=== PATIENT | female | born 1965 | race Caucasian/White ===

== ENCOUNTER → 2016-12-23 | Outpatient (CLI) | payer OTHER ==
--- NOTE | 2016-12-23 13:05 | MR ---
MR brain without contrast HISTORY: Memory loss Multiplanar multisequence imaging obtained through the brain and compared to CT brain dated 2013 FINDINGS: There is no restricted diffusion. The corpus callosum, pituitary, cervical medullary junction, cerebe llopontine angles are normal. There is a small pineal gland cyst present. There is no hydrocephalus o r hemorrhage. Inflammatory change again noted within the left maxillary sinus, ethmoid air cells. The orbits show a symmetric appearance. There are normal vascular flow voids. Periventricular white mat ter shows some minimal increased signal on inversion recovery and T2-weighted images IMPRESSION: Sinus disease. No acute abnormality. Some nonspecific white matter demyelination change a djacent to the posterior horns of the lateral ventricles is nonspecific.
== END | disposition home or self-care (01) ==
LOC: RADMRIMAIN 10:59
PROVIDERS: ATTEND Psychiatry & Neurology Neurology
DX: R41.3 Other amnesia (principal)
CPT/HCPCS: 70551

== ENCOUNTER 2016-12-30 08:18 | Day surgery (SDC) | payer OTHER ==
[2016-12-25 13:21] VITALS: BMI 19.5
[~2016-12-30 08:18] MED LIST: LIDOCAINE 1% 20 ML VIAL (10MG/ML) FOR IV START INTRADERMA PRN
[2016-12-30 08:47] VITALS: TEMP 99.2
[2016-12-30 08:58] LABS: Glucose,Whole Blood 99 mg/dL (75-99)
[2016-12-30] MEDS: LACTATED RINGERS 1,000 ML IV SCH ×2 (08:58→09:00)
[2016-12-30] MEDS ORDERED: LIDOCAINE 1% INJ 10MG/ML (20 ML MDV) ONE (09:04)
[2016-12-30] MEDS ORDERED: PROPOFOL 10 MG/ML 20 ML VIAL IV ONE (09:04)
[2016-12-30 09:57] VITALS: BP 120/64; PULSE 59; RESP 18
--- NOTE | 2017-02-17 17:49 | P.OP ---
Date of Procedure: 12/30/16 Preoperative Diagnosis: Weight loss Loss of appetite Change in bowel habits Depression Fibromyalgia Postoperative Diagnosis: Same Procedure(s) Performed: Colonoscopy with bx Anesthesia: MAC Surgeon: Tere Page Pathology: other Condition: stable Disposition: PACU Indications for Procedure: 51 years old female presents with weight loss, loss of appetite and alternating diarrhea and constipation. No history of colon cancer. informed consent obtained patient elected to undergo colonoscopy with possible biopsy Description of Procedure: The patient was brought to the endoscopy suite and placed in lateral decubitus position. IV sedation was given as per anesthesia team. Patient was on continuous vitals and pulse oximetry monitoring throughout the procedure. A timeout was performed to verify correct patient and correct procedure. Perianal examination did not show any external hemorrhoids. Digital rectal examination was performed. No masses or gross blood. A well-lubricated Olympus colonoscope was passed per rectally and was gradually advanced beyond the sigmoid colon, splenic flexure, transverse colon, hepatic flexure and cecum. The ileocecal valve was visualized as well as the appendiceal orifice . The colonoscope was gradually withdrawn inspecting all the mucosal surfaces. Bowel prep was good. No polyps, masses, AV malformations noted. No diverticulosis. Small rectal polyp identified which was biopsied using cold bx forceps. The scope was gradually withdrawn and retroflexed in the rectum . Grade 1 internal hemorrhoids seen. Total withdrawal time was greater than 6 minutes . Patient tolerated the procedure well and was taken to post anesthesia care unit in stable condition. Recommend repeat colonoscopy in 10 years . Final Pathologic Diagnosis RECTUM, BIOPSY: MUCOSAL HYPERPLASIA
== END 2016-12-30 10:41 | disposition home or self-care (01) ==
LOC: ORWHC2ENDO 08:18
PROVIDERS: ATTEND Surgery
DX: K62.1 Rectal polyp (principal); K64.0 First degree hemorrhoids; R19.4 Change in bowel habit; F17.200 Nicotine dependence, unspecified, uncomplicated; R63.0 Anorexia; M79.7 Fibromyalgia; R63.4 Abnormal weight loss; Z88.0 Allergy status to penicillin
CPT/HCPCS: 81025; 88305; 45380; J2001; J2704

== ENCOUNTER → 2017-01-01 | Outpatient (CLI) | payer OTHER ==
--- NOTE | 2017-01-01 13:32 | CT ---
EXAMINATION TYPE: CT abdomen pelvis w con DATE OF EXAM: 01/01/2017 1:00 PM HISTORY: abdominal pain, weight loss CT DLP: 329.5mGycm Automated Exposure Control for Dose Reduction was Utilized. CONTRAST: CT scan of the abdomen and pelvis is performed with IV Contrast, patient injected with 100 mL of Omni paque 300. COMPARISON: Complete abdominal ultrasound September 11, 2016 FINDINGS: Patient has very little intra-abdominal fat making evaluation suboptimal of the internal st ructures. LUNG BASES: No significant abnormality is appreciated. LIVER/GB: No significant abnormality is appreciated. PANCREAS: No significant abnormality is seen. SPLEEN: No significant abnormality is seen. ADRENALS: No significant abnormality is seen. KIDNEYS: No significant abnormality is seen. BOWEL: The oral contrast reaches level of the sigmoid colon. There is no suspicious small or large luis armando wel dilatation UTERUS/ADNEXA: Uterus has vertical orientation is not suspiciously enlarged. No free fluid is seen in pelvis. LYMPH NODES: No greater than 1cm abdominal or pelvic lymph nodes are appreciated. OSSEOUS STRUCTURES: No significant abnormality is seen. OTHER: There is mild to moderate mixed plaque in the distal abdominal aorta extending into iliac bran ch vessels. IMPRESSION: Suboptimal study due to lack of internal fat, no obvious mass or adenopathy identified. N o Significant acute finding is seen to account for patient's symptoms of pain.
== END | disposition home or self-care (01) ==
LOC: RADCTMAIN 12:31
PROVIDERS: ATTEND Surgery
DX: R10.9 Unspecified abdominal pain (principal); R63.4 Abnormal weight loss
CPT/HCPCS: 74177; Q9967

== ENCOUNTER → 2017-01-03 | Outpatient (CLI) | payer OTHER ==
[2017-01-03 12:22] VITALS: BMI 19.5
== END ==
LOC: MNTWWP 09:21
PROVIDERS: ATTEND Surgery
DX: R63.4 Abnormal weight loss (principal)
CPT/HCPCS: 97802

== ENCOUNTER 2017-07-02 00:09 | Emergency (ER) | payer OTHER ==
[2017-07-02] MEDS ORDERED: KETOROLAC 30 MG/ML 1 ML VIAL IVP STA (00:38)
[2017-07-02] MEDS ORDERED: ORPHENADRINE 30 MG/ML 2 ML VIAL IVP STA (00:38)
--- NOTE | 2017-07-02 00:59 | ED ---
General Adult HPI - General Chief complaint: Back Pain/Injury Stated complaint: Back Pain Time Seen by Provider: 07/02/17 00:31 Source: patient, RN notes reviewed Mode of arrival: ambulatory Limitations: no limitations - History of Present Illness Initial comments: This a 51-year-old female presents emergency Department chief complaint of left- sided mid back pain. Patient states his been bothersome last 4 days. Patient states it is worse movement and better at rest. Patient states she also has some pain when she takes a deep inspiration but she has no increased shortness breath. She states she has COPD and asthma and HAS some shortness of breath. Patient states that she's been working essentially every day and she lifts large amount of objects. Patient states that she has no headache no dizziness. Patient has no heart cardiac issues. Patient denies nausea vomiting diarrhea constipation. Patient denies any rashes noted to the region. - Related Data Previous Rx's Medication Instructions Recorded Cyclobenzaprine [Flexeril] 10 mg PO TID PRN #15 tab 07/02/17 Ibuprofen [Motrin] 600 mg PO Q8HR PRN #30 tab 07/02/17 Allergies Allergy/AdvReac Type Severity Reaction Status Date / Time Penicillins Allergy Severe Anaphylaxis Verified 07/02/17 00:13 Review of Systems ROS Statement: Those systems with pertinent positive or pertinent negative responses have been documented in the HPI. ROS Other: All systems not noted in ROS Statement are negative. Past Medical History Past Medical History: Asthma, COPD, Fibromyalgia, Osteoarthritis (OA) Additional Past Medical History / Comment(s): fibromyalgia,GLAUCOMA History of Any Multi-Drug Resistant Organisms: None Reported Past Surgical History: Appendectomy, Breast Surgery, Tonsillectomy, Tubal Ligation Additional Past Surgical History / Comment(s): CERVICAL SURGERY Past Anesthesia/Blood Transfusion Reactions: No Reported Reaction, Motion Sickness Past Psychological History: Anxiety, Depression, Panic Disorder, PTSD, Schizophrenia Smoking Status: Current every day smoker Past Alcohol Use History: Rare Past Drug Use History: Marijuana - Past Family History Brother(s) Family Medical History: Cancer Mother Family Medical History: Cancer Additional Family Medical History / Comment(s): MOTHER HAD BREAST CANCER Father History Unknown: Yes General Exam Limitations: no limitations General appearance: alert, in no apparent distress Neck exam: Present: normal inspection, full ROM. Absent: tenderness, meningismus, lymphadenopathy Respiratory exam: Present: normal lung sounds bilaterally, chest wall tenderness. Absent: respiratory distress, wheezes, rales, rhonchi, stridor Cardiovascular Exam: Present: regular rate, normal rhythm, normal heart sounds. Absent: systolic murmur, diastolic murmur, rubs, gallop, clicks GI/Abdominal exam: Present: soft, normal bowel sounds. Absent: distended, tenderness, guarding, rebound, rigid Back exam: Present: full ROM, tenderness (Tenderness along the left scapular region), paraspinal tenderness. Absent: vertebral tenderness Neurological exam: Present: alert, oriented X3, CN II-XII intact, reflexes normal. Absent: motor sensory deficit Skin exam: Present: warm, dry, intact, normal color. Absent: rash Course Vital Signs 07/02/17 00:13 Temperature 97.8 F Pulse Rate 70 Respiratory 18 Rate Blood Pressure 132/81 O2 Sat by Pulse 99 Oximetry EKG Findings - EKG Comments: EKG Findings:: EKG performed at 1:32 normal sinus rhythm with a rate of 69 [place] interval 158 QRS duration 88 QT/QTC 410/439 Medical Decision Making - Medical Decision Making 51-year-old female presented emergency department for thoracic back pain reproducible. Patient's pain is muscle skeletal in nature. Patient's EKG, chest x-ray and labwork within normal limits. Patient be discharged with anti- inflammatories and muscle relaxers. Return parameters were discussed. - Lab Data Result diagrams: 07/02/17 01:00 07/02/17 01:00 Lab Results 07/02/17 07/02/17 07/02/17 Range/Units 01:00 01:00 01:00 WBC 8.4 (3.8-10.6) k/uL RBC 4.43 (3.80-5.40) m/uL Hgb 14.0 (11.4-16.0) gm/dL Hct 41.8 (34.0-46.0) % MCV 94.4 (80.0-100.0) fL MCH 31.5 (25.0-35.0) pg MCHC 33.4 (31.0-37.0) g/dL RDW 14.0 (11.5-15.5) % Plt Count 216 (150-450) k/uL Neutrophils % 40 % Lymphocytes % 46 % Monocytes % 5 % Eosinophils % 7 % Basophils % 1 % Neutrophils # 3.3 (1.3-7.7) k/uL Lymphocytes # 3.8 (1.0-4.8) k/uL Monocytes # 0.5 (0-1.0) k/uL Eosinophils # 0.6 (0-0.7) k/uL Basophils # 0.1 (0-0.2) k/uL Sodium 141 (137-145) mmol/L Potassium 4.0 (3.5-5.1) mmol/L Chloride 105 (98-107) mmol/L Carbon Dioxide 27 (22-30) mmol/L Anion Gap 9 mmol/L BUN 13 (7-17) mg/dL Creatinine 0.70 (0.52-1.04) mg/dL Est GFR (MDRD) Af Amer >60 (>60 ml/min/1.73 sqM) Est GFR (MDRD) Non-Af >60 (>60 ml/min/1.73 sqM) Glucose 69 L (74-99) mg/dL Calcium 9.6 (8.4-10.2) mg/dL Magnesium 1.9 (1.6-2.3) mg/dL Total Bilirubin 0.2 (0.2-1.3) mg/dL AST 17 (14-36) U/L ALT 31 (9-52) U/L Alkaline Phosphatase 68 (38-126) U/L Troponin I <0.012 (0.000-0.034) ng/mL Total Protein 7.3 (6.3-8.2) g/dL Albumin 4.0 (3.5-5.0) g/dL Disposition Clinical Impression: Thoracic back pain, Muscle spasm Disposition: HOME SELF-CARE Condition: Stable Instructions: Back Pain (ED) Additional Instructions: Please return to the Emergency Department if symptoms worsen or any other concerns. Prescriptions: Cyclobenzaprine [Flexeril] 10 mg PO TID PRN #15 tab PRN Reason: Muscle Spasm Ibuprofen [Motrin] 600 mg PO Q8HR PRN #30 tab PRN Reason: Pain Referrals: Stepan Domingo DO [Primary Care Provider] - 1-2 days Time of Disposition: 02:06
[2017-07-02 01:10] LABS: Basophils # (A) 0.1 k/uL (0-0.2); Basophils % (A) 1 %; CHCM 35.1; Eosinophils # (A) 0.6 k/uL (0-0.7); Eosinophils % (A) 7 %; HCT 41.8 % (34.0-46.0); HDW 2.51; Luc # (Auto) 0.18; Luc % (Auto) 2; Lymphocytes # (A) 3.8 k/uL (1.0-4.8); Lymphocytes % (A) 46 %; MCH 31.5 pg (25.0-35.0); MCHC 33.4 g/dL (31.0-37.0); MCV 94.4 fL (80.0-100.0); Mean Platelet Volume 7.2; Monocytes # (A) 0.5 k/uL (0-1.0); Monocytes % (A) 5 %; Neutrophils # (A) 3.3 k/uL (1.3-7.7); Neutrophils % (A) 40 %; RBC 4.43 m/uL (3.80-5.40); WBC 8.4 k/uL (3.8-10.6); WBC (Perox) 8.09
[2017-07-02 01:20] LABS: ALT 31 U/L (9-52); AST 17 U/L (14-36); Alkaline Phosphatase 68 U/L (38-126); Anion Gap 9 mmol/L; Blood Urea Nitrogen 13 mg/dL (7-17); Calcium 9.6 mg/dL (8.4-10.2); Carbon Dioxide 27 mmol/L (22-30); Chloride 105 mmol/L (98-107); Glucose 69 mg/dL (74-99); Magnesium 1.9 mg/dL (1.6-2.3); Non-African American GFR(MDRD) >60 (>60 ml/min/1.73 sqM); Sodium 141 mmol/L (137-145); Total Bilirubin 0.2 mg/dL (0.2-1.3); Total Protein 7.3 g/dL (6.3-8.2)
--- NOTE | 2017-07-02 01:44 | XR ---
EXAM: XR Chest, 2 Views CLINICAL HISTORY: Reason: Cough/pain TECHNIQUE: Frontal and lateral views of the chest. COMPARISON: 07/23/2014 FINDINGS: Lungs: Evidence of COPD. Pleural space: Unremarkable. No pneumothorax. Heart: Unremarkable. No cardiomegaly. Mediastinum: Unremarkable. Bones/joints: Unremarkable. IMPRESSION: Evidence of COPD. No acute cardiopulmonary process suggested.
[2017-07-02 02:33] VITALS: BP 125/80; PULSE 65; RESP 15; TEMP 97.3
== END 2017-07-02 02:33 | disposition home or self-care (01) ==
LOC: EC 00:09
DX: M54.6 Pain in thoracic spine (principal); M62.830 Muscle spasm of back; R06.02 Shortness of breath; J44.9 Chronic obstructive pulmonary disease, unspecified; J45.909 Unspecified asthma, uncomplicated; F17.200 Nicotine dependence, unspecified, uncomplicated; Z88.0 Allergy status to penicillin
CPT/HCPCS: 36415; 85379; 80053; 83735; 84484; 85025; 71020; 99284; 96374; 96375; J2360; J1885

== ENCOUNTER 2018-07-14 07:13 | Emergency (ER) | payer OTHER ==
[2018-07-14] MEDS ORDERED: IPRATROPIUM-ALBUTEROL 3 ML NEB INHALATION STA (07:36)
[2018-07-14] MEDS ORDERED: methylPREDNISolone SOD SUCCI 125 MG/2 ML VIAL IM ONE (07:36)
[2018-07-14] MEDS ORDERED: cefTRIAXone 1,000 MG VIAL (IM USE) IM STA (07:37)
--- NOTE | 2018-07-14 07:41 | ED ---
General Adult HPI - General Chief complaint: Shortness of Breath Stated complaint: SOB Time Seen by Provider: 07/14/18 07:15 Source: patient, RN notes reviewed Mode of arrival: ambulatory Limitations: no limitations - History of Present Illness Initial comments: This is a 52-year-old female who presents emergency department stating that she has been coughing a lot over the last 4 so days. Patient states she started with a sore throat and then some facial congestion now quite a bit of drainage and cough. Patient states she's also smoker so she's been short of breath and particularly when coughing. Patient states she feels as though she is wheezing a lot more than normal. Patient states about 3 days ago she had a fever but she hasn't had one since. Patient states the sore throat is gone today. But the coughing and coughing up sputum is worse. Patient denies any chest pain or palpitations. Patient denies any back pain. Patient denies any abdominal pain patient denies nausea vomiting diarrhea. Patient denies any diaphoresis. Patient denies any calf tenderness or leg swelling - Related Data Home Medications Medication Instructions Recorded Confirmed Albuterol Inhaler [Ventolin Hfa 1 - 2 puff INHALATION RT-Q6H PRN 07/14/18 Inhaler] Phenylephrine/Dm/Acetaminop/GG 10 ml PO Q4H PRN 07/14/18 07/14/18 [Vicks Dayquil Severe Cold-Flu] guaiFENesin [Mucinex] 600 mg PO Q12H 07/14/18 07/14/18 Previous Rx's Medication Instructions Recorded Albuterol Inhaler [Ventolin Hfa 1 - 2 puff INHALATION Q6HR PRN #2 07/14/18 Inhaler] puff Azithromycin [Zithromax Tri-Duane] 500 mg PO DAILY #3 tab 07/14/18 predniSONE 40 mg PO DAILY #8 tab 07/14/18 Allergies Allergy/AdvReac Type Severity Reaction Status Date / Time Penicillins Allergy Severe Anaphylaxis Verified 07/14/18 07:39 Review of Systems ROS Statement: Those systems with pertinent positive or pertinent negative responses have been documented in the HPI. ROS Other: All systems not noted in ROS Statement are negative. Past Medical History Past Medical History: Asthma, COPD, Fibromyalgia, Osteoarthritis (OA) Additional Past Medical History / Comment(s): fibromyalgia,GLAUCOMA History of Any Multi-Drug Resistant Organisms: None Reported Past Surgical History: Appendectomy, Breast Surgery, Tonsillectomy, Tubal Ligation Additional Past Surgical History / Comment(s): CERVICAL SURGERY Past Anesthesia/Blood Transfusion Reactions: No Reported Reaction, Motion Sickness Past Psychological History: Anxiety, Depression, Panic Disorder, PTSD, Schizophrenia Smoking Status: Current every day smoker Past Alcohol Use History: Rare Past Drug Use History: Marijuana - Past Family History Brother(s) Family Medical History: Cancer Mother Family Medical History: Cancer Additional Family Medical History / Comment(s): MOTHER HAD BREAST CANCER Father History Unknown: Yes General Exam - General Exam Comments Initial Comments: GENERAL: Patient is well-developed and well-nourished. Patient is nontoxic and well- hydrated and is in mild distress. ENT: Neck is soft and supple. No significant lymphadenopathy is noted. Oropharynx is clear. Moist mucous membranes. Neck has full range of motion without eliciting any pain. EYES: The sclera were anicteric and conjunctiva were pink and moist. Extraocular movements were intact and pupils were equal round and reactive to light. Eyelids were unremarkable. PULMONARY: Patient has expiratory wheezing diffusely CARDIOVASCULAR: There is a regular rate and rhythm without any murmurs gallops or rubs. ABDOMEN: Soft and nontender with normal bowel sounds. No palpable organomegaly was noted. There is no palpable pulsatile mass. SKIN: Skin is clear with no lesions or rashes and otherwise unremarkable. NEUROLOGIC: Patient is alert and oriented x3. Cranial nerves II through XII are grossly intact. Motor and sensory are also intact. Normal speech, volume and content. Symmetrical smile. MUSCULOSKELETAL: Normal extremities with adequate strength and full range of motion. No lower extremity swelling or edema. No calf tenderness. LYMPHATICS: No significant lymphadenopathy is noted PSYCHIATRIC: Normal psychiatric evaluation. Limitations: no limitations Course Vital Signs 07/14/18 07/14/18 07/14/18 07:16 07:59 08:06 Temperature 98.4 F Pulse Rate 94 75 78 Respiratory 22 Rate Blood Pressure 165/102 O2 Sat by Pulse 98 Oximetry 07/14/18 09:07 Temperature 98.1 F Pulse Rate 78 Respiratory 18 Rate Blood Pressure 145/80 O2 Sat by Pulse 97 Oximetry Medical Decision Making - Medical Decision Making Chest x-ray shows no acute abnormality. Patient received a breathing treatment in emergency department steroids and a shot of Rocephin. I went back into the room to reevaluate the patient her lung sounds were much improved and she felt considerably better. Patient we discharged home with an albuterol inhaler steroids and antibiotics. Disposition Clinical Impression: Acute bronchitis Disposition: HOME SELF-CARE Instructions: Acute Bronchitis (ED) Prescriptions: Albuterol Inhaler [Ventolin Hfa Inhaler] 1 - 2 puff INHALATION Q6HR PRN #2 puff PRN Reason: Difficulty breathing Azithromycin [Zithromax Tri-Duane] 500 mg PO DAILY #3 tab predniSONE 40 mg PO DAILY #8 tab Is patient prescribed a controlled substance at d/c from ED?: No Referrals: Stepan Domingo DO [Primary Care Provider] - 1-2 days Time of Disposition: 09:21
[2018-07-14 08:11] VITALS: PULSE 78
--- NOTE | 2018-07-14 08:57 | XR ---
EXAMINATION TYPE: XR chest 2V DATE OF EXAM: 07/14/2018 COMPARISON: Prior chest x-ray 07/02/2017 HISTORY: Difficulty breathing, cough TECHNIQUE: Frontal and lateral views of the chest are obtained. FINDINGS: There is no focal air space opacity, pleural effusion, or pneumothorax seen. The cardiac silhouette size is within normal limits. Prominent lung volumes are compatible with underlying COPD. There is bronchial wall thickening. The osseous structures are intact. IMPRESSION: Correlate for bronchitis, reactive airways disease, follow-up as indicated.
[2018-07-14 09:08] VITALS: BP 145/80; RESP 18; TEMP 98.1
== END 2018-07-14 09:29 | disposition home or self-care (01) ==
LOC: EC 07:13
DX: J20.9 Acute bronchitis, unspecified (principal); J44.0 Chronic obstructive pulmonary disease with (acute) lower respiratory infection; M79.7 Fibromyalgia; M19.90 Unspecified osteoarthritis, unspecified site; F41.9 Anxiety disorder, unspecified; F32.9 Major depressive disorder, single episode, unspecified; F43.10 Post-traumatic stress disorder, unspecified; F20.9 Schizophrenia, unspecified; F17.200 Nicotine dependence, unspecified, uncomplicated; Z79.899 Other long term (current) drug therapy; Z88.0 Allergy status to penicillin
CPT/HCPCS: 94640; 71046; 99285; 96372 ×2; J2930; J0696

== ENCOUNTER 2019-02-20 00:21 | Emergency (ER) | payer OTHER ==
[2019-02-20 00:40] VITALS: TEMP 98.1
[2019-02-20] MEDS ORDERED: DIPH,PERTUS(ACELL)TETVAC-LF 0.5 ML VIAL IM ONE (00:47)
[2019-02-20] MEDS ORDERED: LIDOCAINE 1% INJ 10MG/ML (20 ML MDV) SQ ONE (00:47)
--- NOTE | 2019-02-20 00:52 | ED ---
Wound/Laceration HPI <Yosvany Love - Last Filed: 02/20/19 03:18> - General Source: patient Mode of arrival: ambulatory Limitations: no limitations <Angie Yi - Last Filed: 02/20/19 05:37> - General Chief Complaint: Wound/Laceration Stated Complaint: [facility] L Thumb Laceration Time Seen by Provider: 02/20/19 00:50 - History of Present Illness Initial Comments: Chelsea is a 53-year-old female presents to the emergency department today for evaluation of laceration to the left thumb. Patient states that she was slicing meat on a slicer at work when she inadvertently sliced her thumb. Patient states she had just sanitize the slicer earlier in the shift. Patient does not believe she's had a tetanus vaccine since she was a teenager. (Angie Yi) - Related Data Home Medications Medication Instructions Recorded Confirmed Albuterol Inhaler [Ventolin Hfa 1 - 2 puff INHALATION RT-Q6H PRN 07/14/18 07/14/18 Inhaler] Phenylephrine/Dm/Acetaminop/GG 10 ml PO Q4H PRN 07/14/18 07/14/18 [Vicks Dayquil Severe Cold-Flu] guaiFENesin [Mucinex] 600 mg PO Q12H 07/14/18 07/14/18 Previous Rx's Medication Instructions Recorded Albuterol Inhaler [Ventolin Hfa 1 - 2 puff INHALATION Q6HR PRN #2 07/14/18 Inhaler] puff Azithromycin [Zithromax Tri-Duane] 500 mg PO DAILY #3 tab 07/14/18 predniSONE 40 mg PO DAILY #8 tab 07/14/18 Allergies Allergy/AdvReac Type Severity Reaction Status Date / Time Penicillins Allergy Severe Anaphylaxis Verified 02/20/19 00:34 Review of Systems ROS Other: All systems not noted in ROS Statement are negative. <Yosvany Love - Last Filed: 02/20/19 03:18> ROS Other: All systems not noted in ROS Statement are negative. <Angie Yi - Last Filed: 02/20/19 05:37> ROS Statement: Those systems with pertinent positive or pertinent negative responses have been documented in the HPI. Past Medical History Past Medical History: Asthma, COPD, Fibromyalgia, Hypertension, Osteoarthritis (OA) Additional Past Medical History / Comment(s): fibromyalgia,GLAUCOMA History of Any Multi-Drug Resistant Organisms: None Reported Past Surgical History: Appendectomy, Breast Surgery, Tonsillectomy, Tubal Ligation Additional Past Surgical History / Comment(s): CERVICAL SURGERY Past Anesthesia/Blood Transfusion Reactions: No Reported Reaction, Motion Sickness Past Psychological History: Anxiety, Depression, Panic Disorder, PTSD, Schizophrenia Smoking Status: Current every day smoker Past Alcohol Use History: Rare Past Drug Use History: Marijuana - Past Family History Brother(s) Family Medical History: Cancer Mother Family Medical History: Cancer Additional Family Medical History / Comment(s): MOTHER HAD BREAST CANCER Father History Unknown: Yes <Angie Yi - Last Filed: 02/20/19 05:37> General Exam Limitations: no limitations <Angie Yi - Last Filed: 02/20/19 05:37> - General Exam Comments Initial Comments: Physical Exam GENERAL: Patient is well-developed and well-nourished. Patient is nontoxic and well-hydrated and is in moderate distress due to pain HENT: Normocephalic, Atraumatic. EYES: PERRL, EOMI PULMONARY: Unlabored respirations. No audible rales rhonchi or wheezing was noted. CARDIOVASCULAR: There is a regular rate and rhythm without any murmurs gallops or rubs. ABDOMEN: Soft and nontender with normal bowel sounds. SKIN: Very clean laceration to the left thumb, near amputation of the tip of the finger including finger nail, not including the nail bed : Deferred NEUROLOGIC: Patient is alert and oriented x3. Moving all extremities spontaneously MUSCULOSKELETAL: Normal extremities with adequate strength and full range of motion. No lower extremity swelling or edema. No calf tenderness. PSYCHIATRIC: Normal psychiatric evaluation. (Angie Yi) Course Vital Signs 02/20/19 02/20/19 02/20/19 00:29 03:12 04:33 Temperature 98.1 F Pulse Rate 86 70 68 Respiratory 20 16 16 Rate Blood Pressure 210/112 200/107 170/98 O2 Sat by Pulse 100 97 100 Oximetry Procedures - Incision & Drainage Site: other Size (cm): 2 Amount (mLs): 2 - Laceration Laceration #1 Consent Obtained: verbal consent Indication: laceration Site: upper extremity, other (R thumb) Size (cm): 2 Description: linear, stellate Anesthetic Used: lidocaine 1% Anesthesia Technique: local infiltration Amount (mls): 2 Pre-repair: wound explored, irrigated extensively (500mL NS ) Type of Sutures: nylon Size of Sutures: 5-0 Number of Sutures: 1 Technique: simple, interrupted Patient Tolerated Procedure: well, no complications <Yosvany Love - Last Filed: 02/20/19 03:18> Medical Decision Making <Angie Yi - Last Filed: 02/20/19 05:37> - Medical Decision Making Patient was seen and evaluated history is obtained from patient X-rays ordered to rule out any bony involvement Medications were ordered for nerve block and tetanus was ordered X-ray with no foreign bodies, no bony involvement laceration was repaired by mid-level provider Patient was noted to be hypertensive, I discussed this with patient states that her blood pressures usually 170/100. Single oral dose of Catapres was ordered. Patient's blood pressure decreased to her normal. I advised her that this is still very highly elevated and she needs follow-up with her primary care physician for better control of her hypertension. All questions pertaining care were answered return parameters were discussed patient was discharged home in stable condition and advised to return in one week for suture removal or return sooner if she has any concerns for infection. (Angie Yi) Disposition <Yosvany Love - Last Filed: 02/20/19 03:18> Is patient prescribed a controlled substance at d/c from ED?: No <Angie Yi - Last Filed: 02/20/19 05:37> Clinical Impression: Laceration Disposition: HOME SELF-CARE Condition: Stable Instructions (If sedation given, give patient instructions): Care For Your Stitches (ED), Laceration (ED) Referrals: Stepan Domingo DO [Primary Care Provider] - 1-2 days
[2019-02-20] MEDS: BUPIVACAINE (PF) 0.5% 30 ML VIAL SQ STA ×2 (01:15→03:11)
--- NOTE | 2019-02-20 01:20 | XR ---
EXAM: XR Left Finger(s), 2 or More Views CLINICAL HISTORY: Thumb laceration TECHNIQUE: Frontal, lateral and oblique views of finger(s) of the left hand. COMPARISON: No relevant prior studies available. FINDINGS: Bones/joints: Unremarkable. No acute fracture. No dislocation. Soft tissues: Unremarkable. No radiopaque foreign body. IMPRESSION: Normal x-rays of the visualized left fingers.
[2019-02-20] MEDS ORDERED: TOPICAL SKIN ADHESIVE 1 EACH AMP TOPICAL ONE (02:41)
[2019-02-20 03:13] VITALS: RESP 16
[2019-02-20] MEDS ORDERED: cloNIDine HCL 0.1 MG TAB PO STA (03:15)
[2019-02-20 04:34] VITALS: BP 170/98; PULSE 68
== END 2019-02-20 04:40 | disposition home or self-care (01) ==
LOC: EC 00:21
DX: S61.012A Laceration without foreign body of left thumb without damage to nail, initial encounter (principal); I10 Essential (primary) hypertension; J44.9 Chronic obstructive pulmonary disease, unspecified; F17.200 Nicotine dependence, unspecified, uncomplicated; Z88.0 Allergy status to penicillin; Z79.899 Other long term (current) drug therapy; Z23 Encounter for immunization; Z53.8 Procedure and treatment not carried out for other reasons; W26.8XXA Contact with other sharp object(s), not elsewhere classified, initial encounter; Y93.G1 Activity, food preparation and clean up; Y92.69 Other specified industrial and construction area as the place of occurrence of the external cause; Y99.0 Civilian activity done for income or pay
CPT/HCPCS: 73140; 90715; 99283; 90471; 12001; J2001

== ENCOUNTER 2019-09-24 08:15 | Emergency (ER) | payer OTHER ==
[2019-09-24 08:24] VITALS: RESP 18
[2019-09-24] MEDS ORDERED: HYDROcodone/APAP 5-325MG 1 EACH TAB PO STA (08:31)
--- NOTE | 2019-09-24 08:34 | ED ---
Fall HPI - General Chief Complaint: Fall Stated Complaint: Fall Time Seen by Provider: 09/24/19 08:21 Source: patient, EMS, RN notes reviewed, old records reviewed Mode of arrival: EMS - History of Present Illness Initial Comments: 53-year-old female. She presents emergency department stay after tripping down her stairs. She reports that she tumbled down approximately 8-10 stairs. She states that she did do a head over heels flip at that time and then landed on her left shoulder. She reports that her main complaint is left shoulder pain. Patient states that she has had some minor neck pain. Patient also states that she's been having some minor left-sided rib pain with taking a deep breath. She denies any abdominal pain. Patient does not heal thinners. - Related Data Home Medications Medication Instructions Recorded Confirmed Albuterol Inhaler [Ventolin Hfa 1 - 2 puff INHALATION RT-Q6H PRN 07/14/18 07/14/18 Inhaler] Phenylephrine/Dm/Acetaminop/GG 10 ml PO Q4H PRN 07/14/18 07/14/18 [Vicks Dayquil Severe Cold-Flu] guaiFENesin [Mucinex] 600 mg PO Q12H 07/14/18 07/14/18 Previous Rx's Medication Instructions Recorded Albuterol Inhaler [Ventolin Hfa 1 - 2 puff INHALATION Q6HR PRN #2 07/14/18 Inhaler] puff Azithromycin [Zithromax Tri-Duane] 500 mg PO DAILY #3 tab 07/14/18 predniSONE 40 mg PO DAILY #8 tab 07/14/18 HYDROcodone/APAP 5-325MG [Coldiron 1 tab PO Q6HR PRN #10 tab 09/24/19 5-325] Ibuprofen [Motrin] 600 mg PO Q6HR PRN #20 tab 09/24/19 Allergies Allergy/AdvReac Type Severity Reaction Status Date / Time Penicillins Allergy Severe Anaphylaxis Verified 02/20/19 00:34 Review of Systems ROS Statement: Those systems with pertinent positive or pertinent negative responses have been documented in the HPI. ROS Other: All systems not noted in ROS Statement are negative. Past Medical History Past Medical History: Asthma, COPD, Fibromyalgia, Hypertension, Osteoarthritis (OA) Additional Past Medical History / Comment(s): fibromyalgia,GLAUCOMA History of Any Multi-Drug Resistant Organisms: None Reported Past Surgical History: Appendectomy, Breast Surgery, Tonsillectomy, Tubal Ligation Additional Past Surgical History / Comment(s): CERVICAL SURGERY Past Anesthesia/Blood Transfusion Reactions: No Reported Reaction, Motion Sickness Past Psychological History: Anxiety, Depression, Panic Disorder, PTSD, Schizophrenia Smoking Status: Current every day smoker Past Alcohol Use History: Rare Past Drug Use History: Marijuana - Past Family History Brother(s) Family Medical History: Cancer Mother Family Medical History: Cancer Additional Family Medical History / Comment(s): MOTHER HAD BREAST CANCER Father History Unknown: Yes General Exam - General Exam Comments Initial Comments: This is a 53-year-old female. Alert and oriented 3. Limitations: no limitations General appearance: alert, in no apparent distress Head exam: Present: atraumatic, normocephalic, normal inspection Eye exam: Present: normal appearance, PERRL, EOMI. Absent: scleral icterus, conjunctival injection, periorbital swelling ENT exam: Present: normal exam, mucous membranes moist Neck exam: Present: normal inspection. Absent: tenderness, meningismus, lymphadenopathy Respiratory exam: Present: normal lung sounds bilaterally Cardiovascular Exam: Present: regular rate, normal rhythm, normal heart sounds. Absent: systolic murmur, diastolic murmur, rubs, gallop, clicks GI/Abdominal exam: Present: soft, normal bowel sounds. Absent: distended, tenderness, guarding, rebound, rigid Extremities exam: Present: normal inspection, full ROM, normal capillary refill. Absent: tenderness, pedal edema, joint swelling, calf tenderness Left Shoulder Exam: Present: tenderness (Patient has tenderness, bruising and swelling over the deltoid.). Absent: normal inspection Upper Arm exam: Present: normal inspection, full ROM Elbow exam: Present: normal inspection, full ROM Forearm Wrist exam: Present: normal inspection, full ROM Back exam: Present: normal inspection Neurological exam: Present: alert, oriented X3, CN II-XII intact Psychiatric exam: Present: normal affect, normal mood Skin exam: Present: warm, dry, intact, normal color. Absent: rash Course Vital Signs 09/24/19 08:17 Temperature 98.5 F Pulse Rate 80 Respiratory 18 Rate Blood Pressure 168/128 O2 Sat by Pulse 98 Oximetry Procedures - Orthopedic Splinting/Casting Injury #1 Side: left Upper Extremity Injury Location: shoulder Upper Extremity Immobilizer: sling/shoulder immobilizer Medical Decision Making - Medical Decision Making 53-year-old female presents today after falling down her stairs after tripping over her dog. Patient complains of left shoulder pain and minor neck pain. CT brain and C-spine are negative for acute process. Left shoulder does have some tenderness, pain with range of motion. X-ray shows evidence of a distal comminuted clavicle fracture. No skin tenting is noted. Patient has a 2+ radial pulse and full range of motion and closing manager strength in her left hand.Patient is placed in a shoulder immobilizer. Discharged with a prescription for pain medication. I discussed the can follow-up with payroll tax specialist. Discussed return parameters. - Radiology Data Radiology results: report reviewed CT of the brain shows no acute intracranial process. Opacification of the left axillary mild mucosal thickening in the ethmoid air cells. CT of the cervical s pine is normal. No fractures or dislocations evident. Shoulder x-ray shows evidence of a mildly comminuted acute minimally displaced left distal clavicle fracture. No acute croup. Process. New left distal clavicle fracture within the distal fragment is superiorly displaced. Disposition Clinical Impression: Closed fracture of distal clavicle Disposition: HOME SELF-CARE Condition: Good Instructions (If sedation given, give patient instructions): Fall Prevention (ED), Clavicle Fracture (ED) Additional Instructions: Patient has follow-up with payroll tax specialist. Recommended applying ice over the shoulder. Wear the shoulder immobilizer. Recommended sleeping on couch or upright positions.Return to the emergency department if any alarming signs or symptoms occur. Prescriptions: Ibuprofen [Motrin] 600 mg PO Q6HR PRN #20 tab PRN Reason: Pain HYDROcodone/APAP 5-325MG [Coldiron 5-325] 1 tab PO Q6HR PRN #10 tab PRN Reason: Pain Is patient prescribed a controlled substance at d/c from ED?: Yes If prescribed controlled substance>3 days was MAPS reviewed?: Prescribed <3 Days If opioid is for acute pain is fill amount 7 days or less?: Yes If Rx opioid, was Start Talking consent form obtained?: Yes Referrals: Stepan Domingo DO [Primary Care Provider] - 1-2 days Yosvany Kate MD [STAFF PHYSICIAN] - 1-2 days Time of Disposition: 09:50
--- NOTE | 2019-09-24 09:01 | XR ---
EXAMINATION TYPE: XR chest 2V DATE OF EXAM: 09/24/2019 COMPARISON: HISTORY: Chest pain TECHNIQUE: Frontal and lateral views of the chest are obtained. FINDINGS: There is no focal air space opacity, pleural effusion, or pneumothorax seen. The cardiac silhouette size is within normal limits. The osseous structures are intact. IMPRESSION: No acute cardiopulmonary process. There is a new left distal clavicular fracture with th e distal fracture fragment is superiorly displaced.
--- NOTE | 2019-09-24 09:02 | XR ---
EXAMINATION TYPE: XR shoulder complete LT DATE OF EXAM: 09/24/2019 CLINICAL HISTORY: Left shoulder pain after fall TECHNIQUE: Three views of the left shoulder are obtained. COMPARISON: None. FINDINGS: There is an acute mildly displaced left distal clavicular fracture with the distal fracture fragment displaced 5 mm cranially. Acromio clavicular joint space is maintained. Fracture is mildly comminuted. No dislocation of the left shoulder. No humeral fracture seen. IMPRESSION: Mildly comminuted acute minimally displaced left distal clavicular fracture.
--- NOTE | 2019-09-24 09:14 | CT ---
EXAMINATION TYPE: CT brain jamaal wo con DATE OF EXAM: 09/24/2019 COMPARISON: 07/23/2014 HISTORY: Fall downstairs, head trauma, neck tenderness CT DLP: 1071 mGycm, Automated exposure control for dose reduction was used. CONTRAST: Patient injected with 0 mL of Isovue 300. CT of the brain is performed utilizing 3 mm thick sections through the posterior fossa and 3 mm thick sections through the remaining calvarium. Study is performed within 24 hours of arrival to the hospital. No abnormal hyperdensity is present to suggest an acute intracranial hemorrhage. No mass lesion is evident. No acute infarcts are evident. Ventricles and sulci are appropriate for the patient age. There is opacification of the left maxillary sinus. There is some minimal mucosal thickening within l eft ethmoid air cells. Remaining paranasal sinuses and mastoid air cells are clear. IMPRESSIONS: 1. No acute intracranial process. 2. Opacification of the left maxillary mild mucosal thickening within the left ethmoid air cells. CT cervical spine. COMPARISON: None CT of the cervical spine is performed in the axial plane at 2 mm thick sections. Reconstructed image s in the coronal, and sagittal plane are reviewed on the computer. No acute fractures are evident. Vertebral body alignment is normal. Disc heights are preserved. Vertebral body heights are preserved. No spinal canal stenosis is evident. No neural foraminal stenosis is evident. IMPRESSIONS: 1. Normal CT cervical spine.
[2019-09-24 10:12] VITALS: BP 168/78; PULSE 70; TEMP 98
== END 2019-09-24 10:00 | disposition home or self-care (01) ==
LOC: EC 08:15
DX: S42.032A Displaced fracture of lateral end of left clavicle, initial encounter for closed fracture (principal); J44.9 Chronic obstructive pulmonary disease, unspecified; I10 Essential (primary) hypertension; F17.200 Nicotine dependence, unspecified, uncomplicated; Z88.0 Allergy status to penicillin; W10.9XXA Fall (on) (from) unspecified stairs and steps, initial encounter
CPT/HCPCS: 70450; 71046; 72125; 99284

== ENCOUNTER → 2019-10-26 | Outpatient (CLI) | payer OTHER ==
--- NOTE | 2019-10-27 12:09 | MM ---
Reason for exam: screening (asymptomatic). Last mammogram was performed 4 years ago. History: Family history of breast cancer in mother at age 50. Benign left US cyst aspiration of the left breast, May 31, 2011. Benign excisional biopsy of both breasts, 1998. Physical Findings: A clinical breast exam by your physician is recommended on an annual basis and results should be correlated with mammographic findings. MG Screening Mammo w CAD Bilateral CC and MLO view(s) were taken. Prior study comparison: October 11, 2015, bilateral MG 3d diag mammo w/cad [facility]. May 09, 2011, CAD bilateral diagnostic mammogram. There are scattered fibroglandular densities. There is no discrete abnormality. ASSESSMENT: Negative, BI-RAD 1 RECOMMENDATION: Routine screening mammogram of both breasts in 1 year.
== END | disposition home or self-care (01) ==
LOC: RADMAMWWP 09:24
PROVIDERS: ATTEND Family Medicine
DX: Z12.31 Encounter for screening mammogram for malignant neoplasm of breast (principal)
CPT/HCPCS: 77067

== ENCOUNTER 2020-01-16 09:05 | Emergency (ER) | payer OTHER ==
[2020-01-16 09:10] VITALS: TEMP 98
--- NOTE | 2020-01-16 09:22 | ED ---
General Adult HPI - General Chief complaint: Extremity Injury, Upper Stated complaint: LEFT ARM PAIN Time Seen by Provider: 01/16/20 09:13 Source: patient, RN notes reviewed Mode of arrival: ambulatory Limitations: no limitations - History of Present Illness Initial comments: This is a 54-year-old female who presents with complaints of left shoulder pain. She states she had a fractured left clavicle on September 24 2 clinical back to work on a proximally December 23 she states she did have increased pain to the left shoulder especially with any type of movement or range of motion. She denies any new trauma fevers chills sweats cough or other symptoms no other injury reported. No numbness tingling or loss of function just the pain with movement - Related Data Home Medications Medication Instructions Recorded Confirmed Albuterol Inhaler (Bulk) [Ventolin 1 - 2 puff INHALATION RT-Q6H PRN 07/14/18 07/14/18 Hfa Inhaler] Phenylephrine/Dm/Acetaminop/GG 10 ml PO Q4H PRN 07/14/18 07/14/18 [Vicks Dayquil Severe Cold-Flu] guaiFENesin [Mucinex] 600 mg PO Q12H 07/14/18 07/14/18 Previous Rx's Medication Instructions Recorded Albuterol Inhaler (Bulk) [Ventolin 1 - 2 puff INHALATION Q6HR PRN #2 07/14/18 Hfa Inhaler (Bulk)] puff Azithromycin [Zithromax Tri-Duane] 500 mg PO DAILY #3 tab 07/14/18 predniSONE [Deltasone] 40 mg PO DAILY #8 tab 07/14/18 HYDROcodone/APAP 5-325MG [[place] 1 tab PO Q6HR PRN #10 tab 09/24/19 5-325] Ibuprofen [Motrin] 600 mg PO Q6HR PRN #20 tab 09/24/19 Cyclobenzaprine [Flexeril] 10 mg PO TID #14 tab 01/16/20 Ibuprofen 800 mg PO Q6HR PRN #20 tablet 01/16/20 Allergies Allergy/AdvReac Type Severity Reaction Status Date / Time Penicillins Allergy Severe Anaphylaxis Verified 01/16/20 09:10 Review of Systems ROS Statement: Those systems with pertinent positive or pertinent negative responses have been documented in the HPI. ROS Other: All systems not noted in ROS Statement are negative. Past Medical History Past Medical History: Asthma, COPD, Fibromyalgia, Hypertension, Osteoarthritis (OA) Additional Past Medical History / Comment(s): fibromyalgia,GLAUCOMA History of Any Multi-Drug Resistant Organisms: None Reported Past Surgical History: Appendectomy, Breast Surgery, Tonsillectomy, Tubal Ligation Additional Past Surgical History / Comment(s): CERVICAL SURGERY Past Anesthesia/Blood Transfusion Reactions: No Reported Reaction, Motion Sickness Past Psychological History: Anxiety, Depression, Panic Disorder, PTSD, Schizophrenia Smoking Status: Current every day smoker Past Alcohol Use History: Rare Past Drug Use History: Marijuana - Past Family History Brother(s) Family Medical History: Cancer Mother Family Medical History: Cancer Additional Family Medical History / Comment(s): MOTHER HAD BREAST CANCER Father History Unknown: Yes General Exam - General Exam Comments Initial Comments: This a well-developed well-nourished awake alert oriented 3 female Limitations: no limitations General appearance: alert, in no apparent distress Head exam: Present: atraumatic, normocephalic, normal inspection Eye exam: Present: normal appearance, PERRL, EOMI. Absent: scleral icterus, conjunctival injection, periorbital swelling ENT exam: Present: normal exam, mucous membranes moist Neck exam: Present: normal inspection. Absent: tenderness, meningismus, lymphadenopathy Respiratory exam: Present: normal lung sounds bilaterally. Absent: respiratory distress, wheezes, rales, rhonchi, stridor Cardiovascular Exam: Present: regular rate, normal rhythm, normal heart sounds. Absent: systolic murmur, diastolic murmur, rubs, gallop, clicks GI/Abdominal exam: Absent: distended, tenderness, guarding, rebound, rigid Extremities exam: Present: normal inspection, tenderness (Tennis palpation of the left shoulder over the rotator cuff region no overt step-off or crepitation limited range of motion secondary to pain no sensorimotor or vascular deficits), normal capillary refill. Absent: pedal edema, joint swelling, calf tenderness Back exam: Present: normal inspection Neurological exam: Present: alert, oriented X3, CN II-XII intact Psychiatric exam: Present: normal affect, normal mood Skin exam: Present: warm, dry, intact, normal color. Absent: rash Course Vital Signs 01/16/20 01/16/20 09:07 10:08 Temperature 98.0 F Pulse Rate 75 74 Respiratory 16 18 Rate Blood Pressure 198/105 192/106 O2 Sat by Pulse 99 99 Oximetry Medical Decision Making - Medical Decision Making I did discuss findings with the patient she has tenderness over the distal clavicle and over the musculature of the left shoulder. She does have signs SHE also has medication at home except for the Motrin 600 mg she will be placed on 800 mg as well as a muscle relaxant she did drive today she is aware that she could not receive anything that may affect driving she will get a prescription [facility] pharmacy she also will follow-up with Dr. Kate tomorrow - Radiology Data Radiology results: report reviewed (I did review the imaging and report evidence of a malunion of the distal), image reviewed Disposition Clinical Impression: Left shoulder pain, Fracture of left clavicle with malunion Disposition: HOME SELF-CARE Condition: Good Prescriptions: Cyclobenzaprine [Flexeril] 10 mg PO TID #14 tab Ibuprofen 800 mg PO Q6HR PRN #20 tablet PRN Reason: Pain Is patient prescribed a controlled substance at d/c from ED?: No Referrals: Stepan Domingo DO [Primary Care Provider] - 1-2 days Yosvany Kate MD [STAFF PHYSICIAN] - 1-2 days
--- NOTE | 2020-01-16 09:58 | XR ---
EXAMINATION TYPE: XR shoulder complete LT , 3 VIEWS DATE OF EXAM ORDERED: 01/16/2020 HISTORY: Pain history of recent left clavicle fracture. COMPARISON: Previous study dated 09/24/2019. FINDINGS: There is a fracture of the distal one third of the left clavicle which has gone on to nonu nion with some resolution of the proximal fracture fragment. This has progressed slightly from the pr evious study dated 09/24/2019. No new fracture or dislocation is seen. IMPRESSION: EVIDENCE OF MALUNION OF A FRACTURE THE DISTAL ONE THIRD OF THE CLAVICLE.
[2020-01-16 10:08] VITALS: BP 192/106; PULSE 74; RESP 18
== END 2020-01-16 10:27 | disposition home or self-care (01) ==
LOC: EC 09:05
DX: S42.032P Displaced fracture of lateral end of left clavicle, subsequent encounter for fracture with malunion (principal); J44.9 Chronic obstructive pulmonary disease, unspecified; I10 Essential (primary) hypertension; F17.200 Nicotine dependence, unspecified, uncomplicated; Z88.0 Allergy status to penicillin
CPT/HCPCS: 99283

== ENCOUNTER 2020-06-11 11:53 | Observation (INO) | payer OTHER ==
--- NOTE | 2020-06-11 12:16 | ED ---
General Adult HPI - General Chief complaint: Chest Pain Stated complaint: Chest Pain Time Seen by Provider: 06/11/20 12:03 Source: patient, RN notes reviewed, old records reviewed Mode of arrival: ambulatory Limitations: no limitations - History of Present Illness Initial comments: 54-year-old female history of hypertension, current smoker presenting for evaluation of left-sided chest pain. Pain is been intermittent, ongoing for several weeks, this morning she woke with the pain on the left side of her chest. This was nonradiating. Describes it as a ball, dials fullness in her chest. She reports mild dyspnea but states this is baseline secondary to her COPD. No new or worsening cough. No fever. No abdominal pain nausea or vomiting. She has no known history of coronary artery disease. - Related Data Home Medications Medication Instructions Recorded Confirmed Albuterol Inhaler (Mhu) [Ventolin 1 - 2 puff INHALATION RT-Q6H PRN 07/14/18 07/14/18 Hfa Inhaler] Phenylephrine/Dm/Acetaminop/GG 10 ml PO Q4H PRN 07/14/18 07/14/18 [Vicks Dayquil Severe Cold-Flu] guaiFENesin [Mucinex] 600 mg PO Q12H 07/14/18 07/14/18 Previous Rx's Medication Instructions Recorded Albuterol Inhaler (Mhu) [Ventolin 1 - 2 puff INHALATION Q6HR PRN #2 07/14/18 Hfa Inhaler (Mhu)] puff Azithromycin [Zithromax Tri-Duane] 500 mg PO DAILY #3 tab 07/14/18 predniSONE [Deltasone] 40 mg PO DAILY #8 tab 07/14/18 HYDROcodone/APAP 5-325MG [[place] 1 tab PO Q6HR PRN #10 tab 09/24/19 5-325] Ibuprofen [Motrin] 600 mg PO Q6HR PRN #20 tab 09/24/19 Cyclobenzaprine [Flexeril] 10 mg PO TID #14 tab 01/16/20 Ibuprofen 800 mg PO Q6HR PRN #20 tablet 01/16/20 Allergies Allergy/AdvReac Type Severity Reaction Status Date / Time Penicillins Allergy Severe Anaphylaxis Verified 06/11/20 12:00 Review of Systems ROS Statement: Those systems with pertinent positive or pertinent negative responses have been documented in the HPI. ROS Other: All systems not noted in ROS Statement are negative. Past Medical History Past Medical History: Asthma, COPD, Fibromyalgia, Hypertension, Osteoarthritis (OA) Additional Past Medical History / Comment(s): GLAUCOMA History of Any Multi-Drug Resistant Organisms: None Reported Past Surgical History: Appendectomy, Breast Surgery, Tonsillectomy, Tubal Ligation Additional Past Surgical History / Comment(s): CERVICAL SURGERY Past Anesthesia/Blood Transfusion Reactions: No Reported Reaction, Motion Sickness Past Psychological History: Anxiety, Depression, Panic Disorder, PTSD, Schizophrenia Smoking Status: Current every day smoker Past Alcohol Use History: Rare Past Drug Use History: Marijuana - Past Family History Brother(s) Family Medical History: Cancer Mother Family Medical History: Cancer Additional Family Medical History / Comment(s): MOTHER HAD BREAST CANCER Father History Unknown: Yes General Exam Limitations: no limitations General appearance: alert, in no apparent distress Head exam: Present: atraumatic, normocephalic Eye exam: Present: normal appearance, PERRL ENT exam: Present: normal exam Neck exam: Present: normal inspection. Absent: tenderness, meningismus Respiratory exam: Present: decreased breath sounds. Absent: respiratory distress, wheezes Cardiovascular Exam: Present: regular rate, normal rhythm GI/Abdominal exam: Present: soft. Absent: distended, tenderness, guarding Extremities exam: Present: normal inspection, normal capillary refill. Absent: pedal edema, calf tenderness Neurological exam: Present: alert, oriented X3, CN II-XII intact. Absent: motor sensory deficit Psychiatric exam: Present: normal affect, normal mood Skin exam: Present: warm, dry, intact, normal color. Absent: cyanosis, diaphoretic Course Vital Signs 06/11/20 06/11/20 11:56 12:06 Temperature 98.1 F Pulse Rate 77 Pulse Rate [ 78 [employer] ] Respiratory 18 Rate Blood Pressure 126/89 O2 Sat by Pulse 97 Oximetry EKG Findings - EKG Comments: EKG Findings:: EKG: Normal sinus rhythm, rate of 76, NE interval 158, QRS durati on 86, QTC 470, no ST segment elevation. Medical Decision Making - Medical Decision Making 54-year-old with intermittent chest pain, left-sided. Initial workup shows EKG which is sinus rhythm with no ST segment elevation, chest x-ray negative for acute cardiopulmonary disease. Patient has normal CBC, normal CMP, negative d- dimer, negative troponin. Given her risk factor she will be kept in observation for serial cardiac enzymes, telemetry, cardiology consultation. Case is discussed with Dr. Singh will admit. - Lab Data Result diagrams: 06/11/20 12:23 06/11/20 12:23 Lab Results 06/11/20 06/11/20 06/11/20 Range/Units 12:23 12:23 12:23 WBC 10.5 (3.8-10.6) k/uL RBC 5.10 (3.80-5.40) m/uL Hgb 15.5 (11.4-16.0) gm/dL Hct 47.2 H (34.0-46.0) % MCV 92.7 (80.0-100.0) fL MCH 30.4 (25.0-35.0) pg MCHC 32.8 (31.0-37.0) g/dL RDW 12.8 (11.5-15.5) % Plt Count 293 (150-450) k/uL Neutrophils % 51 % Lymphocytes % 35 % Monocytes % 5 % Eosinophils % 5 % Basophils % 1 % Neutrophils # 5.3 (1.3-7.7) k/uL Lymphocytes # 3.7 (1.0-4.8) k/uL Monocytes # 0.5 (0-1.0) k/uL Eosinophils # 0.6 (0-0.7) k/uL Basophils # 0.2 (0-0.2) k/uL PT 10.9 (9.0-12.0) sec INR 1.1 (<1.2) APTT 24.4 (22.0-30.0) sec D-Dimer 0.32 (<0.60) mg/L FEU Sodium 138 (137-145) mmol/L Potassium 4.2 (3.5-5.1) mmol/L Chloride 104 (98-107) mmol/L Carbon Dioxide 26 (22-30) mmol/L Anion Gap 8 mmol/L BUN 15 (7-17) mg/dL Creatinine 0.71 (0.52-1.04) mg/dL Est GFR (CKD-EPI)AfAm >90 (>60 ml/min/1.73 sqM) Est GFR (CKD-EPI)NonAf >90 (>60 ml/min/1.73 sqM) Glucose 94 (74-99) mg/dL Calcium 9.5 (8.4-10.2) mg/dL Magnesium 2.3 (1.6-2.3) mg/dL Total Bilirubin 0.6 (0.2-1.3) mg/dL AST 25 (14-36) U/L ALT 19 (4-34) U/L Alkaline Phosphatase 79 (38-126) U/L Troponin I (0.000-0.034) ng/mL Total Protein 7.2 (6.3-8.2) g/dL Albumin 4.3 (3.5-5.0) g/dL 06/11/20 Range/Units 12:23 WBC (3.8-10.6) k/uL RBC (3.80-5.40) m/uL Hgb (11.4-16.0) gm/dL Hct (34.0-46.0) % MCV (80.0-100.0) fL MCH (25.0-35.0) pg MCHC (31.0-37.0) g/dL RDW (11.5-15.5) % Plt Count (150-450) k/uL Neutrophils % % Lymphocytes % % Monocytes % % Eosinophils % % Basophils % % Neutrophils # (1.3-7.7) k/uL Lymphocytes # (1.0-4.8) k/uL Monocytes # (0-1.0) k/uL Eosinophils # (0-0.7) k/uL Basophils # (0-0.2) k/uL PT (9.0-12.0) sec INR (<1.2) APTT (22.0-30.0) sec D-Dimer (<0.60) mg/L FEU Sodium (137-145) mmol/L Potassium (3.5-5.1) mmol/L Chloride (98-107) mmol/L Carbon Dioxide (22-30) mmol/L Anion Gap mmol/L BUN (7-17) mg/dL Creatinine (0.52-1.04) mg/dL Est GFR (CKD-EPI)AfAm (>60 ml/min/1.73 sqM) Est GFR (CKD-EPI)NonAf (>60 ml/min/1.73 sqM) Glucose (74-99) mg/dL Calcium (8.4-10.2) mg/dL Magnesium (1.6-2.3) mg/dL Total Bilirubin (0.2-1.3) mg/dL AST (14-36) U/L ALT (4-34) U/L Alkaline Phosphatase (38-126) U/L Troponin I <0.012 (0.000-0.034) ng/mL Total Protein (6.3-8.2) g/dL Albumin (3.5-5.0) g/dL Disposition Clinical Impression: Chest pain Disposition: ADMITTED IP TO THIS [facility] Condition: Stable Is patient prescribed a controlled substance at d/c from ED?: No Referrals: Stepan Domingo DO [Primary Care Provider] - 1-2 days Time of Disposition: 13:17 Decision to Admit Reason: Admit from EC Decision Date: 06/11/20 Decision Time: 13:17
[2020-06-11 12:36] LABS: Basophils # (A) 0.2 k/uL (0-0.2); Basophils % (A) 1 %; Eosinophils # (A) 0.6 k/uL (0-0.7); Eosinophils % (A) 5 %; HCT 47.2 % (34.0-46.0); HGB 15.5 gm/dL (11.4-16.0); Lymphocytes # (A) 3.7 k/uL (1.0-4.8); Lymphocytes % (A) 35 %; MCH 30.4 pg (25.0-35.0); MCHC 32.8 g/dL (31.0-37.0); MCV 92.7 fL (80.0-100.0); Mean Platelet Volume 7.5; Monocytes # (A) 0.5 k/uL (0-1.0); Monocytes % (A) 5 %; Neutrophils # (A) 5.3 k/uL (1.3-7.7); Neutrophils % (A) 51 %; Platelet Count 293 k/uL (150-450); RDW 12.8 % (11.5-15.5); WBC 10.5 k/uL (3.8-10.6)
[2020-06-11 12:44] LABS: ALT 19 U/L (4-34); AST 25 U/L (14-36); African American GFR (CKD) >90 (>60 ml/min/1.73 sqM); Albumin 4.3 g/dL (3.5-5.0); Alkaline Phosphatase 79 U/L (38-126); Anion Gap 8 mmol/L; Blood Urea Nitrogen 15 mg/dL (7-17); Calcium 9.5 mg/dL (8.4-10.2); Carbon Dioxide 26 mmol/L (22-30); Chloride 104 mmol/L (98-107); Glucose 94 mg/dL (74-99); Magnesium 2.3 mg/dL (1.6-2.3); Non-African American GFR(CKD) >90 (>60 ml/min/1.73 sqM); Potassium 4.2 mmol/L (3.5-5.1); Sodium 138 mmol/L (137-145); Total Bilirubin 0.6 mg/dL (0.2-1.3); Total Protein 7.2 g/dL (6.3-8.2)
[2020-06-11 12:48] LABS: D-Dimer 0.32 mg/L FEU (<0.60); INR 1.1 (<1.2); Partial Thromboplastin Time 24.4 sec (22.0-30.0); Prothrombin Time 10.9 sec (9.0-12.0)
[2020-06-11] MEDS ORDERED: ASPIRIN 325 MG TAB PO STA (13:03)
--- NOTE | 2020-06-11 13:03 | XR ---
EXAMINATION TYPE: XR chest 2V DATE OF EXAM: 06/11/2020 COMPARISON: 09/24/2019 INDICATION: Chest pain TECHNIQUE: Frontal and lateral views of the chest are obtained. FINDINGS: The heart size is normal. The pulmonary vasculature is normal. The lungs are clear. IMPRESSION: 1. No acute pulmonary process.
[2020-06-11] MEDS ORDERED: NALOXONE 0.4 MG/ML 1 ML VIAL IV PRN (13:15)
[2020-06-11] MEDS ORDERED: ACETAMINOPHEN TAB 325 MG TAB PO PRN (13:15)
[2020-06-11] MEDS ORDERED: MORPHINE SULFATE 4 MG/ML SYRINGE IV PRN (13:15)
[2020-06-11] MEDS ORDERED: ARTIFICIAL TEARS-HYPROMELLOSE DROPS 15 ML BTL BOTH EYES PRN (17:47)
[2020-06-11] MEDS ORDERED: ALBUTEROL NEBULIZED 2.5 MG/3 ML INHALATION PRN (17:47)
[2020-06-11] MEDS: lisinopriL 10 MG TAB PO SCH (18:06)
[2020-06-11] MEDS ORDERED: NITROGLYCERIN SL TABS 0.4 MG TAB SUBLINGUAL PRN (18:21)
[2020-06-11] MEDS: FORMOTEROL FUMARATE 20 MCG/2 ML NEBU INHALATION SCH (20:46)
--- NOTE | 2020-06-11 20:48 | P.HPIM ---
History of Present Illness H&P Date: 06/11/20 Chief Complaint: chest pain History of presenting complaint: This is a pleasant 54-year-old patient of Dr. Abby Domingo. Chronic stable medical conditions include COPD, hypertension, fibromyalgia, depression, schizophrenia. Patient long-standing smoker. Patient been having chest pain on and off for 2 weeks. More so this morning. She woke up around 11 AM. [place] a h eavy pressure in the upper chest. For like a hockey puck stuck in there. When it lasted for at least 40 minutes and decided to come in. Has had some more episodes off and on since then. The pain did not radiate. No dizziness or lightheadedness no perspiration. Patient is because of the COPD is always short of breath and wheezing. No fever no chills. Admitted with unstable angina. Had a stress is about 4 years ago. Reportedly negative. Review of systems: GEN.: Tired EYES: None HEENT: None NECK: None RESPIRATORY: Baseline short of breath wheezing CARDIOVASCULAR: As above GASTROINTESTINAL: None GENITOURINARY: None MUSCULOSKELETAL: None LYMPHATICS: None HEMATOLOGICAL: None PSYCHIATRY: None NEUROLOGICAL: None Past medical history to include: COPD, fibromyalgia, dementia, hypertension, osteoarthritis, schizophrenia, depression Social history: Lives with her daughter. Does marijuana occasionally. Smoking for about 35 years. After about a pack a day. In the past has done-oh p.m. No alcohol use. Physical examination: VITAL SIGNS: [98.1, 77, 18, 11/07/1988, 97% on room air GENERAL: BMI 30.5, laying in bed, anxious. EYES: Pupils equal. Conjunctiva normal. HEENT: External appearance of nose and ears normal, oral cavity grossly normal. NECK: JVD not raised; masses not palpable. HEART: First and second heart sounds are normal; no edema. LUNGS: Respiratory rate increased; decreased breath sounds prolonged expiration and wheezing. ABDOMEN: Soft, nontender, liver spleen not palpable, no masses palpable. PSYCH: Alert and oriented x3; mood and affect slightly anxiousl. NEUROLOGICAL: Cranial nerves grossly intact; no facial asymmetry, power and sensation grossly intact. LYMPHATICS: No lymph nodes palpable in the axilla and neck INVESTIGATIONS, reviewed in the clinical context: White count 10.5 hemoglobin 15.5 platelets 23 potassium 4.2 creatinine 0.71 Troponin I 3 negative EKG tracing personally reviewed by me-normal sinus rhythm Chest x-ray film personally reviewed by me-hyperinflation Assessment: -Patient presented with 2 week of chest pain on and off. More so severe today. Cardiac risk factors include smoking, hypertension,. EKG is unremarkable troponins are negative. Patient need a stress test. -Acute COPD exacerbation in a current smoker -Chronic nicotine dependence cigarette smoker -Chronic fibromyalgia -Essential hypertension -Anxiety depression otherwise specified - Plan: Patient replaced and aspirin. Nitropaste. Serial cardiac enzymes in place. Resume home medications. DuoNeb. Inhaled steroids. Care was discussed with the patient. Questions answered. She'll be made nothing by mouth after midnight for possible stress test. Also order 2-D echocardiogram. Smoke cessation counseling: This was done with the patient. Nicotine patch is being given. More than 3 minutes was spent for this Past Medical History Past Medical History: Asthma, COPD, Fibromyalgia, Hypertension, Osteoarthritis (OA) Additional Past Medical History / Comment(s): GLAUCOMA History of Any Multi-Drug Resistant Organisms: None Reported Past Surgical History: Appendectomy, Breast Surgery, Tonsillectomy, Tubal Ligation Additional Past Surgical History / Comment(s): CERVICAL SURGERY Past Anesthesia/Blood Transfusion Reactions: No Reported Reaction, Motion Sickness Smoking Status: Current every day smoker - Past Family History Brother(s) Family Medical History: Cancer Mother Family Medical History: Cancer Additional Family Medical History / Comment(s): MOTHER HAD BREAST CANCER Father History Unknown: Yes Medications and Allergies Home Medications Medication Instructions Recorded Confirmed Type Albuterol Inhaler [Ventolin Hfa 1 puff INHALATION RT-Q6H PRN 06/11/20 06/11/20 History Inhaler] Azelastine HCl [Optivar 0.05% 1 drop BOTH EYES BID 06/11/20 06/11/20 History Ophth Soln] Carboxymethylcellulose Sodium 1 drop BOTH EYES Q2H PRN 06/11/20 06/11/20 History [Refresh Tears] DULoxetine HCL [Cymbalta] 30 mg PO DAILY 06/11/20 06/11/20 History Lisinopril [Prinivil] 10 mg PO DAILY 06/11/20 06/11/20 History Salmeterol 50 mcg [Serevent Diskus] 1 puff INHALATION RT-Q12H 06/11/20 06/11/20 History Umeclidinium [place] [Incruse 1 puff INHALATION RT-DAILY 06/11/20 06/11/20 History Ellipta] Allergies Allergy/AdvReac Type Severity Reaction Status Date / Time Penicillins Allergy Severe Anaphylaxis Verified 06/11/20 14:54 Physical Exam Vitals: Vital Signs Temp Pulse Pulse Resp BP BP Pulse Ox 06/11/20 18:39 76 153/70 06/11/20 18:25 72 20 147/89 95 06/11/20 15:00 98 F 69 20 154/81 98 06/11/20 14:19 97.7 F 62 16 169/93 99 06/11/20 13:17 64 18 164/91 98 06/11/20 12:06 78 06/11/20 11:56 98.1 F 77 18 126/89 97 Intake and Output 06/11/20 06/11/20 06/11/20 06:59 14:59 22:59 Intake Total 240 Balance 240 Intake: Oral 240 Other: Voiding Method Toilet Weight 70.76 kg Results CBC & Chem 7: 06/11/20 12:23 06/11/20 12:23 Labs: Abnormal Lab Results - Last 24 Hours (Table) 06/11/20 Range/Units 12:23 Hct 47.2 H (34.0-46.0) % Thrombosis Risk Factor Assmnt - Choose All That Apply Each Factor Represents 1 point: Age 41-60 years Other Risk Factors: No Thrombosis Risk Factor Assessment Total Risk Factor Score: 1 Thrombosis Risk Factor Assessment Level: Low Risk
[2020-06-11] MEDS: BUDESONIDE 1 MG/2 ML NEBU INHALATION SCH (21:14)
[2020-06-11] MEDS: ENOXAPARIN 40 MG/0.4 ML SYRINGE SQ SCH (21:55)
[2020-06-11] MEDS: NITROGLYCERIN OINT 1 INCH/GM PACKET TOPICAL SCH (21:55)
[2020-06-11] MEDS: NICOTINE 21MG/24HR PATCH TRANSDERM SCH (22:00)
[2020-06-11] MEDS: KETOTIFEN 0.025% OPHTH DROPS 5 ML BTL BOTH EYES SCH (22:00)
[2020-06-11 22:11] VITALS: RESP 16
[2020-06-12] MEDS: NITROGLYCERIN OINT 1 INCH/GM PACKET TOPICAL SCH ×2 (00:25→12:56)
[2020-06-12] MEDS: BUDESONIDE 1 MG/2 ML NEBU INHALATION SCH (07:54)
[2020-06-12] MEDS: FORMOTEROL FUMARATE 20 MCG/2 ML NEBU INHALATION SCH (07:54)
[2020-06-12] MEDS: IPRATROPIUM-ALBUTEROL 3 ML NEB INHALATION SCH ×3 (07:55→15:42)
[2020-06-12] MEDS ORDERED: IPRATROPIUM 0.5 MG/2.5 ML NEBU INHALATION SCH (08:00)
[2020-06-12] MEDS ORDERED: REGADENOSON 0.4 MG/5 ML SYRINGE IV ONE (08:03)
[2020-06-12] MEDS ORDERED: AMINOPHYLLINE 500 MG/20 ML VIAL IV PRN (08:03)
[2020-06-12] MEDS ORDERED: CAFFEINE CITRATE 60 MG/3 ML VIAL IV PRN (08:03)
[2020-06-12 08:13] VITALS: TEMP 98.1
[2020-06-12] MEDS: KETOTIFEN 0.025% OPHTH DROPS 5 ML BTL BOTH EYES SCH (08:46)
[2020-06-12] MEDS: ENOXAPARIN 40 MG/0.4 ML SYRINGE SQ SCH (08:46)
[2020-06-12] MEDS: lisinopriL 10 MG TAB PO SCH (08:46)
[2020-06-12] MEDS: NICOTINE 21MG/24HR PATCH TRANSDERM SCH (08:47)
[2020-06-12] MEDS ORDERED: DULoxetine HCL 30 MG CAPSULE.DR PO SCH (09:00)
[2020-06-12] MEDS ORDERED: ASPIRIN 81 MG PO SCH (09:00)
--- NOTE | 2020-06-12 09:53 | P.CRDCN ---
History of Present Illness Consult date: 06/12/20 Reason for Consult (text): Chest pain History of present illness: HISTORY OF PRESENTING ILLNESS This is a pleasant 54-year-old female with history of COPD, hypertension, fibromyalgia, depression and tobacco abuse who presents for chest pain over the last 2 weeks. She states it feels like a hockey puck size which is on her chest. It feels like a pressure and was over 10 out of 10 pain when it started. It has been off and on for last 2 weeks. Not associated with any exertion. She was given nitroglycerin in the emergency department and believes this improved it. She does see a revenue analyst from [place] however believes it has been a few years since she had a stress test. She denies any history of CAD, stents or heart catheterization. She denies any associated shortness breath, nausea, diaphoresis or lightheadedness. She does admit to chronically being short of breath from her COPD. This has been unchanged. DIAGNOSTICS EKG reveals sinus rhythm, no ST-T wave abnormalities.. Chest xray no acute process. Laboratory reviewed, white blood cell 10.5, hemoglobin 15.5, platelets 293, creatinine 0.71. Troponin negative 3. Current cardiac medications include aspirin 81 mg daily, lisinopril 10 mg daily, nitroglycerin patch. REVIEW OF SYSTEMS At the time of my exam: CONSTITUTIONAL: Denies fever or chills. CARDIOVASCULAR: +chest pain, + chronic shortness of breath, denies orthopnea, PND or palpitations. RESPIRATORY: Denies cough. GASTROINTESTINAL: Denies abdominal pain, diarrhea, constipation, nausea or vomiting. MUSCULOSKELETAL: Denies myalgias. NEUROLOGIC: Denies numbness, tingling or weakness. ENDOCRINE: Denies fatigue, weight change, polydipsia or polyurina. GENITOURINARY: Denies burning, hematuria or urgency with micturation. HEMATOLOGIC: Denies history of anemia or bleeding. PHYSICAL EXAMINATION Blood pressure 160/90 heart rate 66 afebrile and maintaining oxygen saturation on 96% on room air. CONSTITUTIONAL: No apparent distress. HEENT: Head is normocephalic. Pupils are equal, round. Sclerae anicteric. Mucous membranes of the mouth are moist. No JVD. No carotid bruit. CHEST EXAMINATION: Lungs are clear to auscultation. No chest wall tenderness is noted on palpation or with deep breathing. HEART EXAMINATION: Regular rate and rhythm. S1, S2 heard. No murmurs, gallops or rub. ABDOMEN: Soft, nontender. Positive bowel sounds. EXTREMITIES: 2+ peripheral pulses, no lower extremity edema and no calf tenderness. NEUROLOGIC EXAMINATION: Patient is awake, alert and oriented x3. ASSESSMENT 1. Atypical chest pain, troponin negative 3 however chest pain was improved with nitroglycerin. We will check a nuclear stress test and echo to rule out underlying coronary artery disease and to evaluate for any structural heart disease. 2. Tobacco abuse 3. Essential hypertension on home lisinopril 10 mg daily 4. Dyspnea on exertion, chronic which appears related to her COPD PLAN We will check a 2-D echo to rule out underlying structural heart disease as well as a nuclear stress test to rule out significant coronary artery disease. Pain overall appears atypical however some improvement with nitroglycerin. Advised tobacco cessation. Continue lisinopril 10 mg daily at this time and further titration may be managed outpatient. If stress test and echo are normal, patient may be discharged with outpatient follow-up. Past Medical History Past Medical History: Asthma, COPD, Fibromyalgia, Hypertension, Osteoarthritis (OA) Additional Past Medical History / Comment(s): GLAUCOMA History of Any Multi-Drug Resistant Organisms: None Reported Past Surgical History: Appendectomy, Breast Surgery, Tonsillectomy, Tubal Ligation Additional Past Surgical History / Comment(s): CERVICAL SURGERY Past Anesthesia/Blood Transfusion Reactions: No Reported Reaction, Motion Sickness Smoking Status: Current every day smoker - Past Family History Brother(s) Family Medical History: Cancer Mother Family Medical History: Cancer Additional Family Medical History / Comment(s): MOTHER HAD BREAST CANCER Father History Unknown: Yes Medications and Allergies Home Medications Medication Instructions Recorded Confirmed Type Albuterol Inhaler [Ventolin Hfa 1 puff INHALATION RT-Q6H PRN 06/11/20 06/11/20 History Inhaler] Azelastine HCl [Optivar 0.05% 1 drop BOTH EYES BID 06/11/20 06/11/20 History Ophth Soln] Carboxymethylcellulose Sodium 1 drop BOTH EYES Q2H PRN 06/11/20 06/11/20 History [Refresh Tears] DULoxetine HCL [Cymbalta] 30 mg PO DAILY 06/11/20 06/11/20 History Lisinopril [Prinivil] 10 mg PO DAILY 06/11/20 06/11/20 History Salmeterol 50 mcg [Serevent Diskus] 1 puff INHALATION RT-Q12H 06/11/20 06/11/20 History Umeclidinium [place] [Incruse 1 puff INHALATION RT-DAILY 06/11/20 06/11/20 History Ellipta] Allergies Allergy/AdvReac Type Severity Reaction Status Date / Time Penicillins Allergy Severe Anaphylaxis Verified 06/11/20 14:54 Physical Exam Vitals: Vital Signs Temp Pulse Pulse Resp BP BP Pulse Ox 06/12/20 08:13 98.1 F 66 16 160/90 96 06/12/20 04:05 98.0 F 74 16 103/67 98 06/11/20 22:08 98.1 F 82 16 132/76 95 06/11/20 18:39 76 153/70 06/11/20 18:25 72 20 147/89 95 06/11/20 15:00 98 F 69 20 154/81 98 06/11/20 14:19 97.7 F 62 16 169/93 99 06/11/20 13:17 64 18 164/91 98 06/11/20 12:06 78 06/11/20 11:56 98.1 F 77 18 126/89 97 Intake and Output 06/11/20 06/12/20 06/12/20 22:59 06:59 14:59 Output Total 300 Balance -300 Output: Urine 300 Other: Voiding Method Toilet Toilet Toilet # Voids 2 Results 06/11/20 12:23 06/11/20 12:23 Cardiac Enzymes 06/11/20 06/11/20 06/11/20 Range/Units 12:23 12:23 14:19 AST 25 (14-36) U/L Troponin I <0.012 <0.012 (0.000-0.034) ng/mL 06/11/20 Range/Units 18:11 AST (14-36) U/L Troponin I <0.012 (0.000-0.034) ng/mL Coagulation 06/11/20 Range/Units 12:23 PT 10.9 (9.0-12.0) sec APTT 24.4 (22.0-30.0) sec CBC 06/11/20 Range/Units 12:23 WBC 10.5 (3.8-10.6) k/uL RBC 5.10 (3.80-5.40) m/uL Hgb 15.5 (11.4-16.0) gm/dL Hct 47.2 H (34.0-46.0) % Plt Count 293 (150-450) k/uL Comprehensive Metabolic Panel 06/11/20 Range/Units 12:23 Sodium 138 (137-145) mmol/L Potassium 4.2 (3.5-5.1) mmol/L Chloride 104 (98-107) mmol/L Carbon Dioxide 26 (22-30) mmol/L BUN 15 (7-17) mg/dL Creatinine 0.71 (0.52-1.04) mg/dL Glucose 94 (74-99) mg/dL Calcium 9.5 (8.4-10.2) mg/dL AST 25 (14-36) U/L ALT 19 (4-34) U/L Alkaline Phosphatase 79 (38-126) U/L Total Protein 7.2 (6.3-8.2) g/dL Albumin 4.3 (3.5-5.0) g/dL Current Medications Generic Name Dose Route Start Last Admin Trade Name Freq PRN Reason Stop Dose Admin Acetaminophen 650 mg 06/11/20 13:15 Tylenol Tab PO Q6HR PRN Mild Pain or Fever > 100.5 Albuterol Sulfate 2.5 mg 06/11/20 17:47 Ventolin Nebulized INHALATION RT-Q6H PRN Shortness Of Breath Albuterol/Ipratropium 3 ml 06/12/20 08:00 06/12/20 07:55 Duoneb 0.5 Mg-3 Mg/3 Ml Soln INHALATION Not Given RT-QID ON LICENSE OF [facility] Aminophylline 100 mg 06/12/20 08:03 Aminophylline IV ONCE PRN Patient Response Artificial Tears 1 drops 06/11/20 17:47 Artificial Tear Drops BOTH EYES Q2H PRN DRY EYES Aspirin 81 mg 06/12/20 09:00 06/12/20 08:46 Aspirin PO 81 mg DAILY JUAN Administration Budesonide 1 mg 06/11/20 20:48 06/12/20 07:54 Pulmicort INHALATION Not Given RT-BID ON LICENSE OF [facility] Caffeine Citrate 60 mg 06/12/20 08:03 Cafcit Inj IV 06/12/20 23:00 ONCE PRN Patient Response Duloxetine HCl 30 mg 06/12/20 09:00 Cymbalta PO DAILY ON LICENSE OF [facility] Enoxaparin Sodium 40 mg 06/11/20 20:45 06/12/20 08:46 Lovenox SQ Not Given DAILY ON LICENSE OF [facility] Formoterol Fumarate 20 mcg 06/11/20 20:00 06/12/20 07:54 Perforomist INHALATION Not Given RT-BID ON LICENSE OF [facility] Ketotifen Fumarate 1 drops 06/11/20 21:00 06/12/20 08:46 Zaditor BOTH EYES 1 drops BID ON LICENSE OF [facility] Administration Lisinopril 10 mg 06/11/20 18:00 06/12/20 08:46 Zestril PO 10 mg DAILY ON LICENSE OF [facility] Administration Morphine Sulfate 4 mg 06/11/20 13:15 Morphine Sulfate (Inj) IV Q4HR PRN Severe Pain Naloxone HCl 0.2 mg 06/11/20 13:15 Narcan IV Q2M PRN Opioid Reversal Nicotine 1 patch 06/11/20 20:45 06/12/20 08:47 Habitrol 21mg/24hr Patch TRANSDERM 1 patch DAILY ON LICENSE OF [facility] Administration Nitroglycerin 0.4 mg 06/11/20 18:21 06/11/20 18:32 Nitrostat SUBLINGUAL 0.4 mg Q5M PRN Administration Chest Pain Nitroglycerin 0.5 inch 06/11/20 20:49 06/12/20 00:25 Nitro-Bid Oint TOPICAL Not Given Q8HR ON LICENSE OF [facility] Intake and Output 06/11/20 06/12/20 06/12/20 22:59 06:59 14:59 Output Total 300 Balance -300 Output: Urine 300 Other: Voiding Method Toilet Toilet Toilet # Voids 2 06/11/20 12:23 06/11/20 12:23
--- NOTE | 2020-06-12 12:37 | P.STRESS ---
- Stress Test Note Stress Test Results/Findings: Exam Performed: NM stress lexiscan cardiolite Exam Date: 06/12/20 Reason for Exam: CP Height: 5 ft Weight: 70.76 kg Protocol: LEXISCAN CARDIOLITE Stage: NA Duration of Exercise: NA Resting Heart Rate: 70 Resting Blood Pressure: 180/88 Maximum Achieved Heart Rate: 84 Maximum Achieved Blood Pressure: 180/88 85% PMHR: 143 100% PMHR: 168 METS: NA Technologist Comment: Stress Test Results/Findings: At baseline, EKG normal sinus rhythm with a rate of 70 bpm, normal axis, T-wave inversions in V1 and V2. There was an occasional PVC. At peak infusion there is a nondiagnostic EKG response to Lexiscan infusion with no significant change from baseline EKG. Conclusions: 1. Nondiagnostic EKG response to Lexiscan infusion. 2. Nuclear imaging to be reported separately.
--- NOTE | 2020-06-12 13:00 | ECHOF ---
Referral Reason:smoker, chest pain MEASUREMENTS -------- HEIGHT: 152.4 cm WEIGHT: 70.8 kg BP: 103/67 RVIDd: 2.4 cm (< 3.3) IVSd: 0.9 cm (0.6 - 1.1) LVIDd: 4.6 cm (3.9 - 5.3) LVPWd: 1.0 cm (0.6 - 1.1) IVSs: 1.5 cm LVIDs: 3.2 cm LVPWs: 1.3 cm LA Diam: 2.9 cm (2.7 - 3.8) Ao Diam: 2.5 cm (2.0 - 3.7) AV Cusp: 1.5 cm (1.5 - 2.6) MV EXCURSION: 16.095 mm (> 18.000) MV EF SLOPE: 96 mm/s (70 - 150) EPSS: 0.2 cm MV E Luis: 0.51 m/s MV DecT: 257 ms MV A Luis: 0.51 m/s MV E/A Ratio: 1.00 RAP: 5.00 mmHg RVSP: 28.15 mmHg FINDINGS -------- Sinus rhythm. This was a technically good study. LV size, wall thickness and systolic function are normal, with an EF greater than 55%. The left angel luis tricular size is normal. The right ventricle is normal in size. The left atrial size is normal. The right atrial size is normal. The aortic valve is trileaflet, and appears structurally normal. No aortic stenosis or regurgitation. Mild mitral regurgitation is present. Mild tricuspid regurgitation present. Right ventricular systolic pressure is normal at < 35 mmHg. There is no pulmonic regurgitation present. The aortic root size is normal. There is no pericardial effusion. CONCLUSIONS -------- 1. LV size, wall thickness and systolic function are normal, with an EF greater than 55%. 2. The left ventricular size is normal. 3. The right ventricle is normal in size. 4. The left atrial size is normal. 5. The right atrial size is normal. 6. Mild mitral regurgitation is present. 7. Mild tricuspid regurgitation present. RELIGIOUS EDUCATION TEACHER: Winifred Leslie RDCS
--- NOTE | 2020-06-12 15:35 | NM ---
EXAMINATION TYPE: NM stress lexiscan cardiolite DATE OF EXAM: 06/12/2020 COMPARISON: Prior exam 03/23/2015 HISTORY: Chest pain TECHNIQUE: After the intravenous administration of 9.7 mCi Tc 99m Sestamibi - Cardiolite resting SPE CT images acquired 60 minutes post injection. The patient received 0.4mg Lexiscan, 25.5 mCi Tc 99m Sestamibi - Stress images obtained [address] injection FINDINGS: Review of stress and rest SPECT images demonstrates decreased uptake along the cardiac apex on stress and rest images. Cardiac ejection fraction is angulated at 57%. IMPRESSION: No scintigraphic evidence for reversible ischemia. 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
[2020-06-12 15:43] VITALS: BP 115/65; PULSE 68
--- NOTE | 2020-06-12 21:34 | P.DS ---
Providers Date of admission: 06/11/20 13:15 Expected date of discharge: 06/12/20 Attending physician: Eriberto Singh Consults: 06/11/20 13:15 Consult Physician Routine Consulting Provider: Brian Lombardo Consult Reason/Comments: CP Do you want consulting provider notified?: Yes Primary care physician: Stepan Jose L [place] Hospital Course: Chief Complaint: chest pain History of presenting complaint: This is a pleasant 54-year-old patient of Dr. Abby Domingo. Chronic stable medical conditions include COPD, hypertension, fibromyalgia, depression, alejandro izophrenia. Patient long-standing smoker. Patient been having chest pain on and off for 2 weeks. More so this morning. She woke up around 11 AM. [place] a heavy pressure in the upper chest. For like a hockey puck stuck in there. When it lasted for at least 40 minutes and decided to come in. Has had some more episodes off and on since then. The pain did not radiate. No dizziness or lightheadedness no perspiration. Patient is because of the COPD is always short of breath and wheezing. No fever no chills. Admitted with unstable angina. Had a stress is about 4 years ago. Reportedly negative. Today-troponins were negative. 2-D echo showed EF of 55%. Nuclear stress test was negative. Cleared by cardiology. Also had COPD exacerbation. Treated with bronchodilators. Inhaled steroids. Counseled about smoking. Consultation: Dr. Hull from cardiology Physical examination: VITAL SIGNS: 98.1, 68, 16, 115/65, 96% room air GENERAL: Sitting up, comfortable. EYES: Pupils equal. Conjunctiva normal. HEENT: External appearance of nose and ears normal, oral cavity grossly normal. NECK: JVD not raised; masses not palpable. HEART: First and second heart sounds are normal; no edema. LUNGS: Respiratory rate increased; decreased breath sounds prolonged expiration and wheezing. ABDOMEN: Soft, nontender, liver spleen not palpable, no masses palpable. PSYCH: Alert and oriented x3; mood and affect slightly anxiousl. INVESTIGATIONS, reviewed in the clinical context: White count 10.5 hemoglobin 15.5 platelets 23 potassium 4.2 creatinine 0.71 Troponin I 3 negative EKG tracing personally reviewed by me-normal sinus rhythm Chest x-ray film personally reviewed by me-hyperinflation 2-D echocardiogram-EF 55% Lexiscan nuclear stress test-negative ischemia Assessment: -Anterior chest wall pain. Possibly muscular schedule. -Acute COPD exacerbation in a current smoker -Chronic nicotine dependence cigarette smoker -Chronic fibromyalgia -Essential hypertension -Anxiety depression otherwise specified - Disposition: Home Patient Condition at Discharge: Stable Plan - Discharge Summary Discharge Rx Participant: No New Discharge Prescriptions: New Aspirin 81 mg PO DAILY chew Nicotine 21Mg/24Hr Patch [Habitrol] 1 patch TRANSDERM DAILY #14 patch Budesonide [Pulmicort] 1 mg INHALATION RT-BID ml Continue Albuterol Inhaler [Ventolin Hfa Inhaler] 1 puff INHALATION RT-Q6H PRN PRN Reason: Shortness Of Breath Umeclidinium [place] [Incruse Ellipta] 1 puff INHALATION RT-DAILY Salmeterol 50 mcg [Serevent Diskus] 1 puff INHALATION RT-Q12H Lisinopril [Prinivil] 10 mg PO DAILY DULoxetine HCL [Cymbalta] 30 mg PO DAILY Azelastine HCl [Optivar 0.05% Ophth Soln] 1 drop BOTH EYES BID Carboxymethylcellulose Sodium [Refresh Tears] 1 drop BOTH EYES Q2H PRN PRN Reason: DRY EYES Discharge Medication List Albuterol Inhaler [Ventolin Hfa Inhaler] 1 puff INHALATION RT-Q6H PRN 06/11/20 [History] Azelastine HCl [Optivar 0.05% Ophth Soln] 1 drop BOTH EYES BID 06/11/20 [History] Carboxymethylcellulose Sodium [Refresh Tears] 1 drop BOTH EYES Q2H PRN 06/11/20 [History] DULoxetine HCL [Cymbalta] 30 mg PO DAILY 06/11/20 [History] Lisinopril [Prinivil] 10 mg PO DAILY 06/11/20 [History] Salmeterol 50 mcg [Serevent Diskus] 1 puff INHALATION RT-Q12H 06/11/20 [History] Umeclidinium [place] [Incruse Ellipta] 1 puff INHALATION RT-DAILY 06/11/20 [History] Aspirin 81 mg PO DAILY chew 06/12/20 [Rx] Budesonide [Pulmicort] 1 mg INHALATION RT-BID ml 06/12/20 [Rx] Nicotine 21Mg/24Hr Patch [Habitrol] 1 patch TRANSDERM DAILY #14 patch 06/12/20 [Rx] Follow up Appointment(s)/Referral(s): Alfredo Hull DO [STAFF PHYSICIAN] - 2 Weeks ([facility] will call you to schedule appointments.) Stepan Domingo DO [Primary Care Provider] - 06/16/20 11:30 am Patient Instructions/Handouts: Chest Pain (GEN), How to Stop Smoking (DC)
== END 2020-06-12 18:13 | disposition home or self-care (01) ==
LOC: EC 11:53 → 3NCARDOBS 13:15
PROVIDERS: ADMIT Hospitalist; ATTEND Hospitalist
DX: R07.89 Other chest pain (principal); J44.1 Chronic obstructive pulmonary disease with (acute) exacerbation; F17.210 Nicotine dependence, cigarettes, uncomplicated; M79.7 Fibromyalgia; F20.9 Schizophrenia, unspecified; F41.0 Panic disorder [episodic paroxysmal anxiety]; F41.8 Other specified anxiety disorders; F43.10 Post-traumatic stress disorder, unspecified; I10 Essential (primary) hypertension; Z79.82 Long term (current) use of aspirin; Z79.899 Other long term (current) drug therapy; Z80.3 Family history of malignant neoplasm of breast
CPT/HCPCS: 93005 ×2; 99285; 36415; 93017; 93306; 85379; 80053; 83735; 84484; 85025; 85610; 85730; 71046; 78452; G0378 ×2; A9500; S4990 ×2; J2785

== ENCOUNTER 2020-10-31 17:23 | Inpatient (IN) | payer OTHER ==
[2020-10-31] MEDS ORDERED: NITROGLYCERIN OINT 1 INCH/GM PACKET TOPICAL STA (17:29)
[2020-10-31] MEDS ORDERED: ASPIRIN 81 MG PO STA (17:29)
--- NOTE | 2020-10-31 17:35 | ED ---
General Adult HPI - General Chief complaint: Chest Pain Stated complaint: Chest pain Time Seen by Provider: 10/31/20 17:23 Source: patient, EMS, RN notes reviewed Mode of arrival: EMS Limitations: no limitations - History of Present Illness Initial comments: Patient is a pleasant 54-year-old female presenting to the emergency Department with complaints of chest discomfort. Onset of symptoms was yesterday, waxing and waning. Discomfort was severe prior to arrival however now is near resolved rated 1/10. Discomfort was tight however now feels more like like pressure. No radiation. Patient did have diaphoresis and nausea earlier. Minimal dyspnea. Patient states she did have similar symptoms a few months ago however did not follow-up for stress test. No leg pain or leg swelling. No history of previous known cardiac disease. - Related Data Home Medications Medication Instructions Recorded Confirmed Albuterol Inhaler [Ventolin Hfa 1 puff INHALATION RT-Q4H PRN 06/11/20 10/31/20 Inhaler] Carboxymethylcellulose Sodium 1 drop BOTH EYES Q2H PRN 06/11/20 10/31/20 [Refresh Tears] Lisinopril [Prinivil] 10 mg PO DAILY 06/11/20 10/31/20 Salmeterol 50 mcg [Serevent Diskus] 1 puff INHALATION RT-Q12H PRN 06/11/20 10/31/20 Umeclidinium [place] [Incruse 1 puff INHALATION RT-DAILY PRN 06/11/20 10/31/20 Ellipta] Allergy Sinus Tabs 1 tab PO Q6H PRN 10/31/20 10/31/20 Ibuprofen [Motrin] 800 mg PO Q8H PRN 10/31/20 10/31/20 Allergies Allergy/AdvReac Type Severity Reaction Status Date / Time Penicillins Allergy Severe Anaphylaxis Verified 10/31/20 17:33 Review of Systems ROS Statement: Those systems with pertinent positive or pertinent negative responses have been documented in the HPI. ROS Other: All systems not noted in ROS Statement are negative. Constitutional: Denies: fever Eyes: Denies: eye pain ENT: Denies: ear pain Respiratory: Reports: as per HPI. Denies: cough Cardiovascular: Reports: as per HPI, chest pain Endocrine: Denies: fatigue Gastrointestinal: Denies: abdominal pain Genitourinary: Denies: dysuria Musculoskeletal: Denies: back pain Skin: Denies: rash Neurological: Denies: weakness Past Medical History Past Medical History: Asthma, COPD, Fibromyalgia, Hypertension, Osteoarthritis (OA) Additional Past Medical History / Comment(s): GLAUCOMA History of Any Multi-Drug Resistant Organisms: None Reported Past Surgical History: Appendectomy, Breast Surgery, Tonsillectomy, Tubal Ligation Additional Past Surgical History / Comment(s): CERVICAL SURGERY Past Anesthesia/Blood Transfusion Reactions: No Reported Reaction, Motion Sickness Past Psychological History: Anxiety, Depression, Panic Disorder, PTSD, Schizophrenia Smoking Status: Current every day smoker Past Alcohol Use History: Occasional Past Drug Use History: Marijuana - Past Family History Brother(s) Family Medical History: Cancer Mother Family Medical History: Cancer Additional Family Medical History / Comment(s): MOTHER HAD BREAST CANCER Father History Unknown: Yes General Exam Limitations: no limitations General appearance: alert, in no apparent distress Head exam: Present: normocephalic Eye exam: Present: normal appearance, PERRL Neck exam: Present: normal inspection Respiratory exam: Present: normal lung sounds bilaterally. Absent: chest wall tenderness Cardiovascular Exam: Present: regular rate, normal rhythm Expanded Peripheral pulses: 2+: Radial (R), Radial (L), Dorsalis Pedis (R), Dorsalis Pedis (L) GI/Abdominal exam: Present: soft. Absent: tenderness Extremities exam: Present: normal inspection. Absent: pedal edema, calf tenderness Neurological exam: Present: alert Psychiatric exam: Present: normal affect, normal mood Skin exam: Present: normal color Course Vital Signs 10/31/20 17:24 Temperature 98.8 F Pulse Rate 80 Respiratory 16 Rate Blood Pressure 199/121 O2 Sat by Pulse 100 Oximetry - Reevaluation(s) Reevaluation #1: 10/31/20 17:35 Case was discussed with Dr. Hull as soon as EKG was reviewed. STEMI alert was called. 10/31/20 17:43 Patient was reevaluated and updated. Dr. Arias has been paged for admission, covering for Dr. Singh, who admits for Dr. Domingo. 10/31/20 17:51 Right-sided EKG shows normal sinus rhythm with a rate of 70. MT 168. QRS 100. QT 380. QTC 410. Normal axis. Inferior ST elevation. No ST elevation in V4. 10/31/20 18:14 Patient has gone to [facility]. Case was discussed with Dr. Owens, who will admit. EKG Findings - EKG Comments: EKG Findings:: Normal sinus rhythm with rate of 72. MT 152. QRS 92. QT 396. QTc 433. Normal axis. Normal QRS. Inferior ST elevation. Medical Decision Making - Lab Data Result diagrams: 10/31/20 17:35 10/31/20 17:35 Lab Results 10/31/20 10/31/20 10/31/20 Range/Units 17:35 17:35 17:35 WBC 12.2 H (3.8-10.6) k/uL RBC 5.08 (3.80-5.40) m/uL Hgb 16.3 H (11.4-16.0) gm/dL Hct 47.1 H (34.0-46.0) % MCV 92.6 (80.0-100.0) fL MCH 32.1 (25.0-35.0) pg MCHC 34.6 (31.0-37.0) g/dL RDW 12.6 (11.5-15.5) % Plt Count 237 (150-450) k/uL MPV 7.3 Neutrophils % 50 % Lymphocytes % 38 % Monocytes % 5 % Eosinophils % 4 % Basophils % 1 % Neutrophils # 6.2 (1.3-7.7) k/uL Lymphocytes # 4.6 (1.0-4.8) k/uL Monocytes # 0.6 (0-1.0) k/uL Eosinophils # 0.5 (0-0.7) k/uL Basophils # 0.1 (0-0.2) k/uL PT 10.8 (9.0-12.0) sec INR 1.0 (<1.2) APTT 21.1 L (22.0-30.0) sec Sodium 139 (137-145) mmol/L Potassium 4.0 (3.5-5.1) mmol/L Chloride 104 (98-107) mmol/L Carbon Dioxide 29 (22-30) mmol/L Anion Gap 6 mmol/L BUN 18 H (7-17) mg/dL Creatinine 0.80 (0.52-1.04) mg/dL Est GFR (CKD-EPI)AfAm >90 (>60 ml/min/1.73 sqM) Est GFR (CKD-EPI)NonAf 85 (>60 ml/min/1.73 sqM) Glucose 115 H (74-99) mg/dL Calcium 10.0 (8.4-10.2) mg/dL Magnesium 2.1 (1.6-2.3) mg/dL Total Bilirubin 0.4 (0.2-1.3) mg/dL AST 28 (14-36) U/L ALT 21 (4-34) U/L Alkaline Phosphatase 71 (38-126) U/L Total Protein 7.7 (6.3-8.2) g/dL Albumin 4.5 (3.5-5.0) g/dL - Radiology Data Radiology results: image reviewed (Chest x-ray shows no acute process) Critical Care Time Critical Care Time: Yes Total Critical Care Time: 31 Disposition Clinical Impression: ST elevation myocardial infarction (STEMI) Disposition: ADMITTED IP TO THIS HOSP Is patient prescribed a controlled substance at d/c from ED?: No Decision Time: 18:15
[2020-10-31] MEDS ORDERED: HEPARIN SODIUM,PORCINE 5,000 UNIT/ML 1 ML VIAL IV ONE (17:39)
[2020-10-31] MEDS ORDERED: HEPARIN SODIUM,PORCINE 5,000 UNIT/ML 1 ML VIAL IV PRN (17:39)
[2020-10-31] MEDS ORDERED: ATORVASTATIN 40 MG TAB PO STA (17:39)
[2020-10-31] MEDS ORDERED: VERAPAMIL 2.5 MG/ML 2 ML AMP ONE (17:43)
[2020-10-31] MEDS ORDERED: HEPARIN SODIUM 1,000 UN/ML (10ML VL) ONE (17:43)
[2020-10-31] MEDS ORDERED: LIDOCAINE 1% INJ 10MG/ML (20 ML MDV) ONE (17:43)
--- NOTE | 2020-10-31 17:47 | XR ---
EXAMINATION TYPE: XR chest 1V portable DATE OF EXAM: 10/31/2020 COMPARISON: 06/11/2020 HISTORY: Left side chest pain TECHNIQUE: FINDINGS: Heart and mediastinum are normal. Lungs are clear. Diaphragm is normal. Bony thorax is inta ct. There are chest leads. There is some linear density over the right lung that apparently is chest leads. IMPRESSION: No active cardiopulmonary disease. Normal heart. No change.
[2020-10-31 17:48] LABS: Basophils # (A) 0.1 k/uL (0-0.2); Basophils % (A) 1 %; Eosinophils # (A) 0.5 k/uL (0-0.7); Eosinophils % (A) 4 %; HCT 47.1 % (34.0-46.0); HGB 16.3 gm/dL (11.4-16.0); Lymphocytes # (A) 4.6 k/uL (1.0-4.8); Lymphocytes % (A) 38 %; MCH 32.1 pg (25.0-35.0); MCHC 34.6 g/dL (31.0-37.0); MCV 92.6 fL (80.0-100.0); Mean Platelet Volume 7.3; Monocytes # (A) 0.6 k/uL (0-1.0); Monocytes % (A) 5 %; Neutrophils # (A) 6.2 k/uL (1.3-7.7); Neutrophils % (A) 50 %; Platelet Count 237 k/uL (150-450); RBC 5.08 m/uL (3.80-5.40); RDW 12.6 % (11.5-15.5); WBC 12.2 k/uL (3.8-10.6)
[2020-10-31] MEDS: HEPARIN SOD,PORK IN 0.45% NACL 25,000 UNIT in 0.45% NACL 1 250ML.BAG IV SCH ×2 (17:49→21:18)
[2020-10-31] MEDS ORDERED: NITROGLYCERIN SL TABS 0.4 MG TAB SUBLINGUAL STA (17:52)
--- NOTE | 2020-10-31 18:00 | P.CRDCN ---
History of Present Illness History of present illness: HISTORY OF PRESENTING ILLNESS This is a pleasant 54-year-old female past medical history significant for COPD, hypertension, fibromyalgia, depression and tobacco abuse. Patient had a recent admission in May where she had chest pain and had normal troponins at the time with stress test showing a questionable fixed apical defect and therefore was discharged home. Patient has been having chest discomfort off and on since yesterday and feels like a tightness and pressure. She admits to associated diaphoresis and nausea and some shortness breath. DIAGNOSTICS EKG reveals normal sinus rhythm, approximately [address] elevation in the inferior leads with some mild ST depression in aVL and V4 through V6. Chest xray no acute process Home medications include: Lisinopril 10 mg daily REVIEW OF SYSTEMS At the time of my exam: CONSTITUTIONAL: Denies fever or chills. CARDIOVASCULAR: +chest pain, +shortness of breath, orthopnea, PND or palpitations. RESPIRATORY: Denies cough. GASTROINTESTINAL: Denies abdominal pain, diarrhea, constipation, +nausea, +vomiting. MUSCULOSKELETAL: Denies myalgias. NEUROLOGIC: Denies numbness, tingling or weakness. ENDOCRINE: Denies fatigue, weight change, polydipsia or polyurina. GENITOURINARY: Denies burning, hematuria or urgency with micturation. HEMATOLOGIC: Denies history of anemia or bleeding. PHYSICAL EXAMINATION Blood pressure blood pressure 199/121 heart rate 80 afebrile and maintaining oxygen saturation on 2 L nasal cannula. CONSTITUTIONAL: Mildly uncomfortable HEENT: Head is normocephalic. Pupils are equal, round. Sclerae anicteric. Mucous membranes of the mouth are moist. No JVD. No carotid bruit. CHEST EXAMINATION: Lungs are clear to auscultation. No chest wall tenderness is noted on palpation or with deep breathing. HEART EXAMINATION: Regular rate and rhythm. S1, S2 heard. No murmurs, gallops or rub. ABDOMEN: Soft, nontender. Positive bowel sounds. EXTREMITIES: 2+ peripheral pulses, no lower extremity edema and no calf t enderness. NEUROLOGIC EXAMINATION: Patient is awake, alert and oriented x3. ASSESSMENT 1. Inferior STEMI 2. Essential hypertension, uncontrolled 3. Tobacco abuse 4. COPD 5. Fibromyalgia PLAN Catheterization lab activated. We will take patient emergently to medical lab technologist for coronary angiography. Check 2-D echo. Better blood pressure control with beta erasmo. Further recommendations follow. Past Medical History Past Medical History: Asthma, COPD, Fibromyalgia, Hypertension, Osteoarthritis (OA) Additional Past Medical History / Comment(s): GLAUCOMA History of Any Multi-Drug Resistant Organisms: None Reported Past Surgical History: Appendectomy, Breast Surgery, Tonsillectomy, Tubal Ligation Additional Past Surgical History / Comment(s): CERVICAL SURGERY Past Anesthesia/Blood Transfusion Reactions: No Reported Reaction, Motion Sickness Past Psychological History: Anxiety, Depression, Panic Disorder, PTSD, Schizophrenia Smoking Status: Current every day smoker Past Alcohol Use History: Occasional Past Drug Use History: Marijuana - Past Family History Brother(s) Family Medical History: Cancer Mother Family Medical History: Cancer Additional Family Medical History / Comment(s): MOTHER HAD BREAST CANCER Father History Unknown: Yes Medications and Allergies Home Medications Medication Instructions Recorded Confirmed Type Albuterol Inhaler [Ventolin Hfa 1 puff INHALATION RT-Q4H PRN 06/11/20 10/31/20 History Inhaler] Carboxymethylcellulose Sodium 1 drop BOTH EYES Q2H PRN 06/11/20 10/31/20 History [Refresh Tears] Lisinopril [Prinivil] 10 mg PO DAILY 06/11/20 10/31/20 History Salmeterol 50 mcg [Serevent Diskus] 1 puff INHALATION RT-Q12H PRN 06/11/20 10/31/20 History Umeclidinium [place] [Incruse 1 puff INHALATION RT-DAILY PRN 06/11/20 10/31/20 History Ellipta] Allergy Sinus Tabs 1 tab PO Q6H PRN 10/31/20 10/31/20 History Ibuprofen [Motrin] 800 mg PO Q8H PRN 10/31/20 10/31/20 History Allergies Allergy/AdvReac Type Severity Reaction Status Date / Time Penicillins Allergy Severe Anaphylaxis Verified 10/31/20 17:33 Physical Exam Vitals: Vital Signs Temp Pulse Resp BP Pulse Ox 10/31/20 17:24 98.8 F 80 16 199/121 100 Intake and Output 10/31/20 10/31/20 10/31/20 06:59 14:59 22:59 Other: Weight 72.575 kg Results 10/31/20 17:35 CBC 10/31/20 Range/Units 17:35 WBC 12.2 H (3.8-10.6) k/uL RBC 5.08 (3.80-5.40) m/uL Hgb 16.3 H (11.4-16.0) gm/dL Hct 47.1 H (34.0-46.0) % Plt Count 237 (150-450) k/uL Current Medications Generic Name Dose Route Start Last Admin Trade Name Freq PRN Reason Stop Dose Admin Aspirin 325 mg 11/01/20 09:00 Aspirin 325 Mg Tab PO DAILY [facility] Heparin Sodium (Porcine) 0 unit 10/31/20 17:39 Heparin Sodium,Porcine 5,000 Unit/Ml 1 Ml Vial IV PER PROTOCOL PRN Low PTT Protocol Heparin Sodium/Sodium Chloride 250 mls @ 8.709 mls/hr 10/31/20 17:45 10/31/20 17:49 25,000 unit/ Sodium Chloride IV 12 units/kg/hr .Q24H JUAN 8.709 mls/hr Administration Protocol 12 UNITS/KG/HR Intake and Output 10/31/20 10/31/20 10/31/20 06:59 14:59 22:59 Other: Weight 72.575 kg Patient Weight 11/01/20 06:59 Weight 72.575 kg 10/31/20 17:35
[2020-10-31 18:04] LABS: Prothrombin Time 10.8 sec (9.0-12.0)
[2020-10-31 18:08] LABS: Partial Thromboplastin Time 21.1 sec (22.0-30.0)
[2020-10-31] MEDS ORDERED: LIDOCAINE 1% INJ 10MG/ML (20 ML MDV) SQ ONE (18:08)
[2020-10-31 18:09] LABS: ALT 21 U/L (4-34); AST 28 U/L (14-36); African American GFR (CKD) >90 (>60 ml/min/1.73 sqM); Albumin 4.5 g/dL (3.5-5.0); Alkaline Phosphatase 71 U/L (38-126); Anion Gap 6 mmol/L; Blood Urea Nitrogen 18 mg/dL (7-17); Carbon Dioxide 29 mmol/L (22-30); Chloride 104 mmol/L (98-107); Glucose 115 mg/dL (74-99); Magnesium 2.1 mg/dL (1.6-2.3); Non-African American GFR(CKD) 85 (>60 ml/min/1.73 sqM); Sodium 139 mmol/L (137-145); Total Bilirubin 0.4 mg/dL (0.2-1.3); Total Protein 7.7 g/dL (6.3-8.2)
[2020-10-31] MEDS ORDERED: IV FLUID CONTINUATION 1,000 ML IV ONE (18:09)
[2020-10-31] MEDS: VERAPAMIL SYRINGE (5 MG/10 ML) INTRAARTER ONE ×2 (18:10→18:43)
[2020-10-31] MEDS ORDERED: MIDAZOLAM 2 MG/2 ML VIAL IV ONE (18:11)
[2020-10-31] MEDS ORDERED: fentaNYL (PF) 50 MCG/ML 2 ML AMP IV ONE (18:11)
[2020-10-31] MEDS ORDERED: PRASUGREL 10 MG TAB ONE (18:15)
[2020-10-31] MEDS ORDERED: HEPARIN SODIUM 1,000 UN/ML (10ML VL) IV ONE (18:17)
[2020-10-31] MEDS ORDERED: PRASUGREL 10 MG TAB PO ONE (18:20)
[2020-10-31] MEDS ORDERED: ATROPINE SULFATE 0.1 MG/ML 10ML SYRINGE IV ONE (18:24)
[2020-10-31] MEDS: NITROGLYCERIN 1000MCG/10ML SYRINGE INTRACORON ONE ×3 (18:27→18:39)
[2020-10-31] MEDS ORDERED: IOPAMIDOL-370 125ML BTL INJ ONE (18:46)
[2020-10-31] MEDS ORDERED: NITROGLYCERIN 1000MCG/10ML SYRINGE INTRACORON ONE (18:47)
[2020-10-31] MEDS ORDERED: IOPAMIDOL-370 100ML BTL INJ ONE (18:57)
[2020-10-31] MEDS ORDERED: fentaNYL (PF) 50 MCG/ML 2 ML AMP ONE (19:00)
[2020-10-31] MEDS ORDERED: ZOLPIDEM 5 MG TAB PO PRN (19:19)
[2020-10-31] MEDS ORDERED: NITROGLYCERIN SL TABS 0.4 MG TAB SUBLINGUAL PRN (19:19)
[2020-10-31] MEDS ORDERED: ATROPINE SULFATE 0.1 MG/ML 10ML SYRINGE IV PRN (19:19)
[2020-10-31] MEDS ORDERED: RX INFO: IV CONTRAST WAS GIVEN 1 EACH MISC MISCELLANE PRN (19:19)
[2020-10-31] MEDS ORDERED: MAG HYDROX/AL HYDROX/SIMETH 30 ML CUP PO PRN (19:19)
--- NOTE | 2020-10-31 19:19 | P.PRCINT ---
Percutaneous Coronary Int. - Percutaneous Coronary Intervention Percutaneous Coronary Intervention: PROCEDURES PERFORMED: Left heart catheterization, bilateral coronary angiography, penumbra aspiration thrombectomy of RCA, PCI of mid RCA with a 3.0 x 18 mm Xience BLACK, postdilated with a 3.25 noncompliant balloon INDICATION: STEMI HISTORY: Patient is a pleasant 54-year-old female with history of hypertension, hyperlipidemia, COPD, tobacco abuse who has been having off-and-on chest pain over the last day and presented with inferior ST elevations. Therefore catheterization lab was activated. CONSENT:I have discussed the risks, benefits and alternative therapies for the above-mentioned procedure and for both sedation/analgesia as well as necessary blood product administration, if indicated, as they pertain to this patient. The patient has indicated understanding and acceptance of the risks and procedures discussed. PROCEDURE: After the risks, benefits and alternatives of the above mentioned procedure explained in detail with the patient, informed consent was obtained. Patient was taken to the catheterization lab and prepped and draped in usual fashion. 1% lidocaine was used to anesthetize the right radial artery. A 6- Georgian sheath was placed in the right radial artery using modified Seldinger t echnique. Left coronary angiography was performed with a 5-Georgian JL 3.5 catheter and right coronary angiography was performed with a 5-Georgian JR5 catheter in various views. The 5-Georgian FR5 catheter was inserted into the left ventricle and pressure measurements were obtained. The decision was made to intervene on the RCA. Heparin was given for ACT over 250. The RCA was engaged with a 6-Georgian AL 0.75 guide. A 0.014 BMW wire was advanced into the distal RCA. Due to high thrombus burden, a penumbra catheter was advanced with aspiration thrombectomy performed. Next, a 2.25 x 12 mm ball oon was advanced and inflated. Next a 3.0 x 18 mm Xience BLACK was deployed. This was postdilated with a 3.25 x 12 mm noncompliant balloon. The wire was pulled and final angiograms were performed. Preintervention there was 99% stenosis with DORA 2 flow. Postintervention there was 0% stenosis with DORA 3 flow. There was a more proximal 20% stenosis and a more distal 40% stenosis however felt best treated medically. The right radial sheath was removed and a TR band was placed with hemostasis achieved. The patient tolerated the procedure well. Patient was transported back to the post catheterization holding area in stable condition. Conscious Sedation: Patient was monitored under the direct supervision of vision of myself for conscious sedation using Versed and fentanyl for a total duration of 49 minutes HEMODYNAMICS: Aorta: 136/84 LV: 131/ 4, LVEDP 13mmHg SELECTIVE CORONARY ARTERIOGRAPHY: LEFT MAIN: The left main is a large caliber vessel which bifurcates into the LAD and circumflex. There is no significant stenosis. LEFT ANTERIOR DESCENDING CORONARY ARTERY: LAD is a large caliber vessel which wraps around to the apex. There is mild 20% stenosis of the proximal LAD. There is a more focal 30-40% mid LAD stenosis followed by a mid to distal 50% LAD stenosis. The LAD gives off 3 small caliber diagonal branches. significant stenosis. LEFT CIRCUMFLEX CORONARY ARTERY: Left circumflex is a moderate to large caliber vessel. The circumflex gives off a small caliber OM1 and then has a long 60-70% stenosis before giving off a moderate to large caliber OM 2 and a small caliber OM 3. RIGHT CORONARY ARTERY: The right coronary artery is a moderate to large caliber vessel which gives off a PDA and PLV branch and is the dominant vessel. There is a focal 99% mid RCA stenosis with DORA 2 flow. FINAL IMPRESSION: 1. Coronary artery disease as described above including 50% mid to distal LAD, 60-70% mid circumflex and 99% RCA stenosis 2. Status post successful PCI of mid RCA with a 3.0 x 18 mm Xience BLACK, postdilated with a 3.25 mm NC baloon 3. Normal left-sided filling pressures PLAN: 1. Aggressive risk factor modification per most recent ACC/AHA guidelines. 2. Continue dual antiplatelets for 12 months. 3. Tobacco cessation encouraged.
[2020-10-31] MEDS: SODIUM CHLORIDE 0.9% 1,000 ML IV SCH (20:00)
[2020-10-31] MEDS: METOPROLOL TARTRATE 12.5 MG TAB PO SCH (21:17)
[2020-11-01 04:19] LABS: Basophils # (A) 0.1 k/uL (0-0.2); Basophils % (A) 1 %; Eosinophils # (A) 0.3 k/uL (0-0.7); Eosinophils % (A) 3 %; HCT 39.6 % (34.0-46.0); HGB 13.4 gm/dL (11.4-16.0); Lymphocytes # (A) 3.7 k/uL (1.0-4.8); Lymphocytes % (A) 32 %; MCH 31.7 pg (25.0-35.0); MCV 93.2 fL (80.0-100.0); Mean Platelet Volume 7.3; Monocytes # (A) 0.7 k/uL (0-1.0); Monocytes % (A) 6 %; Neutrophils # (A) 6.6 k/uL (1.3-7.7); Neutrophils % (A) 57 %; Platelet Count 198 k/uL (150-450); RBC 4.24 m/uL (3.80-5.40); RDW 12.6 % (11.5-15.5); WBC 11.6 k/uL (3.8-10.6)
[2020-11-01 04:30] LABS: African American GFR (CKD) >90 (>60 ml/min/1.73 sqM); Cholesterol 137 mg/dL (<200); HDL Cholesterol 47 mg/dL (40-60); LDL Cholesterol,Calculated 67 mg/dL (0-99); Non-African American GFR(CKD) >90 (>60 ml/min/1.73 sqM); Triglycerides 114 mg/dL (<150)
[2020-11-01] MEDS: SODIUM CHLORIDE 0.9% 1,000 ML IV SCH (06:32)
[2020-11-01] MEDS: ASPIRIN 81 MG PO SCH (08:40)
[2020-11-01] MEDS: METOPROLOL TARTRATE 12.5 MG TAB PO SCH ×2 (08:40→21:28)
[2020-11-01] MEDS ORDERED: ASPIRIN 325 MG TAB PO SCH (09:00)
[2020-11-01] MEDS ORDERED: ALBUTEROL HFA INHALER INHALATION PRN (10:05)
[2020-11-01] MEDS ORDERED: ARTIFICIAL TEARS-HYPROMELLOSE DROPS 15 ML BTL BOTH EYES PRN (10:05)
[2020-11-01 11:26] VITALS: BMI 28.6
[2020-11-01] MEDS: PRASUGREL 10 MG TAB PO SCH (11:32)
[2020-11-01] MEDS: NICOTINE 21MG/24HR PATCH TRANSDERM SCH ×2 (11:32→11:34)
--- NOTE | 2020-11-01 12:01 | P.PN ---
Subjective Progress Note Date: 11/01/20 This is a 54-year-old female was admitted with acute inferior wall GA and had stent placement of the RCA. It. Patient is feeling much better. Denies any chest pain or shortness of breath. No arrhythmias noted. Patient is currently on beta erasmo along with dual antiplatelet agents and Lipitor. Her blood pressure is on the low side. Clinically patient is stable. Lungs are clear. Heart is regular. We'll continue get an echocardiogram to assess LV function. Patient could be transferred to telemetry unit later today. The puncture site is soft without any hematoma Objective - Vital Signs Vital signs: Vital Signs Temp 97.8 F 11/01/20 08:00 Pulse 61 11/01/20 10:00 Resp 20 11/01/20 10:00 BP 121/67 11/01/20 09:00 Pulse Ox 96 11/01/20 10:00 Intake & Output 10/31/20 11/01/20 11/01/20 18:59 06:59 18:59 Intake Total 100 1399.718 450 Output Total 600 500 Balance 100 799.718 -50 Weight 72.575 kg 78.1 kg 78.1 kg Intake: IV 100 1000 0 Sodium Chloride 0.9% 1, 1000 0 000 ml @ 100 mls/hr IV . Q10H JUAN Rx#:[id number] Intake, IV Titration 99.718 Amount Heparin Sod,Pork in 0.45% 99.718 NaCl 25,000 unit In 0.45 % NaCl 1 250ml.bag @ 12 UNITS/KG/HR 8.709 mls/hr IV .Q24H JUAN Rx#: [id number] Oral 300 450 Output: Urine 600 500 Other: Voiding Method Bedside Commode - Exam GENERAL EXAM: Patient is alert and oriented and doesn't appear to be in any acute distress HEENT: Normocephalic. Normal reaction of pupils, equal size, normal range of extraocular motion. No erythema or exudates in the throat. NECK: No masses, no nuchal rigidity. CHEST: No chest wall deformity. LUNGS: Equal air entry with no crackles or wheeze. HEART: S1 and S2 normal with no audible mumurs or gallops. Regular rhythm, femorals equal on both sides.. ABDOMEN: No hepatosplenomegaly, normal bowel sounds, no guarding or rigidity. SKIN: No rashes CENTRAL NERVOUS SYSTEM: No focal deficits. EXTREMITIES: No cyanosis, clubbing or edema. Puncture site is soft without any hematoma - Labs CBC & Chem 7: 11/01/20 03:42 11/01/20 03:42 Labs: Abnormal Lab Results - Last 24 Hours (Table) 10/31/20 10/31/20 10/31/20 Range/Units 17:35 17:35 17:35 WBC 12.2 H (3.8-10.6) k/uL Hgb 16.3 H (11.4-16.0) gm/dL Hct 47.1 H (34.0-46.0) % APTT 21.1 L (22.0-30.0) sec BUN 18 H (7-17) mg/dL Glucose 115 H (74-99) mg/dL Troponin I (0.000-0.034) ng/mL 10/31/20 10/31/20 10/31/20 Range/Units 17:35 22:49 22:49 WBC (3.8-10.6) k/uL Hgb (11.4-16.0) gm/dL Hct (34.0-46.0) % APTT 33.8 H (22.0-30.0) sec BUN (7-17) mg/dL Glucose (74-99) mg/dL Troponin I 0.287 H* 3.700 H* (0.000-0.034) ng/mL 11/01/20 11/01/20 11/01/20 Range/Units 03:42 03:42 03:42 WBC 11.6 H (3.8-10.6) k/uL Hgb (11.4-16.0) gm/dL Hct (34.0-46.0) % APTT 37.2 H (22.0-30.0) sec BUN (7-17) mg/dL Glucose (74-99) mg/dL Troponin I 7.080 H* (0.000-0.034) ng/mL Assessment and Plan (1) ST elevation myocardial infarction (STEMI) Current Visit: Yes Status: Acute Code(s): I21.3 - ST ELEVATION (STEMI) MYOCARDIAL INFARCTION OF [facility] SITE SNOMED Code(s): 16419566 Plan: Continue current medical therapy. Increase activity. May be transferred to telemetry unit
--- NOTE | 2020-11-01 20:00 | P.HPIM ---
History of Present Illness H&P Date: 11/01/20 Chief Complaint: Chest pain History of presenting complaint: This is a pleasant 54-year-old patient of Dr. Abby Domingo. Chronic stable medical conditions include COPD, hypertension, fibromyalgia, depression, schizophrenia. Patient long-standing smoker. Patient been having chest pain on and off for some time. Patient was here in the hospital in May 2020. Did un dergo a nuclear stress test. Did show fixed effects. Patient now presents with again intermittent chest pains. Sometimes exertion. On this occasion yesterday she had a real significant squeezing sensation in the middle of the chest. Been into hot flash started perspiring. Decided to come in. ST elevation OR was ruled in. Taken to the Sign Writer Hand. Successful stenting to the RCA was carried ou t. This morning patient. Laying in bed. No chest pain. Review of systems: GEN.: Tired EYES: None HEENT: None NECK: None RESPIRATORY: Baseline short of breath wheezing CARDIOVASCULAR: As above GASTROINTESTINAL: None GENITOURINARY: None MUSCULOSKELETAL: None LYMPHATICS: None HEMATOLOGICAL: None PSYCHIATRY: None NEUROLOGICAL: None Past medical history to include: COPD, fibromyalgia, dementia, hypertension, osteoarthritis, schizophrenia, depression Social history: Lives with her daughter. Does marijuana occasionally. Smoking for about 35 years. After about a pack a day. . No alcohol use. Opium, hash in the past Physical examination: VITAL SIGNS: 7.8, 61, 18, 115/71, 99% room air GENERAL: BMI 28.7, laying in bed, comfortable EYES: Pupils equal. Conjunctiva normal. HEENT: External appearance of nose and ears normal, oral cavity grossly normal. NECK: JVD not raised; masses not palpable. HEART: First and second heart sounds are normal; no edema. LUNGS: Respiratory rate increased; decreased breath sounds prolonged expiration ABDOMEN: Soft, nontender, liver spleen not palpable, no masses palpable. PSYCH: Alert and oriented x3; mood and affect slightly anxiousl. NEUROLOGICAL: Cranial nerves grossly intact; no facial asymmetry, power and sensation grossly intact. LYMPHATICS: No lymph nodes palpable in the axilla and neck INVESTIGATIONS, reviewed in the clinical context: White count 9.6 hemoglobin 13.4 creatinine 0.5 Troponin I 0.287, 3.7, 7.0 LDL 67 EKG tracing personally reviewed by me-ST elevation in inferior leads Chest x-ray film personally reviewed by me-portable poor penetration Assessment: -Acute ST elevation myocardial infarction of inferior wall -Angioplasty stenting to RCA -Coronary artery disease with cardiac catheterization showing-50% mid to distal LAD, 60-70% mid circumflex, 99% RCA stenosis. -Acute COPD exacerbation in a current smoker -Chronic nicotine dependence cigarette smoker -Chronic fibromyalgia -Essential hypertension -Anxiety depression otherwise specified - Plan: Patient's currently on aspirin, Lopressor, Effient. Add TONEY inhibitor and Lipitor. Care was discussed with the patient. Follow with cardiology. Smoke cessation counseling: This was done with the patient. Nicotine patch is being given. More than 3 m inutes was spent for this Past Medical History Past Medical History: Asthma, Coronary Artery Disease (CAD), COPD, Fibromyalgia, Hypertension, Osteoarthritis (OA) Additional Past Medical History / Comment(s): GLAUCOMA History of Any Multi-Drug Resistant Organisms: None Reported Past Surgical History: Appendectomy, Breast Surgery, Tonsillectomy, Tubal Ligation Additional Past Surgical History / Comment(s): Cervix removal Past Anesthesia/Blood Transfusion Reactions: No Reported Reaction Past Psychological History: Anxiety, Depression, Panic Disorder, PTSD, Schizophrenia Additional Psychological History / Comment(s): PATIENT'S DTR STATES PT TOLD HER 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 Pt. claims Schizophrenia was ruled out. Smoking Status: Current every day smoker Past Alcohol Use History: Occasional Additional Past Alcohol Use History / Comment(s): STARTED SMOKING AT AGE 19 SMOKES 10-15 CIG A DAY Past Drug Use History: Marijuana Additional Drug Use History / Comment(s): hash, opium in past.// now smokes just marijuana - Past Family History Brother(s) Family Medical History: Cancer Mother Family Medical History: Cancer Additional Family Medical History / Comment(s): MOTHER HAD BREAST CANCER Father History Unknown: Yes Medications and Allergies Home Medications Medication Instructions Recorded Confirmed Type Albuterol Inhaler [Ventolin Hfa 1 puff INHALATION RT-Q4H PRN 06/11/20 10/31/20 History Inhaler] Carboxymethylcellulose Sodium 1 drop BOTH EYES Q2H PRN 06/11/20 10/31/20 History [Refresh Tears] Lisinopril [Prinivil] 10 mg PO DAILY 06/11/20 10/31/20 History Salmeterol 50 mcg [Serevent Diskus] 1 puff INHALATION RT-Q12H PRN 06/11/20 10/31/20 History Umeclidinium [place] [Incruse 1 puff INHALATION RT-DAILY PRN 06/11/20 10/31/20 History Ellipta] Allergy Sinus Tabs 1 tab PO Q6H PRN 10/31/20 10/31/20 History Ibuprofen [Motrin] 800 mg PO Q8H PRN 10/31/20 10/31/20 History Allergies Allergy/AdvReac Type Severity Reaction Status Date / Time Penicillins Allergy Severe Anaphylaxis Verified 10/31/20 17:33 Physical Exam Vitals: Vital Signs Temp Pulse Resp BP Pulse Ox 11/01/20 09:00 72 11 L 121/67 96 11/01/20 08:00 97.8 F 61 18 99 11/01/20 07:00 67 23 115/71 11/01/20 06:00 62 17 108/58 94 L 11/01/20 05:00 65 21 95/53 93 L 11/01/20 04:00 97.9 F 61 18 102/55 94 L 11/01/20 03:00 66 21 109/71 94 L 11/01/20 02:00 57 L 19 124/69 95 11/01/20 01:00 58 L 18 124/78 94 L 11/01/20 00:00 98 F 60 17 125/65 95 10/31/20 23:00 66 19 127/83 94 L 10/31/20 22:00 70 21 131/69 96 10/31/20 21:00 74 12 128/80 98 10/31/20 20:00 97.8 F 94 12 128/80 96 10/31/20 17:24 98.8 F 80 16 199/121 100 Intake and Output 10/31/20 11/01/20 11/01/20 22:59 06:59 14:59 Intake Total 630.336 869.382 200 Output Total 400 200 500 Balance 230.336 669.382 -300 Intake: IV 300 800 0 Sodium Chloride 0.9% 1, 200 800 0 000 ml @ 100 mls/hr IV . Q10H [facility] Rx#:[id number] Intake, IV Titration 30.336 69.382 Amount Heparin Sod,Pork in 0.45% 30.336 69.382 NaCl 25,000 unit In 0.45 % NaCl 1 250ml.bag @ 12 UNITS/KG/HR 8.709 mls/hr IV .Q24H [facility] Rx#: [id number] Oral 300 200 Output: Urine 400 200 500 Other: Voiding Method Bedside Commode Weight 72.575 kg 78.1 kg Results CBC & Chem 7: 11/01/20 03:42 11/01/20 03:42 Labs: Abnormal Lab Results - Last 24 Hours (Table) 10/31/20 10/31/20 10/31/20 Range/Units 17:35 17:35 17:35 WBC 12.2 H (3.8-10.6) k/uL Hgb 16.3 H (11.4-16.0) gm/dL Hct 47.1 H (34.0-46.0) % APTT 21.1 L (22.0-30.0) sec BUN 18 H (7-17) mg/dL Glucose 115 H (74-99) mg/dL Troponin I (0.000-0.034) ng/mL 10/31/20 10/31/20 10/31/20 Range/Units 17:35 22:49 22:49 WBC (3.8-10.6) k/uL Hgb (11.4-16.0) gm/dL Hct (34.0-46.0) % APTT 33.8 H (22.0-30.0) sec BUN (7-17) mg/dL Glucose (74-99) mg/dL Troponin I 0.287 H* 3.700 H* (0.000-0.034) ng/mL 11/01/20 11/01/20 11/01/20 Range/Units 03:42 03:42 03:42 WBC 11.6 H (3.8-10.6) k/uL Hgb (11.4-16.0) gm/dL Hct (34.0-46.0) % APTT 37.2 H (22.0-30.0) sec BUN (7-17) mg/dL Glucose (74-99) mg/dL Troponin I 7.080 H* (0.000-0.034) ng/mL Thrombosis Risk Factor Assmnt - Choose All That Apply Each Factor Represents 1 point: Abnormal pulmonary function (COPD), Age 41-60 years, Obesity (BMI >25) Thrombosis Risk Factor Assessment Total Risk Factor Score: 3 Thrombosis Risk Factor Assessment Level: Moderate Risk
[2020-11-01] MEDS: lisinopriL 10 MG TAB PO SCH (21:28)
[2020-11-01] MEDS: ATORVASTATIN 80 MG TAB PO SCH (21:30)
[2020-11-02 04:45] LABS: Basophils # (A) 0.1 k/uL (0-0.2); Basophils % (A) 1 %; Eosinophils # (A) 0.4 k/uL (0-0.7); Eosinophils % (A) 4 %; HCT 41.2 % (34.0-46.0); HGB 13.7 gm/dL (11.4-16.0); Lymphocytes # (A) 2.7 k/uL (1.0-4.8); Lymphocytes % (A) 27 %; MCH 31.4 pg (25.0-35.0); MCHC 33.2 g/dL (31.0-37.0); MCV 94.6 fL (80.0-100.0); Mean Platelet Volume 7.2; Monocytes # (A) 0.6 k/uL (0-1.0); Monocytes % (A) 6 %; Neutrophils # (A) 6.2 k/uL (1.3-7.7); Neutrophils % (A) 61 %; Platelet Count 213 k/uL (150-450); RBC 4.36 m/uL (3.80-5.40); RDW 13.2 % (11.5-15.5); WBC 10.1 k/uL (3.8-10.6)
--- NOTE | 2020-11-02 07:31 | ECHOF ---
Referral Reason:cardiac function MEASUREMENTS -------- HEIGHT: 165.1 cm WEIGHT: 78.0 kg BP: 146/71 RVIDd: 3.0 cm (< 3.3) IVSd: 1.3 cm (0.6 - 1.1) LVIDd: 4.1 cm (3.9 - 5.3) LVPWd: 1.5 cm (0.6 - 1.1) IVSs: 1.9 cm LVIDs: 2.7 cm LVPWs: 1.8 cm LAESV Index (A-L): 27.24 ml/m Ao Diam: 3.0 cm (2.0 - 3.7) AV Cusp: 1.5 cm (1.5 - 2.6) MV EXCURSION: 13.514 mm (> 18.000) MV EF SLOPE: 67 mm/s (70 - 150) EPSS: 0.4 cm MV E Luis: 0.90 m/s MV DecT: 280 ms MV A Luis: 0.62 m/s MV E/A Ratio: 1.44 RAP: 5.00 mmHg RVSP: 30.14 mmHg FINDINGS -------- Sinus rhythm. This was a technically adequate study. Patient is post cardiac catheterization and cannot be in lef t lateral position. The left ventricular size is normal. There is mild concentric left ventricular hypertrophy. Overa ll left ventricular systolic function is low-normal with, an EF between 50 - 55 %. The diastolic fi lling pattern is normal for the age of the patient 9.95. Basal inferior LV wall motion is hypokinet ic. The right ventricle is normal in size. Normal LA size by volume 22+/-6 ml/m2. The right atrial size is normal. Interatrial and interventricular septum intact. The aortic valve is trileaflet, and appears structurally normal. No aortic stenosis or regurgitation. The mitral valve is normal. Gugj-or-[id number] mitral regurgitation is present. The tricuspid valve appears structurally normal. Mild tricuspid regurgitation present. There is n o evidence of pulmonary hypertension. The right ventricular systolic pressure, as measured by Doppl er, is 30.14mmHg. There is no pulmonic regurgitation present. The aortic root size is normal. Normal inferior vena cava with normal inspiratory collapse consistent with estimated right atrial pre ssure of 5 mmHg. There is no pericardial effusion. CONCLUSIONS -------- 1. There is mild concentric left ventricular hypertrophy. 2. Overall left ventricular systolic function is low-normal with, an EF between 50 - 55 %. 3. The diastolic filling pattern is normal for the age of the patient 9.95 4. Basal inferior LV wall motion is hypokinetic. 5. Normal LA size by volume 22+/-6 ml/m2. 6. The aortic valve is trileaflet, and appears structurally normal. No aortic stenosis or regurgitati on. 7. Hide-dz-ghaqoutu mitral regurgitation is present. 8. Mild tricuspid regurgitation present. 9. There is no pericardial effusion. MASTER AUTOMOTIVE TECHNICIAN: Susan Rey RDCS
--- NOTE | 2020-11-02 08:11 | P.PN ---
Subjective Progress Note Date: 11/02/20 This is a 54-year-old female was admitted with acute inferior wall AK and had stent placement of the RCA. It. Patient is feeling much better. Denies any chest pain or shortness of breath. No arrhythmias noted. Patient is currently on beta erasmo along with dual antiplatelet agents and Lipitor. Her blood pressure is on the low side. Clinically patient is stable. Lungs are clear. Heart is regular. We'll continue get an echocardiogram to assess LV function. Patient could be transferred to telemetry unit later today. The puncture site is soft without any hematoma. 11/02/2019: This patient is still in intensive care unit as a telemetry patient. Patient continues to do well. Denies any chest pain, shortness of breath or dizziness. No arrhythmias noted. Echocardiogram showed normal LV function without any segmental wall motion defects. No valvular abnormalities. Patient is being transferred to telemetry. Increase activity. Patient could be discharged home within next 24 hours. Follow-up with Dr. Hull Objective - Vital Signs Vital signs: Vital Signs Temp 98.2 F 11/02/20 00:00 Pulse 68 11/02/20 00:00 Resp 22 11/02/20 00:00 BP 116/69 11/02/20 00:00 Pulse Ox 94 L 11/02/20 00:00 Intake & Output 11/01/20 11/02/20 11/02/20 18:59 06:59 18:59 Intake Total 850 400 Output Total 500 Balance 350 400 Weight 78.1 kg Intake: IV 0 Sodium Chloride 0.9% 1, 0 000 ml @ 100 mls/hr IV . Q10H [facility] Rx#:[id number] Oral 850 400 Output: Urine 500 Other: Voiding Method Bedside Commode # Voids 2 3 # Bowel Movements 1 - Exam GENERAL EXAM: Patient is alert and oriented and doesn't appear to be in any acute distress HEENT: Normocephalic. Normal reaction of pupils, equal size, normal range of extraocular motion. No erythema or exudates in the throat. NECK: No masses, no nuchal rigidity. CHEST: No chest wall deformity. LUNGS: Equal air entry with no crackles or wheeze. HEART: S1 and S2 normal with no audible mumurs or gallops. Regular rhythm, femorals equal on both sides.. ABDOMEN: No hepatosplenomegaly, normal bowel sounds, no guarding or rigidity. SKIN: No rashes CENTRAL NERVOUS SYSTEM: No focal deficits. EXTREMITIES: No cyanosis, clubbing or edema. Puncture site is soft without any hematoma - Labs CBC & Chem 7: 11/02/20 04:19 11/01/20 03:42 Assessment and Plan (1) ST elevation myocardial infarction (STEMI) Current Visit: Yes Status: Acute Code(s): I21.3 - ST ELEVATION (STEMI) [facility] Code(s): 09705947 Plan: Patient's remains stable. No arrhythmias. No chest pain. Increase activity. Discharge home within next 24 hours
[2020-11-02] MEDS: NICOTINE 21MG/24HR PATCH TRANSDERM SCH (08:31)
[2020-11-02] MEDS: METOPROLOL TARTRATE 12.5 MG TAB PO SCH ×2 (08:31→20:14)
[2020-11-02] MEDS: ASPIRIN 81 MG PO SCH (08:31)
[2020-11-02] MEDS: PRASUGREL 10 MG TAB PO SCH (08:31)
--- NOTE | 2020-11-02 17:17 | P.PN ---
Progress Note - Text Progress Note Date: 11/02/20 Chief Complaint: Chest pain History of presenting complaint: This is a pleasant 54-year-old patient of Dr. Abby Domingo. Chronic stable medical conditions include COPD, hypertension, fibromyalgia, depression, schizophrenia. Patient long-standing smoker. Patient been having chest pain on and off for some time. Patient was here in the hospital in May 2020. Did undergo a nuclear stress test. Did show fixed effects. Patient now presents with again intermittent chest pains. Sometimes exertion. On this occasion yesterday she had a real significant squeezing sensation in the middle of the chest. Breast into hot flash started perspiring. Decided to come in. ST elevation [place] was ruled in. Taken to the Aircraft Engine Mechanic Overhaul. Successful stenting to the RCA was carried out. Today-ICU: Sitting up. No cardiac symptoms. Did walk a bit. Tolerated diet Review of systems: Was done for constitutional, cardiovascular, GI, pulmonary. relevant finding as above Active Medications Al Hydroxide/Mg Hydroxide (Mag Hydrox/Al Hydrox/Simeth 30 Ml Cup) 30 ml PO Q4HR PRN PRN Reason: Heartburn Albuterol Sulfate (Albuterol Hfa Inhaler) 1 puff INHALATION RT-Q4H PRN PRN Reason: Shortness Of Breath Artificial Tears (Artificial Tears-Hypromellose Drops 15 Ml Btl) 1 drops BOTH EYES Q2H PRN PRN Reason: DRY EYES Aspirin (Aspirin 81 Mg) 81 mg PO DAILY [facility] Last Admin: 11/02/20 08:31 Dose: 81 mg Documented by: Atorvastatin Calcium (Atorvastatin 80 Mg Tab) 80 mg PO HS [facility] Last Admin: 11/01/20 21:30 Dose: Not Given Documented by: Atropine Sulfate (Atropine Sulfate 0.1 Mg/Ml 10ml Syringe) 0.5 mg IV ONCE PRN PRN Reason: Symptomatic Bradycardia Lisinopril (Lisinopril 10 Mg Tab) 10 mg PO HS [facility] Last Admin: 11/01/20 21:28 Dose: 10 mg Documented by: Metoprolol Tartrate (Metoprolol Tartrate 12.5 Mg Tab) 12.5 mg PO BID [facility] Last Admin: 11/02/20 08:31 Dose: 12.5 mg Documented by: Miscellaneous Information (Rx Info: Iv Contrast Was Given 1 Each Misc) 1 each MISCELLANE DAILY PRN PRN Reason: Per Protocol Stop: 11/02/20 19:19 Nicotine (Nicotine 21mg/24hr Patch) 1 patch TRANSDERM DAILY [facility] Last Admin: 11/02/20 08:31 Dose: Not Given Documented by: Nitroglycerin (Nitroglycerin Sl Tabs 0.4 Mg Tab) 0.4 mg SUBLINGUAL Q5M PRN PRN Reason: Chest Pain Prasugrel (Prasugrel 10 Mg Tab) 10 mg PO DAILY [facility] Last Admin: 11/02/20 08:31 Dose: 10 mg Documented by: Zolpidem Tartrate (Zolpidem 5 Mg Tab) 5 mg PO HS PRN PRN Reason: Insomnia Past medical history to include: COPD, fibromyalgia, dementia, hypertension, osteoarthritis, schizophrenia, depression Social history: Lives with her daughter. Does marijuana occasionally. Smoking for about 35 years. After about a pack a day. . No alcohol use. Opium, hash in the past Physical examination: VITAL SIGNS: 98, 67, 11, 125/69, 95% room air GENERAL: BMI 28.7, sitting up in a chair, comfortable EYES: Pupils equal. Conjunctiva normal. HEENT: External appearance of nose and ears normal, oral cavity grossly normal. NECK: JVD not raised; masses not palpable. HEART: First and second heart sounds are normal; no edema. LUNGS: Respiratory rate increased; decreased breath sounds prolonged expiration ABDOMEN: Soft, nontender, liver spleen not palpable, no masses palpable. PSYCH: Alert and oriented x3; mood and affect slightly anxiousl. INVESTIGATIONS, reviewed in the clinical context: November 02: White count 10.1 hemoglobin 13.7 White count 9.6 hemoglobin 13.4 creatinine 0.5 Troponin I 0.287, 3.7, 7.0 LDL 67 EKG tracing personally reviewed by me-ST elevation in inferior leads Chest x-ray film personally reviewed by me-portable poor penetration Assessment: -Acute ST elevation myocardial infarction of inferior wall -Angioplasty stenting to RCA -Coronary artery disease with cardiac catheterization showing-50% mid to distal LAD, 60-70% mid circumflex, 99% RCA stenosis. -Acute COPD exacerbation in a current smoker -Chronic nicotine dependence cigarette smoker -Chronic fibromyalgia -Essential hypertension -Anxiety depression otherwise specified - Plan: Continue aspirin, Lopressor, Effient., TONEY inhibitor and Lipitor. Care was discussed with the patient. Hopefully home tomorrow
[2020-11-02] MEDS: lisinopriL 10 MG TAB PO SCH (20:14)
[2020-11-02] MEDS: ATORVASTATIN 80 MG TAB PO SCH (20:22)
[2020-11-02 20:44] VITALS: RESP 16
[2020-11-03 08:09] LABS: Basophils # (A) 0.1 k/uL (0-0.2); Basophils % (A) 1 %; Eosinophils # (A) 0.5 k/uL (0-0.7); Eosinophils % (A) 5 %; HCT 43.7 % (34.0-46.0); Lymphocytes # (A) 2.2 k/uL (1.0-4.8); Lymphocytes % (A) 24 %; MCH 31.9 pg (25.0-35.0); MCHC 34.3 g/dL (31.0-37.0); MCV 93.2 fL (80.0-100.0); Mean Platelet Volume 7.2; Monocytes # (A) 0.4 k/uL (0-1.0); Monocytes % (A) 4 %; Neutrophils % (A) 65 %; Platelet Count 214 k/uL (150-450); RDW 12.8 % (11.5-15.5); WBC 9.2 k/uL (3.8-10.6)
[2020-11-03] MEDS: PRASUGREL 10 MG TAB PO SCH (09:34)
[2020-11-03] MEDS: METOPROLOL TARTRATE 12.5 MG TAB PO SCH (09:34)
[2020-11-03] MEDS: ASPIRIN 81 MG PO SCH (09:34)
[2020-11-03] MEDS: NICOTINE 21MG/24HR PATCH TRANSDERM SCH (09:35)
[2020-11-03 10:53] VITALS: BP 112/67; PULSE 69; TEMP 98
--- NOTE | 2020-11-03 14:03 | P.PN ---
Subjective Progress Note Date: 11/03/20 HISTORY OF PRESENT ILLNESS: Patient is status post cardiac cath with PCI of the mid RCA. Patient denies chest pain or pressure. She denies shortness of breath. Patient's vital signs are stable. She is hoping to be discharged home today. PHYSICAL EXAM: VITAL SIGNS: Reviewed. GENERAL: Well-developed in no acute distress. NECK: Supple. No JVD or thyromegaly LUNGS: Respirations even and unlabored. Lungs essentially clear to auscultation bilaterally. HEART: Regular rate and rhythm. S1 and S2 heard. EXTREMITIES: Normal range of motion. No clubbing or cyanosis. Peripheral pulses intact. No lower extremity edema ASSESSMENT: Acute STEMI, status post PCI to RCA Hypertension COPD Fibromyalgia Nicotine dependence PLAN: Continue current cardiac medications Patient prescribed lipitor 80mg. Patient adamantly refusing to take Lipitor and states "my cholesterol is fine. I am not taking that medication". Dr. Favian stewart discussed importance of taking lipitor with patient. Patient agreed to take a lower dose of lipitor. Dr. Fish ordered Lipitor 10 mg daily and patient agreeable to taking medication. Patient may be discharged home today from a cardiac standpoint. She is to follow up outpatient with Dr. Hull Nurse practitioner note has been reviewed by physician. Signing provider agrees with the documented findings, assessment, and plan of care. Objective - Vital Signs Vital signs: Vital Signs Temp 98 F 11/03/20 08:00 Pulse 69 11/03/20 08:00 Resp 16 11/03/20 08:00 BP 112/67 11/03/20 08:00 Pulse Ox 97 11/03/20 08:00 Intake & Output 11/02/20 11/03/20 11/03/20 18:59 06:59 18:59 Intake Total 800 480 Balance 800 480 Weight 73.6 kg Intake: Oral 800 480 Other: Voiding Method Bedside Commode Bedside Commode # Voids 2 1 - Labs CBC & Chem 7: 11/03/20 07:58 11/01/20 03:42
[2020-11-03] MEDS ORDERED: ATORVASTATIN 10 MG TAB PO SCH (21:00)
--- NOTE | 2020-11-03 21:59 | P.DS ---
Providers Date of admission: 10/31/20 17:57 Expected date of discharge: 11/03/20 Attending physician: Eirberto Singh Consults: 10/31/20 17:43 Consult Physician Urgent Consulting Provider: Alfredo Hull Consult Reason/Comments: stemi Do you want consulting provider notified?: Already Contacted 10/31/20 19:19 Consult Physician Routine Consulting Provider: Hansel Collado Consult Reason/Comments: Post Interventional patient Do you want consulting provider notified?: Already Contacted [place] [facility] [place] Chief Complaint: Chest pain History of presenting complaint: This is a pleasant 54-year-old patient of Dr. Abby Domingo. Chronic stable medical conditions include COPD, hypertension, fibromyalgia, depression, schizophrenia. Patient long-standing smoker. Patient been having chest pain on and off for some time. Patient was here in the hospital in May 2020. Did undergo a nuclear stress test. Did show fixed effects. Patient now presents with again intermittent chest pains. Sometimes exertion. On this occasion yesterday she had a real significant squeezing sensation in the middle of the chest. Breast into hot flash started perspiring. Decided to come in. ST elevation UT was ruled in. Taken to the Nuclear Reactor Engineer. Successful stenting to the RCA was carried out. Today-ambulatory. Narcotic symptoms. Feeling well. ASCUS with the patient. Cleared by cardiology to go home. Consultation: Cardiology associates Past medical history to include: COPD, fibromyalgia, dementia, hypertension, osteoarthritis, schizophrenia, depression Social history: Lives with her daughter. Does marijuana occasionally. Smoking for about 35 years. After about a pack a day. . No alcohol use. Opium, hash in the past Physical examination: VITAL SIGNS: 88, 69, 16, 112/67, 97% room air GENERAL: BMI 28.7, sitting up in a chair, comfortable EYES: Pupils equal. Conjunctiva normal. HEENT: External appearance of nose and ears normal, oral cavity grossly normal. NECK: JVD not raised; masses not palpable. HEART: First and second heart sounds are normal; no edema. LUNGS: Respiratory rate increased; decreased breath sounds prolonged expiration ABDOMEN: Soft, nontender, liver spleen not palpable, no masses palpable. PSYCH: Alert and oriented x3; mood and affect slightly anxiousl. INVESTIGATIONS, reviewed in the clinical context: November 03: White count 9.2 hemoglobin 15 Nancie 21: White count 10.1 hemoglobin 13.7 White count 9.6 hemoglobin 13.4 creatinine 0.5 Troponin I 0.287, 3.7, 7.0 LDL 67 EKG tracing personally reviewed by me-ST elevation in inferior leads Chest x-ray film personally reviewed by me-portable poor penetration Assessment: -Acute ST elevation myocardial infarction of inferior wall -Angioplasty stenting to RCA -Coronary artery disease with cardiac catheterization showing-50% mid to distal LAD, 60-70% mid circumflex, 99% RCA stenosis. -Acute COPD exacerbation in a current smoker -Chronic nicotine dependence cigarette smoker -Chronic fibromyalgia -Essential hypertension -Anxiety depression otherwise specified - Disposition: Home Patient Condition at Discharge: Stable Plan - Discharge Summary Discharge Rx Participant: Yes New Discharge Prescriptions: New Aspirin 81 mg PO DAILY #30 chew Prasugrel [Effient] 10 mg PO DAILY #30 tab Nicotine 21Mg/24Hr Patch [Habitrol] 1 patch TRANSDERM DAILY #14 patch Atorvastatin [Lipitor] 10 mg PO HS #30 tab Metoprolol Tartrate [Lopressor] 12.5 mg PO BID #60 tab Nitroglycerin Sl Tabs [Nitrostat] 0.4 mg SUBLINGUAL Q5M PRN #25 tab PRN Reason: Chest Pain Continue Albuterol Inhaler [Ventolin Hfa Inhaler] 1 puff INHALATION RT-Q4H PRN PRN Reason: Shortness Of Breath Umeclidinium [place] [Incruse Ellipta] 1 puff INHALATION RT-DAILY PRN PRN Reason: Shortness Of Breath Salmeterol 50 mcg [Serevent Diskus] 1 puff INHALATION RT-Q12H PRN PRN Reason: Shortness Of Breath Carboxymethylcellulose Sodium [Refresh Tears] 1 drop BOTH EYES Q2H PRN PRN Reason: DRY EYES Changed Lisinopril [Prinivil] 10 mg PO HS #30 tab Discontinued Allergy Sinus Tabs 1 tab PO Q6H PRN PRN Reason: Allergy Symptoms Ibuprofen [Motrin] 800 mg PO Q8H PRN PRN Reason: Pain Discharge Medication List Albuterol Inhaler [Ventolin Hfa Inhaler] 1 puff INHALATION RT-Q4H PRN 06/11/20 [History] Carboxymethylcellulose Sodium [Refresh Tears] 1 drop BOTH EYES Q2H PRN 06/11/20 [History] Salmeterol 50 mcg [Serevent Diskus] 1 puff INHALATION RT-Q12H PRN 06/11/20 [History] Umeclidinium [place] [Incruse Ellipta] 1 puff INHALATION RT-DAILY PRN 06/11/20 [History] Aspirin 81 mg PO DAILY #30 chew 11/03/20 [Rx] Atorvastatin [Lipitor] 10 mg PO HS #30 tab 11/03/20 [Rx] Lisinopril [Prinivil] 10 mg PO HS #30 tab 11/03/20 [Rx] Metoprolol Tartrate [Lopressor] 12.5 mg PO BID #60 tab 11/03/20 [Rx] Nicotine 21Mg/24Hr Patch [Habitrol] 1 patch TRANSDERM DAILY #14 patch 11/03/20 [Rx] Nitroglycerin Sl Tabs [Nitrostat] 0.4 mg SUBLINGUAL Q5M PRN #25 tab 11/03/20 [Rx] Prasugrel [Effient] 10 mg PO DAILY #30 tab 11/03/20 [Rx] Follow up Appointment(s)/Referral(s): Alfredo Hull DO [STAFF PHYSICIAN] - 11/13/20 3:00 pm Stepan Domingo DO [STAFF PHYSICIAN] - 11/06/20 10:45 am Patient Instructions/Handouts: *Surgery [facility] - After Heart Catheterization - Chair Lift Operator Instructions, How to Stop Smoking (DC) Discharge Disposition: HOME SELF-CARE
== END 2020-11-03 12:48 | disposition home or self-care (01) | DRG 247 ==
LOC: EC 17:23 → 2SICU 17:57 → 3SCARD 11-02 17:35
PROVIDERS: ADMIT Hospitalist; ATTEND Hospitalist
PROC: B2111ZZ Fluoroscopy of Multiple Coronary Arteries using Low Osmolar Contrast (ICD-10-PCS; principal; 2020-10-31 17:47)
PROC: 4A023N7 Measurement of Cardiac Sampling and Pressure, Left Heart, Percutaneous Approach (ICD-10-PCS; principal; 2020-10-31 17:47)
PROC: 02C03ZZ Extirpation of Matter from Coronary Artery, One Artery, Percutaneous Approach (ICD-10-PCS; principal; 2020-10-31 17:47)
PROC: 027034Z Dilation of Coronary Artery, One Artery with Drug-eluting Intraluminal Device, Percutaneous Approach (ICD-10-PCS; principal; 2020-10-31 17:47)
DX: I21.19 ST elevation (STEMI) myocardial infarction involving other coronary artery of inferior wall (principal); J44.1 Chronic obstructive pulmonary disease with (acute) exacerbation; F43.10 Post-traumatic stress disorder, unspecified; I10 Essential (primary) hypertension; I25.10 Atherosclerotic heart disease of native coronary artery without angina pectoris; M79.7 Fibromyalgia; F17.210 Nicotine dependence, cigarettes, uncomplicated; F03.90 Unspecified dementia, unspecified severity, without behavioral disturbance, psychotic disturbance, mood disturbance, and anxiety; F41.8 Other specified anxiety disorders; M19.90 Unspecified osteoarthritis, unspecified site; F41.0 Panic disorder [episodic paroxysmal anxiety]; Z79.899 Other long term (current) drug therapy; Z79.82 Long term (current) use of aspirin; Z80.3 Family history of malignant neoplasm of breast; Z88.0 Allergy status to penicillin; Z90.49 Acquired absence of other specified parts of digestive tract; Z90.89 Acquired absence of other organs; Z98.890 Other specified postprocedural states
CPT/HCPCS: 36415; 71045; 80053; 80061; 82565; 83735; 84484; 85025; 85610; 85730; 92973; 93005; 93306; 93458; 96365; 96376; 99291

== ENCOUNTER 2021-10-26 11:26 | Observation (INO) | payer OTHER ==
[2021-10-26 12:23] LABS: Basophils % (A) 1 %; Eosinophils # (A) 0.1 k/uL (0-0.7); Eosinophils % (A) 2 %; HCT 43.7 % (34.0-46.0); HGB 14.1 gm/dL (11.4-16.0); Lymphocytes % (A) 43 %; MCH 30.8 pg (25.0-35.0); MCHC 32.3 g/dL (31.0-37.0); MCV 95.2 fL (80.0-100.0); Mean Platelet Volume 7.7; Monocytes # (A) 0.3 k/uL (0-1.0); Monocytes % (A) 6 %; Neutrophils # (A) 2.2 k/uL (1.3-7.7); Neutrophils % (A) 46 %; Platelet Count 172 k/uL (150-450); RBC 4.59 m/uL (3.80-5.40); RDW 13.5 % (11.5-15.5); WBC 4.7 k/uL (3.8-10.6)
[2021-10-26] MEDS ORDERED: SODIUM CHLORIDE 0.9% 1,000 ML IV STA (12:26)
[2021-10-26] MEDS ORDERED: diphenhydrAMINE 50 MG/ML 1 ML VIAL IVP STA (12:26)
[2021-10-26] MEDS ORDERED: ASPIRIN 81 MG PO STA (12:26)
[2021-10-26] MEDS ORDERED: KETOROLAC 15 MG/ML 1 ML VIAL IVP STA (12:26)
[2021-10-26] MEDS ORDERED: ONDANSETRON 4 MG/2 ML VIAL IVP STA (12:26)
--- NOTE | 2021-10-26 12:30 | ED ---
General Adult HPI - General Chief complaint: Chest Pain Stated complaint: Chest pain Time Seen by Provider: 10/26/21 11:45 Source: patient, EMS Mode of arrival: EMS Limitations: no limitations - History of Present Illness Initial comments: Dictation was produced using [employer] dictation software. please excuse any grammatical, word or spelling errors. Chief Complaint: 55-year-old female presents to the emergency department for chest pain and headache History of Present Illness: Is 55-year-old female she's been under a lot of personal stress for the last several days. 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 Patient reports that over the last 4 days she's developed headache and chest pain. Patient has history of chest pain and myocardial infarction. She states that her symptoms are similar to symptoms she is had when she was diagnosed with a heart attack. She states that the pain is substernal. Nonradiating associated with nausea but no vomiting. No diaphoresis. Patient took several doses of nitroglycerin today with improvement of her symptoms. She decided cardiac EMS brought to the emergency room. She also has a mild occipital headache. She has history of he adaches in the past. Patient states that her headache seems to be similar though not as severe as headache she has experienced in the past. Patient denies any neurologic deficits. No numbness tingling paresthesias to the legs. No fevers. She is not vaccinated for coronavirus. Patient denies any cough or shortness of breath. EMS was called and gave the patient some antiemetics. The ROS documented in this emergency department record has been reviewed and confirmed by me. Those systems with pertinent positive or negative responses have been documented in the HPI. All other systems are other negative and/or noncontributory. PHYSICAL EXAM: General Impression: Alert and oriented x3, not in acute distress, speaking on her cell phone in no acute distress HEENT: Normocephalic atraumatic, extra-ocular movements intact, pupils equal and reactive to light bilaterally, mucous membranes moist. Cardiovascular: Heart regular rate and rhythm Chest: Able to complete full sentences, no retractions, no tachypnea Abdomen: abdomen soft, non-tender, non-distended, no organomegaly Musculoskeletal: Pulses present and equal in all extremities, no peripheral edema Motor: no focal deficits noted Neurological: CN II-XII grossly intact, no focal motor or sensory deficits noted Skin: Intact with no visualized rashes Psych: Normal affect and mood ED course: 65-year-old female presents to the emergency department for multiple complaints. She presents to the emergency department for chest pain concerning for acute coronary syndrome given that she has history of myocardial infarction her symptoms over the last 4 days remind her of when she was diagnosed with GA 1 year ago. She also has headache. She has history of headaches and reports that her headache is similar to headaches she is expressing the past. Vital signs upon arrival are within acceptable limits. EKG interpretation: Ventricular rate 65, normal sinus rhythm,. 146, QRS 82, QTc 434. No [place] prolongation, no QTC prolongation, no ST or T-wave changes noted. Repeat EKG performed 45 minutes later shows no dynamic changes. Laboratory evaluation obtained. CBC unremarkable. Coag panel is negative. Metabolic panel is negative. Troponin is negative. Patient is positive for COVID-19. Chest x-ray is nonacute. Patient reevaluated bedside at 1:20 PM. Patient is stable. She is not hypoxic and is well-appearing. Patient is a candidate for monoclonal antibodies for treatment of COVID-19. She is agreeable. Given the patient is having chest pain concerning for acute coronary syndrome she'll be admitted observation for cardiac monitoring and serial troponins. - Related Data Home Medications Medication Instructions Recorded Confirmed No Known Home Medications 10/26/21 10/26/21 Allergies Allergy/AdvReac Type Severity Reaction Status Date / Time Penicillins Allergy Severe Anaphylaxis Verified 10/26/21 13:17 Review of Systems ROS Statement: Those systems with pertinent positive or pertinent negative responses have been documented in the HPI. ROS Other: All systems not noted in ROS Statement are negative. Past Medical History Past Medical History: Asthma, Coronary Artery Disease (CAD), COPD, Fibromyalgia, Hypertension, Osteoarthritis (OA) Additional Past Medical History / Comment(s): GLAUCOMA History of Any Multi-Drug Resistant Organisms: None Reported Past Surgical History: Appendectomy, Breast Surgery, Tonsillectomy, Tubal Liga tion Additional Past Surgical History / Comment(s): Cervix removal Past Anesthesia/Blood Transfusion Reactions: No Reported Reaction Past Psychological History: Anxiety, Depression, Panic Disorder, PTSD, Schizophrenia Smoking Status: Current every day smoker Past Alcohol Use History: Occasional Past Drug Use History: None Reported - Past Family History Brother(s) Family Medical History: Cancer Mother Family Medical History: Cancer Additional Family Medical History / Comment(s): MOTHER HAD BREAST CANCER Father History Unknown: Yes General Exam Limitations: no limitations Course Vital Signs 10/26/21 10/26/21 11:29 12:15 Temperature 98.2 F Pulse Rate 67 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] Respiratory 18 Rate Blood Pressure 169/89 O2 Sat by Pulse 98 Oximetry Medical Decision Making - Lab Data Result diagrams: 10/26/21 12:03 10/26/21 12:03 Lab Results 10/26/21 10/26/21 10/26/21 Range/Units 12:03 12:03 12:03 WBC 4.7 (3.8-10.6) k/uL RBC 4.59 (3.80-5.40) m/uL Hgb 14.1 (11.4-16.0) gm/dL Hct 43.7 (34.0-46.0) % MCV 95.2 (80.0-100.0) fL MCH 30.8 (25.0-35.0) pg MCHC 32.3 (31.0-37.0) g/dL RDW 13.5 (11.5-15.5) % Plt Count 172 (150-450) k/uL MPV 7.7 Neutrophils % 46 % Lymphocytes % 43 % Monocytes % 6 % Eosinophils % 2 % Basophils % 1 % Neutrophils # 2.2 (1.3-7.7) k/uL Lymphocytes # 2.0 (1.0-4.8) k/uL Monocytes # 0.3 (0-1.0) k/uL Eosinophils # 0.1 (0-0.7) k/uL Basophils # 0.0 (0-0.2) k/uL PT 10.9 (9.0-12.0) sec INR 1.0 (<1.2) APTT 24.2 (22.0-30.0) sec Sodium 140 (137-145) mmol/L Potassium 3.8 (3.5-5.1) mmol/L Chloride 107 (98-107) mmol/L Carbon Dioxide 31 H (22-30) mmol/L Anion Gap 2 mmol/L BUN 14 (7-17) mg/dL Creatinine 0.58 (0.52-1.04) mg/dL Est GFR (CKD-EPI)AfAm >90 (>60 ml/min/1.73 sqM) Est GFR (CKD-EPI)NonAf >90 (>60 ml/min/1.73 sqM) Glucose 78 (74-99) mg/dL Calcium 8.4 (8.4-10.2) mg/dL Magnesium 2.1 (1.6-2.3) mg/dL Total Bilirubin 0.4 (0.2-1.3) mg/dL AST 24 (14-36) U/L ALT 18 (4-34) U/L Alkaline Phosphatase 55 (38-126) U/L Troponin I (0.000-0.034) ng/mL Total Protein 6.6 (6.3-8.2) g/dL Albumin 3.6 (3.5-5.0) g/dL Coronavirus (PCR) (Not Detectd) 10/26/21 10/26/21 Range/Units 12:03 12:12 WBC (3.8-10.6) k/uL RBC (3.80-5.40) m/uL Hgb (11.4-16.0) gm/dL Hct (34.0-46.0) % MCV (80.0-100.0) fL MCH (25.0-35.0) pg MCHC (31.0-37.0) g/dL RDW (11.5-15.5) % Plt Count (150-450) k/uL MPV Neutrophils % % Lymphocytes % % Monocytes % % Eosinophils % % Basophils % % Neutrophils # (1.3-7.7) k/uL Lymphocytes # (1.0-4.8) k/uL Monocytes # (0-1.0) k/uL Eosinophils # (0-0.7) k/uL Basophils # (0-0.2) k/uL PT (9.0-12.0) sec INR (<1.2) APTT (22.0-30.0) sec Sodium (137-145) mmol/L Potassium (3.5-5.1) mmol/L Chloride (98-107) mmol/L Carbon Dioxide (22-30) mmol/L Anion Gap mmol/L BUN (7-17) mg/dL Creatinine (0.52-1.04) mg/dL Est GFR (CKD-EPI)AfAm (>60 ml/min/1.73 sqM) Est GFR (CKD-EPI)NonAf (>60 ml/min/1.73 sqM) Glucose (74-99) mg/dL Calcium (8.4-10.2) mg/dL Magnesium (1.6-2.3) mg/dL Total Bilirubin (0.2-1.3) mg/dL AST (14-36) U/L ALT (4-34) U/L Alkaline Phosphatase (38-126) U/L Troponin I <0.012 (0.000-0.034) ng/mL Total Protein (6.3-8.2) g/dL Albumin (3.5-5.0) g/dL Coronavirus (PCR) Detected A (Not Detectd) Disposition Clinical Impression: Chest pain, COVID-19 Disposition: ADMITTED IP TO THIS [facility] Condition: Fair Referrals: Stepan Domingo DO [Primary Care Provider] - 1-2 days
[2021-10-26 12:31] LABS: ALT 18 U/L (4-34); AST 24 U/L (14-36); African American GFR (CKD) >90 (>60 ml/min/1.73 sqM); Albumin 3.6 g/dL (3.5-5.0); Alkaline Phosphatase 55 U/L (38-126); Anion Gap 2 mmol/L; Blood Urea Nitrogen 14 mg/dL (7-17); Calcium 8.4 mg/dL (8.4-10.2); Carbon Dioxide 31 mmol/L (22-30); Chloride 107 mmol/L (98-107); Glucose 78 mg/dL (74-99); Magnesium 2.1 mg/dL (1.6-2.3); Non-African American GFR(CKD) >90 (>60 ml/min/1.73 sqM); Potassium 3.8 mmol/L (3.5-5.1); Sodium 140 mmol/L (137-145); Total Bilirubin 0.4 mg/dL (0.2-1.3); Total Protein 6.6 g/dL (6.3-8.2)
--- NOTE | 2021-10-26 12:35 | XR ---
EXAMINATION TYPE: XR chest 1V portable DATE OF EXAM: 10/26/2021 COMPARISON: 10/31/2020 HISTORY: Chest pain TECHNIQUE: Single frontal view of the chest is obtained. FINDINGS: There is no focal air space opacity, pleural effusion, or pneumothorax seen. The cardiac silhouette size is within normal limits. The osseous structures are intact. Chronic deformity of th e left clavicle. No overt failure. Heart size normal. IMPRESSION: No acute process.
[2021-10-26 12:43] LABS: Partial Thromboplastin Time 24.2 sec (22.0-30.0); Prothrombin Time 10.9 sec (9.0-12.0)
[2021-10-26] MEDS ORDERED: NITROGLYCERIN SL TABS 0.4 MG TAB SUBLINGUAL PRN (13:18)
[2021-10-26] MEDS ORDERED: BAMLANIVIMAB (EUA) 700 MG, ETESEVIMAB (EUA) 1,400 MG in SODIUM CHLORIDE 0.9% 100 ML IVPB ONE (13:30)
[2021-10-26] MEDS ORDERED: SODIUM CHLORIDE 0.9% 50 ML IVPB ONE (13:30)
[2021-10-26] MEDS ORDERED: ALPRAZolam 0.25 MG TAB PO PRN (17:11)
[2021-10-26] MEDS ORDERED: HYDROcodone/APAP 5-325MG 1 EACH TAB PO PRN (17:11)
[2021-10-26] MEDS ORDERED: TEMAZEPAM 15 MG CAP PO PRN (17:11)
[2021-10-26] MEDS ORDERED: HYDROmorphone 0.5 MG/0.5 ML SYRINGE IVP PRN (17:11)
[2021-10-26] MEDS: PANTOPRAZOLE 40 MG/10 ML VIAL IVP SCH (17:48)
[2021-10-26 18:31] LABS: C Reactive Protein 0.6 mg/dL (<1.0)
--- NOTE | 2021-10-26 19:35 | HP ---
HISTORY AND PHYSICAL DATE OF SERVICE: 10/26/2021 CHIEF COMPLAINT: Chest pain. HISTORY OF PRESENT ILLNESS: This 55-year-old woman with a past medical history of multiple medical problems, including asthma, CAD, history of COPD, fibromyalgia, hypertension, DJD, anxiety, depression and PTSD, being followed by Dr. Stepan Domingo in the outpatient setting, was also complaining of chest pain which was felt in the lower part of the chest without much radiation. Patient also was found to be COVID-19 positive. The patient had a history of abdominal discomfort, also. Patient was admitted for further evaluation and treatment. The labs show normal CBC, and other labs are within normal limits. The patient is not hypoxemic. The patient also had a chest x-ray which I reviewed personally. It showed some minimal increased bronchovascular markings. There is no history of any fever, rigor or chills at this time. PAST MEDICAL HISTORY: History of asthma, CAD, COPD, fibromyalgia, hypertension, DJD, history of appendectomy, anxiety, depression, panic disorder, PTSD. HOME MEDICATIONS: List is not available. ALLERGIES: ASPIRIN, NITRO FAMILY HISTORY: History of breast cancer in the family. SOCIAL HISTORY: History of smoking, continued ongoing. Occasional alcohol intake. REVIEW OF SYSTEMS: ENT: No diminished hearing. No diminished vision. CARDIOVASCULAR SYSTEM: As mentioned earlier. RESPIRATORY SYSTEM: As mentioned earlier. GI: As mentioned earlier. : No dysuria. NERVOUS SYSTEM: No numbness, weakness. ALLERGY/IMMUNOLOGY: No asthma or hay fever. MUSCULOSKELETAL: As mentioned earlier. HEMATOLOGY/ONCOLOGY: No history of anemia. ENDOCRINE: No history of diabetes or hypothyroidism. CONSTITUTIONAL: As mentioned earlier. DERMATOLOGY: Negative. RHEUMATOLOGY: Negative. PSYCHIATRY: As mentioned earlier. PHYSICAL EXAMINATION: Patient alert and oriented x3. Pulse 63, blood pressure 160/92, respiration 18, temperature 98.2, pulse ox 98% on room air. HEENT: Conjunctivae normal. NECK: No jugular venous distention. CARDIOVASCULAR: S1, S2 muffled. RESPIRATION: Breath sounds diminished at the bases. A few scattered rhonchi. ABDOMEN: Soft, nontender. No mass palpable. LEGS: No edema. No swelling. NERVOUS SYSTEM: Higher functions as mentioned earlier. Moves all 4 limbs. No focal motor or sensory deficit. LYMPHATICS: No lymph node palpable in neck, axillae or groin. SKIN: No ulcer, rash, bleeding. JOINTS: No active deforming arthropathy. Skin: No scars normal respiration the bases scattered rhonchi. ABDOMEN: Soft, nontender. No mass. LEGS are no system action mentioned. Moves all muffed lymphatics none for skin no rash joints no active deforming arthropathy. LABS: CBC within normal limits. 24.2. Sodium 142, potassium 3.8, CO2 is . Other labs are noted. ASSESSMENT: 1. Chest pain for evaluation, possibly secondary to COVID-19. Rule out acute myocardial infarction and unstable angina. 2. Abdominal discomfort, possibly secondary to COVID-19. 3. Acute COVID-19 infection without any pneumonia or hypoxia. 4. History of asthma, chronic obstructive pulmonary disease. 5. History of coronary artery disease. 6. Fibromyalgia. 7. Hypertension. 8. History of degenerative joint disease. 9. History of glaucoma. 10.History of appendectomy. 11.History of breast surgery. 12.History of anxiety, depression, panic disorder, posttraumatic stress disorder, schizophrenia. 13.History of continued ongoing nicotine dependence. 14.FULL CODE. RECOMMENDATIONS AND DISCUSSION: In this 55-year-old woman who presented with multiple complex medical issues, we will monitor the patient closely, resume the home medications. Symptomatic treatment for pain will be provided. Cardiology consultation. Also recommend inflammatory markers of COVID-19. Home medications will be ordered once they are reconciled. Prognosis is guarded because of multiple complex medical issues. Further recommendations to follow. A copy of this dictation is being forwarded to Dr. Stepan Domingo, who is the primary physician. [id number] / TORRIEN: [id number] /
[2021-10-26] MEDS: HEPARIN SODIUM,PORCINE/PF 5,000 UNIT/0.5 ML SYRINGE SQ SCH (21:22)
[2021-10-27] MEDS ORDERED: guaiFENesin SYRUP 100MG/5ML 200 MG/10 ML CUP PO PRN (01:45)
[2021-10-27] MEDS ORDERED: ALBUTEROL HFA INHALER INHALATION PRN (01:45)
[2021-10-27 08:57] VITALS: RESP 18
[2021-10-27] MEDS ORDERED: ASPIRIN 325 MG TAB PO SCH (09:00)
[2021-10-27] MEDS: ALBUTEROL HFA INHALER INHALATION SCH ×3 (09:01→16:50)
[2021-10-27] MEDS: HEPARIN SODIUM,PORCINE/PF 5,000 UNIT/0.5 ML SYRINGE SQ SCH (10:37)
[2021-10-27] MEDS: PANTOPRAZOLE 40 MG/10 ML VIAL IVP SCH (10:37)
[2021-10-27] MEDS ORDERED: BENZONATATE 100 MG CAP PO PRN (11:47)
[2021-10-27 12:28] LABS: African American GFR (CKD) 114.6 (60.0-200.0); BUN/Creat Ratio 20.29 Ratio (12.00-20.00); Blood Urea Nitrogen 14.2 mg/dL (9.0-27.0); Calcium 8.5 mg/dL (8.7-10.3); Carbon Dioxide 17.4 mmol/L (20.0-27.5); Chloride 106 mmol/L (96-109); Chol/HDL Ratio 3.31 Ratio; Glucose 94 mg/dL (70-110); LDL Cholesterol,Calculated 62.9 mg/dL (0.0-131.0); Non-African American GFR(CKD) 98.9 (60.0-200.0); Potassium 4.5 mmol/L (3.5-5.5); Sodium 140 mmol/L (135-145)
--- NOTE | 2021-10-27 13:31 | P.CRDCN ---
History of Present Illness Consult date: 10/27/21 Consult reason: chest pain Chief complaint: Chest pain History of present illness: This is Te Rajput NP dictating a consult on this patient on behalf of Dr. Griffiths. The patient was interviewed and examined. HPI: [Patient is a pleasant 55-year-old female who initially presented to the hospital with complaints of chest pain and a headache. 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 She states that the chest pain and headache started over the last 4 days. She reports symptoms are similar to other symptoms she's had a past when she could have a heart attack. She reports the pain as being substernal, there is no radiating associated with it. Patient didn't take nitroglycerin before coming to the hospital. After the chest pain continued, she called EMS and was subsequently brought to the emergency department for evaluation. Pat ient was evaluated and found to have a normal EKG. CBC was unremarkable. Troponins are negative. The patient was found to be positive for COVID-19. Patient was subsequently admitted for cardiology workup secondary to history of acute coronary syndrome and related chest pains. She has a past medical history includes asthma, CAD, COPD, fibromyalgia, hypertension, osteoarthritis, and glaucoma. She has a past surgical history includes appendectomy, breast surgery, tonsillectomy, tubal ligation, and cervix removal. She reports she is occurring every day smoker, and denies current alcohol or illicit substance use. Exam was limited secondary to patient's COVID-19 infection. She does deny c hest pain and shortness of breath at this time.] ROS: [No fever, chills, or rigors] [no cough, phlegm, or expectoration] [no nausea, vomiting, or diarrhea] [no hematuria, dysuria] [no musculoskelatal complaints] [no strokes or seizures] [no skin lesions] EXAMINATION: Patient had limited interview/exam secondary to active Covid infection. REVIEW OF LABS, ECG & MEDICAL DATA: LABS: White count 4.7, hemoglobin 14.1, platelets 172, d-dimer 0.75, sodium 140, potassium 4.5, BUN 14.2, creatinine 0.7, magnesium 2.1, serial troponins less than 0.0123, triglycerides 118, cholesterol 124, LDL 62.9, HDL 37.5 EKG: Normal sinus rhythm IMAGING: Chest x-ray dated 10/26/2021 demonstrates no acute process VITALS: Temp 98.3, pulse 81, respirations 18, blood pressure 176/94, O2 saturation 95% on room air IMPRESSION: [Chest pain with history of HI Elevated d-dimer COVID-19 infection ] PLAN: [Start heparin drip Consider CTA, internal medicine to order No evidence of HI at this time Further recommendations pending patient's clinical course] Thank you for the consult and allowing us to participate in the care of this patient. The patient has been seen and evaluated. Plan of care has been reviewed and agreed upon by Dr. Griffiths. Past Medical History Past Medical History: Asthma, Coronary Artery Disease (CAD), COPD, Fibromyalgia, Hypertension, Osteoarthritis (OA) Additional Past Medical History / Comment(s): GLAUCOMA History of Any Multi-Drug Resistant Organisms: None Reported Past Surgical History: Appendectomy, Breast Surgery, Tonsillectomy, Tubal Ligation Additional Past Surgical History / Comment(s): Cervix removal Past Anesthesia/Blood Transfusion Reactions: No Reported Reaction Past Psychological History: Anxiety, Depression, Panic Disorder, PTSD, Schizophrenia Additional Psychological History / Comment(s): PATIENT'S DTR STATES PT TOLD HER 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 Pt. claims Schizophrenia was ruled out. Smoking Status: Current every day smoker Past Alcohol Use History: Occasional Additional Past Alcohol Use History / Comment(s): STARTED SMOKING AT AGE 19 SMOKES 10-15 CIG A DAY Past Drug Use History: None Reported Additional Drug Use History / Comment(s): hash, opium in past.// now smokes just marijuana - Past Family History Brother(s) Family Medical History: Cancer Mother Family Medical History: Cancer Additional Family Medical History / Comment(s): MOTHER HAD BREAST CANCER Father History Unknown: Yes Medications and Allergies Home Medications Medication Instructions Recorded Confirmed Type Ascorbic Acid [Vitamin C] 500 mg PO DAILY #20 tablet 10/27/21 Rx Cholecalciferol [Vitamin D3 (25 25 mcg PO DAILY #20 tab 10/27/21 Rx Mcg = 1000 Iu)] Zinc Gluconate [Zinc] 50 mg PO DAILY #30 tablet 10/27/21 Rx Allergies Allergy/AdvReac Type Severity Reaction Status Date / Time Penicillins Allergy Severe Anaphylaxis Verified 10/26/21 13:17 Physical Exam Vitals: Vital Signs Temp Pulse Pulse Pulse Resp BP BP 10/27/21 07:00 98.3 F 81 18 176/94 10/27/21 03:05 98.1 F 82 17 132/79 10/26/21 20:40 97.8 F 69 17 137/76 10/26/21 15:00 98.3 F 64 16 131/80 10/26/21 13:49 63 18 163/92 Pulse Ox 10/27/21 07:00 95 10/27/21 03:05 96 10/26/21 20:40 97 10/26/21 15:00 94 L 10/26/21 13:49 98 Intake and Output 10/26/21 10/27/21 10/27/21 22:59 06:59 14:59 Intake Total 180 Balance 180 Intake: Oral 180 Other: Voiding Method Toilet # Voids 1 Weight 72.575 kg Results 10/26/21 12:03 10/27/21 06:44 Cardiac Enzymes 10/26/21 10/26/21 10/26/21 Range/Units 12:03 16:14 19:29 Lactate Dehydrogenase 455 (313-618) U/L Troponin I <0.012 <0.012 (0.000-0.034) ng/mL Lipids 10/27/21 Range/Units 06:44 Triglycerides 118.00 (0.00-149.00) mg/dL Cholesterol 124.00 (0.00-200.00) mg/dL HDL Cholesterol 37.50 L (40.00-60.00) mg/dL Cholesterol/HDL Ratio 3.31 Ratio Comprehensive Metabolic Panel 10/27/21 Range/Units 06:44 Sodium 140 (135-145) mmol/L Potassium 4.5 (3.5-5.5) mmol/L Chloride 106 (96-109) mmol/L Carbon Dioxide 17.4 L (20.0-27.5) mmol/L BUN 14.2 (9.0-27.0) mg/dL Creatinine 0.7 (0.6-1.5) mg/dL Glucose 94 (70-110) mg/dL Calcium 8.5 L (8.7-10.3) mg/dL Current Medications Generic Name Dose Route Start Last Admin Trade Name Freq PRN Reason Stop Dose Admin Hydrocodone Bitart/Acetaminophen 1 each 10/26/21 17:11 Hydrocodone/Apap 5-325mg 1 Each Tab PO Q6HR PRN Pain Albuterol Sulfate 2 puff 10/27/21 08:00 10/27/21 12:56 Albuterol Hfa Inhaler INHALATION 2 puff RT-QID JUAN Administration Albuterol Sulfate 2 puff 10/27/21 01:45 10/27/21 01:56 Albuterol Hfa Inhaler INHALATION 2 puff RT-QID PRN Administration Shortness Of Breath Or Wheezing Alprazolam 0.25 mg 10/26/21 17:11 Alprazolam 0.25 Mg Tab PO TID PRN Anxiety Aspirin 325 mg 10/27/21 09:00 10/27/21 10:37 Aspirin 325 Mg Tab PO 325 mg DAILY JUAN Administration Benzonatate 200 mg 10/27/21 11:47 Benzonatate 100 Mg Cap PO TID PRN Cough Guaifenesin 200 mg 10/27/21 01:45 10/27/21 02:06 Guaifenesin Syrup 100mg/5ml 200 Mg/10 Ml Cup PO 200 mg Q6HR PRN Administration Cough Heparin Sodium (Porcine) 5,000 unit 10/26/21 21:00 10/27/21 10:37 Heparin Sodium,Porcine/Pf 5,000 Unit/0.5 Ml Syringe SQ Not Given Q12HR JUAN Hydromorphone HCl 0.5 mg 10/26/21 17:11 Hydromorphone 0.5 Mg/0.5 Ml Syringe IVP Q4HR PRN Severe Pain Nitroglycerin 0.4 mg 10/26/21 13:18 Nitroglycerin Sl Tabs 0.4 Mg Tab SUBLINGUAL Q5M PRN Chest Pain Pantoprazole Sodium 40 mg 10/26/21 17:15 10/27/21 10:37 Pantoprazole 40 Mg/10 Ml Vial IVP 40 mg DAILY JUAN Administration Temazepam 15 mg 10/26/21 17:11 Temazepam 15 Mg Cap PO HS PRN Insomnia Intake and Output 10/26/21 10/27/21 10/27/21 22:59 06:59 14:59 Intake Total 180 Balance 180 Intake: Oral 180 Other: Voiding Method Toilet # Voids 1 Weight 72.575 kg 10/26/21 12:03 10/27/21 06:44
[2021-10-27] MEDS ORDERED: HEPARIN SODIUM 1,000 UN/ML (10ML VL) IV PRN (13:33)
[2021-10-27] MEDS ORDERED: HEPARIN SODIUM 1,000 UN/ML (10ML VL) IV ONE (13:33)
[2021-10-27 13:40] LABS: Basophils # (A) 0.02 X 10*3/uL (0.00-0.10); Basophils % (A) 0.3 %; Eosinophils # (A) 0.14 X 10*3/uL (0.04-0.35); Eosinophils % (A) 2.4 %; HCT 42.3 % (37.2-46.3); HGB 13.5 g/dL (12.0-15.0); Lymphocytes # (A) 2.12 X 10*3/uL (0.90-5.00); Lymphocytes % (A) 35.9 %; MCH 30.4 pg (27.0-32.0); MCHC 31.9 g/dL (32.0-37.0); MCV 95.3 fL (80.0-97.0); Monocytes # (A) 0.47 X 10*3/uL (0.20-1.00); Neutrophils # (A) 3.14 X 10*3/uL (1.80-7.70); Neutrophils % (A) 53.2 %; Platelet Count 154 X 10*3/uL (140-440); RBC 4.44 X 10*6/uL (4.10-5.20)
[2021-10-27] MEDS ORDERED: HEPARIN SOD,PORK IN 0.45% NACL 25,000 UNIT in 0.45% NACL 1 250ML.BAG IV SCH (13:45)
--- NOTE | 2021-10-27 14:08 | CT ---
EXAMINATION TYPE: CT angio chest DATE OF EXAM: 10/27/2021 1:52 PM COMPARISON: None HISTORY: Shortness of breath, chest pains, elevated d-dimer CT DLP: 265.4 mGycm Automated exposure control for dose reduction was used. CONTRAST: CTA scan of the thorax is performed with IV Contrast, patient injected with 100, wasted 26 ml mL of I sovue 370, pulmonary embolism protocol FINDINGS: LUNGS: There is a bandlike the right base posteriorly scar or atelectasis There is an enlarged 15 mm right hilar lymph node congestion and prominent lymph node in the subcarin al region. Great vessels the chest are normal and no filling pulmonary artery circulation There is no pleural effusion, pleural thickening or pneumothorax. Limited scanning the upper abdomen reveals no gross abnormality. The osseous structures are intact. IMPRESSION: 1. No evidence of pulmonary embolism. 2. Right hilar and probable subcarinal lymphadenopathy. 3. Bandlike scar or focal atelectasis in the right lung base posteriorly
[2021-10-27 14:53] LABS: Basophils % (A) 1 %; Eosinophils # (A) 0.1 k/uL (0-0.7); Eosinophils % (A) 2 %; HCT 43.4 % (34.0-46.0); HGB 14.1 gm/dL (11.4-16.0); Lymphocytes # (A) 2.4 k/uL (1.0-4.8); Lymphocytes % (A) 45 %; MCHC 32.4 g/dL (31.0-37.0); MCV 95.7 fL (80.0-100.0); Mean Platelet Volume 7.7; Monocytes # (A) 0.4 k/uL (0-1.0); Monocytes % (A) 7 %; Neutrophils # (A) 2.3 k/uL (1.3-7.7); Neutrophils % (A) 43 %; Platelet Count 145 k/uL (150-450); RBC 4.54 m/uL (3.80-5.40); RDW 12.9 % (11.5-15.5); WBC 5.3 k/uL (3.8-10.6)
[2021-10-27 15:02] LABS: Partial Thromboplastin Time 23.5 sec (22.0-30.0); Prothrombin Time 10.6 sec (9.0-12.0)
[2021-10-27 15:52] VITALS: BP 177/97; PULSE 71; TEMP 98.2
--- NOTE | 2021-10-27 22:45 | DS ---
DISCHARGE SUMMARY DATE OF SERVICE: 10/27/2021 FINAL DIAGNOSES: 1. Chest pain, most likely secondary to COVID-19. Myocardial function ruled out. 2. Acute COVID-19 infection. 3. Right hilar and subcarinal lymphadenopathy. 4. Atelectasis. 5. Abdominal discomfort, possibly secondary to COVID-19. 6. Acute COVID-19 infection without any pneumonia or hypoxia. 7. History of asthma, chronic obstructive pulmonary disease. 8. History of coronary artery disease. 9. Fibromyalgia. 10.Hypertension. 11.History of degenerative joint disease. 12.History of glaucoma. 13.Appendectomy. 14.History of breast surgery. 15.History of anxiety, depression, panic disorder, posttraumatic stress disorder. 16.History of schizophrenia. 17.Continued ongoing nicotine dependence. 18.FULL CODE. DISCHARGE DISPOSITION: The patient will be discharged in stable condition with guarded prognosis. Cardiology saw the patient. HISTORY OF PRESENT ILLNESS: This 55-year-old woman with a past medical history of multiple medical problems was admitted with chest pain and COVID-19. Patient was monitored closely. D-dimer was slightly elevated. Chest CT did not show any acute abnormality. The patient had right hilar prominence. Recommend close followup in the outpatient setting. Cardiology saw the patient, recommended close followup in the office setting also. On exam, vitals are stable. CARDIOVASCULAR: S1, S2 muffled. ABDOMEN: Soft. NERVOUS SYSTEM: No focal deficit. DISCHARGE ADVICE AND MEDICATIONS: 1. Diet is cardiac. 2. Activity limited until followup. 3. Follow up with Dr. Stepan Domingo in one week. 4. Follow up with Cardiology as recommended. 5. Vitamin C 500 daily. 6. Vitamin D3 25 mcg p.o. daily. 7. Zinc 50 mg p.o. daily. 8. Outpatient CT scan may be repeated for the right hilar and mediastinal adenopathy with possibly a pulmonary consult as an outpatient. MMODL / IJN: [id number] /
== END 2021-10-27 16:39 | disposition home or self-care (01) ==
LOC: EC 11:26 → 6NMEDSUR 13:19
PROVIDERS: ADMIT Hospitalist; ATTEND Hospitalist
DX: R07.89 Other chest pain (principal); U07.1 COVID-19; R59.1 Generalized enlarged lymph nodes; J98.11 Atelectasis; R10.9 Unspecified abdominal pain; J44.9 Chronic obstructive pulmonary disease, unspecified; I25.10 Atherosclerotic heart disease of native coronary artery without angina pectoris; M79.7 Fibromyalgia; I10 Essential (primary) hypertension; M19.90 Unspecified osteoarthritis, unspecified site; H40.9 Unspecified glaucoma; Z90.49 Acquired absence of other specified parts of digestive tract; F41.9 Anxiety disorder, unspecified; F32.A Depression, unspecified; F43.10 Post-traumatic stress disorder, unspecified; F41.0 Panic disorder [episodic paroxysmal anxiety]; F20.9 Schizophrenia, unspecified; R79.89 Other specified abnormal findings of blood chemistry; R51.9 Headache, unspecified; R07.2 Precordial pain; R11.0 Nausea; I25.2 Old myocardial infarction; F17.210 Nicotine dependence, cigarettes, uncomplicated; Z71.3 Dietary counseling and surveillance; Z71.89 Other specified counseling; Z88.8 Allergy status to other drugs, medicaments and biological substances; Z88.6 Allergy status to analgesic agent; Z91.51 Personal history of suicidal behavior; Z88.0 Allergy status to penicillin; Z56.3 Stressful work schedule; Z53.29 Procedure and treatment not carried out because of patient's decision for other reasons; Z80.3 Family history of malignant neoplasm of breast
CPT/HCPCS: 96376; 96375 ×2; 96374; 99285; 36415; 94640 ×2; 93005; 85379; 80061; 80053; 80048; 85652; 82728; 83615; 83735; 84484; 85025 ×2; 85610 ×2; 85730 ×2; 86140; 87635; 71045; 71275; G0378 ×2; M0239; J1200; J2405; J1885; C9113 ×2; Q9967; J3490

== ENCOUNTER → 2022-02-11 | Outpatient (CLI) | payer OTHER ==
[2022-02-11 18:35] LABS: African American GFR (CKD) >90 (>60 ml/min/1.73 sqM); Blood Urea Nitrogen 18 mg/dL (7-17); Non-African American GFR(CKD) 84 (>60 ml/min/1.73 sqM)
--- NOTE | 2022-02-11 19:35 | CT ---
EXAMINATION TYPE: CT chest w con DATE OF EXAM: 02/11/2022 COMPARISON: 10/27/2021 HISTORY: enlarged lymphnodes CT DLP: 252.8 mGycm Automated exposure control for dose reduction was used. TECHNIQUE: CT scan of the chest is performed with IV Contrast, patient injected with 100 mL of Isovue 300. MIP Images are created on CT scanner and reviewed. 3D reconstructed images are created on an independent workstation and reviewed. FINDINGS: LUNGS: The lungs are grossly clear, there is no concerning parenchymal mass or nodule identified. T here is no pleural effusion or pneumothorax seen. The tracheobronchial tree is patent. Subsegmental consolidation right lower lobe and to a lesser extent left lower lobe persists most typical of scar o r atelectasis. Paraseptal emphysematous changes are seen involving the lung apices correlate coarse D . MEDIASTINUM: There is again noted a right hilar lymph node measuring a short axis of 1.5 cm. Subcarin al soft tissue thickening also suggestive of adenopathy measuring 1.2 cm. Left hilar lymph node noted measuring short axis I cm. Findings are stable. Coronary artery calcification noted. Heart size norm al. No sizable pericardial effusion. Aorta of normal caliber.. OTHER: Hypertrophic and degenerative changes of the spine. Stable subcentimeter nodularity left adre nal gland IMPRESSION: 1. COPD with stable hilar and subcarinal lymphadenopathy unchanged from prior exam. Findings nonspeci fic correlate with PET scan as clinically warranted. 2. Indeterminate left adrenal nodule most likely in the basis of incidental adenoma 3. COPD with coronary artery calcification.
== END | disposition home or self-care (01) ==
LOC: RADCTMAIN 17:53
PROVIDERS: ATTEND Family Medicine
DX: R59.0 Localized enlarged lymph nodes (principal); J44.9 Chronic obstructive pulmonary disease, unspecified; I25.10 Atherosclerotic heart disease of native coronary artery without angina pectoris
CPT/HCPCS: 82565; 84520; 71260; 36415; Q9967

== ENCOUNTER 2022-04-11 10:05 | Emergency (ER) | payer OTHER ==
[2022-04-11 10:13] VITALS: BP 174/94; RESP 16; TEMP 97.8
[2022-04-11 10:19] VITALS: PULSE 67
--- NOTE | 2022-04-11 10:40 | ED ---
General Adult HPI - General Chief complaint: Chest Pain Stated complaint: Chest Pain Time Seen by Provider: 04/11/22 10:07 Source: patient, EMS Mode of arrival: EMS Limitations: no limitations - History of Present Illness Initial comments: Patient is a 56-year-old female presents the emergency room with complaints of left-sided chest pain that is worse with cough. Unfortunately she does have a history of coronary artery disease and has been noncompliant with her prescribed medications. She is prescribed multiple medications but is currently only taking Trilogy inhaler, albuterol inhaler nitroglycerin as needed along with lisinopril hydrochlorothiazide which she ran out of. She reports that she was working at her desk today when she started to develop left-sided chest pain. She states now that she is just having a dull ache that is worse when she coughs. She denies any changes in her chest pain with activity. She denies any worsening of baseline's shortness of breath. She denies any dizziness, orthopnea, peripheral edema, headaches, or diaphoresis. She complains of a chronic cough that has been worse since recently completing PFTs at her pulmonary office. Her daughter also reports that she has been exposed to COVID recently. She denies any production to her cough. She is currently still smoking approximately 1 pack per day. In addition to her COPD, CAD and hypertension history she has a history fibromyalgia and arthritis. She denies any other complaints or concerns at this time. - Related Data Home Medications Medication Instructions Recorded Confirmed Albuterol Sulfate [Proair Hfa] 2 puff INHALATION RT-Q4H PRN 04/11/22 04/11/22 Fluticasone/Umeclidin/Vilanter 1 puff INHALATION RT-DAILY 04/11/22 04/11/22 [Trelegy Ellipta 200-62.5-25] Lisinopril-Hctz 20-12.5 mg 1 tab PO DAILY 04/11/22 04/11/22 [Zestoretic 20-12.5] Nitroglycerin Sl Tabs [Nitrostat] 0.4 mg SUBLINGUAL Q5M PRN 04/11/22 04/11/22 Previous Rx's Medication Instructions Recorded Benzonatate [Tessalon Perle] 200 mg PO Q8HR 10 Days #30 capsule 04/11/22 predniSONE [Deltasone] 20 mg PO DIRECTED #16 tab 04/11/22 Allergies Allergy/AdvReac Type Severity Reaction Status Date / Time Penicillins Allergy Severe Anaphylaxis Verified 04/11/22 11:37 Review of Systems ROS Statement: Those systems with pertinent positive or pertinent negative responses have been documented in the HPI. ROS Other: All systems not noted in ROS Statement are negative. Past Medical History Past Medical History: Asthma, Coronary Artery Disease (CAD), COPD, Fibromyalgia, Hypertension, Osteoarthritis (OA) Additional Past Medical History / Comment(s): GLAUCOMA History of Any Multi-Drug Resistant Organisms: None Reported Past Surgical History: Appendectomy, Breast Surgery, Tonsillectomy, Tubal Ligation Additional Past Surgical History / Comment(s): Cervix removal Past Anesthesia/Blood Transfusion Reactions: No Reported Reaction Past Psychological History: Anxiety, Depression, Panic Disorder, PTSD, Schizophrenia Smoking Status: Current every day smoker Past Alcohol Use History: Occasional Past Drug Use History: None Reported - Past Family History Brother(s) Family Medical History: Cancer Mother Family Medical History: Cancer Additional Family Medical History / Comment(s): MOTHER HAD BREAST CANCER Father History Unknown: Yes General Exam Limitations: no limitations General appearance: alert, in no apparent distress Head exam: Present: atraumatic, normocephalic, normal inspection Eye exam: Present: normal appearance, PERRL, EOMI. Absent: scleral icterus, conjunctival injection, periorbital swelling ENT exam: Present: normal exam, mucous membranes moist Neck exam: Present: normal inspection. Absent: tenderness, meningismus, lymphadenopathy Respiratory exam: Present: wheezes, decreased breath sounds. Absent: respiratory distress, rales, accessory muscle use Cardiovascular Exam: Present: regular rate, normal rhythm, normal heart sounds. Absent: systolic murmur, diastolic murmur, rubs, gallop, clicks GI/Abdominal exam: Present: soft, normal bowel sounds. Absent: distended, tenderness, guarding, rebound, rigid Extremities exam: Present: normal inspection, full ROM, normal capillary refill. Absent: tenderness, pedal edema, joint swelling, calf tenderness Back exam: Present: normal inspection Neurological exam: Present: alert, oriented X3, CN II-XII intact Psychiatric exam: Present: normal affect, normal mood Skin exam: Present: warm, dry, intact, normal color. Absent: rash Course Vital Signs 04/11/22 04/11/22 10:07 10:13 Temperature 97.8 F Pulse Rate 68 Pulse Rate [ 67 Inventory Representative ] Respiratory 16 Rate Blood Pressure 174/94 O2 Sat by Pulse 98 Oximetry Medical Decision Making - Medical Decision Making Atypical chest pain with CAD history will work up chest pain EKG shows sinus rhythm will trend troponins. High concern for coated considering chest pain associated with cough and recent worsening of cough after cold exposure. We'll check a lipid and influenza swabs. We'll also check chest x-ray. Will check CMP and CBC in addition to clotting times. Blood pressure slightly elevated but no need for medication at this time. Will monitor. CBC and CMP normal. Troponin negative. Chest x-ray negative for acute pulmonary processes. Coumadin influenza swabs negative. Chest pain description continues to remain atypical and she is chest pain-free. Will discharge home on treatment for COPD with steroids along with Dustin Ignacio advised that smoking sensation and follow-up with her insurance compliance analyst and stock crane operator are encouraged. Case discussed with Dr. Flor - Lab Data Result diagrams: 04/11/22 10:41 04/11/22 10:41 Lab Results 04/11/22 04/11/22 04/11/22 Range/Units 10:41 10:41 10:41 WBC 9.3 (3.8-10.6) k/uL RBC 4.65 (3.80-5.40) m/uL Hgb 14.8 (11.4-16.0) gm/dL Hct 43.8 (34.0-46.0) % MCV 94.2 (80.0-100.0) fL MCH 31.8 (25.0-35.0) pg MCHC 33.8 (31.0-37.0) g/dL RDW 13.5 (11.5-15.5) % Plt Count 321 (150-450) k/uL MPV 7.7 Neutrophils % 56 % Lymphocytes % 34 % Monocytes % 5 % Eosinophils % 3 % Basophils % 1 % Neutrophils # 5.2 (1.3-7.7) k/uL Lymphocytes # 3.1 (1.0-4.8) k/uL Monocytes # 0.4 (0-1.0) k/uL Eosinophils # 0.3 (0-0.7) k/uL Basophils # 0.1 (0-0.2) k/uL PT 11.3 (9.0-12.0) sec INR 1.0 (<1.2) APTT 21.8 L (22.0-30.0) sec Sodium 139 (137-145) mmol/L Potassium 4.1 (3.5-5.1) mmol/L Chloride 104 (98-107) mmol/L Carbon Dioxide 28 (22-30) mmol/L Anion Gap 7 mmol/L BUN 12 (7-17) mg/dL Creatinine 0.67 (0.52-1.04) mg/dL Est GFR (CKD-EPI)AfAm >90 (>60 ml/min/1.73 sqM) Est GFR (CKD-EPI)NonAf >90 (>60 ml/min/1.73 sqM) Glucose 90 (74-99) mg/dL Calcium 9.3 (8.4-10.2) mg/dL Magnesium 2.2 (1.6-2.3) mg/dL Total Bilirubin 0.4 (0.2-1.3) mg/dL AST 20 (14-36) U/L ALT 18 (4-34) U/L Alkaline Phosphatase 96 (38-126) U/L Troponin I (0.000-0.034) ng/mL Total Protein 7.6 (6.3-8.2) g/dL Albumin 4.4 (3.5-5.0) g/dL Coronavirus (PCR) (Not Detectd) Influenza Type A RNA (Not Detectd) Influenza Type B (PCR) (Not Detectd) 04/11/22 04/11/22 04/11/22 Range/Units 10:41 10:54 10:54 WBC (3.8-10.6) k/uL RBC (3.80-5.40) m/uL Hgb (11.4-16.0) gm/dL Hct (34.0-46.0) % MCV (80.0-100.0) fL MCH (25.0-35.0) pg MCHC (31.0-37.0) g/dL RDW (11.5-15.5) % Plt Count (150-450) k/uL MPV Neutrophils % % Lymphocytes % % Monocytes % % Eosinophils % % Basophils % % Neutrophils # (1.3-7.7) k/uL Lymphocytes # (1.0-4.8) k/uL Monocytes # (0-1.0) k/uL Eosinophils # (0-0.7) k/uL Basophils # (0-0.2) k/uL PT (9.0-12.0) sec INR (<1.2) APTT (22.0-30.0) sec Sodium (137-145) mmol/L Potassium (3.5-5.1) mmol/L Chloride (98-107) mmol/L Carbon Dioxide (22-30) mmol/L Anion Gap mmol/L BUN (7-17) mg/dL Creatinine (0.52-1.04) mg/dL Est GFR (CKD-EPI)AfAm (>60 ml/min/1.73 sqM) Est GFR (CKD-EPI)NonAf (>60 ml/min/1.73 sqM) Glucose (74-99) mg/dL Calcium (8.4-10.2) mg/dL Magnesium (1.6-2.3) mg/dL Total Bilirubin (0.2-1.3) mg/dL AST (14-36) U/L ALT (4-34) U/L Alkaline Phosphatase (38-126) U/L Troponin I <0.012 (0.000-0.034) ng/mL Total Protein (6.3-8.2) g/dL Albumin (3.5-5.0) g/dL Coronavirus (PCR) Not Detected (Not Detectd) Influenza Type A RNA Not Detected (Not Detectd) Influenza Type B (PCR) Not Detected (Not Detectd) - EKG Data EKG Comments: Sinus rhythm, ventricular rate 66 bpm, VA interval 170 ms, QRS duration 83 ms, QT/QTC 421/434 ms, PRT axes 72, 66, 70 - Radiology Data Radiology results: report reviewed, image reviewed Chest x-ray consistent with COPD hyperinflation noted. No acute cardiopulmonary processes. Disposition Clinical Impression: Costochondritis, COPD with exacerbation Disposition: HOME SELF-CARE Condition: Stable Instructions (If sedation given, give patient instructions): Costochondritis (ED), Chest Pain (ED), COPD (Chronic Obstructive Pulmonary Disease) (ED), How to Stop Smoking (ED) Additional Instructions: Please complete steroid course as prescribed. Utilize Tessalon Perles as needed for cough. Continue to utilize inhalers as prescribed by pulmonary. Smoking cessation encouraged. Please follow-up with your stock crane operator and insurance compliance analyst along with your primary care provider. Please return to the Emergency Department if symptoms worsen or any other concerns. Prescriptions: predniSONE [Deltasone] 20 mg PO DIRECTED #16 tab Benzonatate [Tessalon Perle] 200 mg PO Q8HR 10 Days #30 capsule Is patient prescribed a controlled substance at d/c from ED?: No Referrals: Stepan Domingo DO [Primary Care Provider] - 1-2 days Time of Disposition: 12:28
[2022-04-11 10:52] LABS: Basophils # (A) 0.1 k/uL (0-0.2); Basophils % (A) 1 %; Eosinophils # (A) 0.3 k/uL (0-0.7); Eosinophils % (A) 3 %; HCT 43.8 % (34.0-46.0); HGB 14.8 gm/dL (11.4-16.0); Lymphocytes # (A) 3.1 k/uL (1.0-4.8); Lymphocytes % (A) 34 %; MCH 31.8 pg (25.0-35.0); MCHC 33.8 g/dL (31.0-37.0); MCV 94.2 fL (80.0-100.0); Mean Platelet Volume 7.7; Monocytes # (A) 0.4 k/uL (0-1.0); Monocytes % (A) 5 %; Neutrophils # (A) 5.2 k/uL (1.3-7.7); Neutrophils % (A) 56 %; Platelet Count 321 k/uL (150-450); RBC 4.65 m/uL (3.80-5.40); RDW 13.5 % (11.5-15.5); WBC 9.3 k/uL (3.8-10.6)
[2022-04-11 11:02] LABS: Prothrombin Time 11.3 sec (9.0-12.0)
[2022-04-11 11:07] LABS: ALT 18 U/L (4-34); AST 20 U/L (14-36); African American GFR (CKD) >90 (>60 ml/min/1.73 sqM); Albumin 4.4 g/dL (3.5-5.0); Alkaline Phosphatase 96 U/L (38-126); Anion Gap 7 mmol/L; Blood Urea Nitrogen 12 mg/dL (7-17); Calcium 9.3 mg/dL (8.4-10.2); Carbon Dioxide 28 mmol/L (22-30); Chloride 104 mmol/L (98-107); Glucose 90 mg/dL (74-99); Magnesium 2.2 mg/dL (1.6-2.3); Non-African American GFR(CKD) >90 (>60 ml/min/1.73 sqM); Potassium 4.1 mmol/L (3.5-5.1); Sodium 139 mmol/L (137-145); Total Bilirubin 0.4 mg/dL (0.2-1.3); Total Protein 7.6 g/dL (6.3-8.2)
[2022-04-11 11:25] LABS: Partial Thromboplastin Time 21.8 sec (22.0-30.0)
--- NOTE | 2022-04-11 11:37 | XR ---
EXAMINATION TYPE: XR chest 2V DATE OF EXAM: 04/11/2022 COMPARISON: 10/26/21 HISTORY: Shortness of breath TECHNIQUE: Frontal and lateral views of the chest are obtained. FINDINGS: Scattered senescent parenchymal changes noted. Hyperinflation compatible with COPD. No evidence for infiltrate. No evidence for atelectasis. Heart size is stable. Mediastinal structures are stable and grossly unremarkable. No evidence for hilar prominence. Degenerative changes dorsal spine. IMPRESSION: 1. No evidence for acute pulmonary disease.
== END 2022-04-11 12:47 | disposition home or self-care (01) ==
LOC: EC 10:05
DX: J45.901 Unspecified asthma with (acute) exacerbation (principal); M94.0 Chondrocostal junction syndrome [Tietze]; J44.9 Chronic obstructive pulmonary disease, unspecified; I10 Essential (primary) hypertension; F17.200 Nicotine dependence, unspecified, uncomplicated; Z20.822 Contact with and (suspected) exposure to COVID-19; Z88.0 Allergy status to penicillin
CPT/HCPCS: 36415; 71046; 80053; 83735; 84484; 85025; 85610; 85730; 87502; 87635

== ENCOUNTER 2022-04-15 19:25 | Inpatient (IN) | payer OTHER ==
[~2022-04-15 19:25] MED LIST changes: -LIDOCAINE 1% 20 ML VIAL (10MG/ML) FOR IV START INTRADERMA PRN; +fentaNYL (PF) 50 MCG/ML 2 ML AMP IV ONE
[2022-04-15] MEDS ORDERED: fentaNYL (PF) 50 MCG/ML 2 ML AMP IVP STA (19:47)
[2022-04-15] MEDS ORDERED: HEPARIN SODIUM 1,000 UN/ML (10ML VL) IV ONE ×2 (19:47→20:34)
[2022-04-15] MEDS ORDERED: ASPIRIN 81 MG PO STA (19:47)
--- NOTE | 2022-04-15 19:47 | ED ---
Chest Pain HPI - General Chief Complaint: Chest Pain Stated Complaint: Chest Pain, Heart History Time Seen by Provider: 04/15/22 19:30 Source: patient Mode of arrival: ambulatory Limitations: no limitations - History of Present Illness Initial Comments: 56-year-old female with past medical history of COPD, hypertension, coronary artery disease presents to the emergency room with chest pain. Started around 6:30 PM. She took 3 nitro without any improvement. Located over the left anterior chest wall with radiation into the left jaw and arm. Does have a history of coronary artery disease. Follows with Dr. Hull. Has one stent in her heart. She has "5 other vessel that they're currently watching for intervention." Denies any recent fevers, chills or cough. Denies shortness of breath. No ripping or tearing station to her back. No other alleviating, precipitating or modifying factors - Related Data Home Medications Medication Instructions Recorded Confirmed Albuterol Sulfate [Proair Hfa] 2 puff INHALATION RT-Q4H PRN 04/11/22 04/15/22 Fluticasone/Umeclidin/Vilanter 1 puff INHALATION RT-DAILY 04/11/22 04/15/22 [Trelegy Ellipta 200-62.5-25] Previous Rx's Medication Instructions Recorded Aspirin 81 mg PO DAILY #30 tab 04/17/22 Atorvastatin [Lipitor] 80 mg PO HS #90 tab 04/17/22 Famotidine [Pepcid] 20 mg PO HS #30 tab 04/17/22 Metoprolol Tartrate [Lopressor] 25 mg PO BID 3 Days #60 tab 04/17/22 Nitroglycerin Sl Tabs [Nitrostat] 0.4 mg SUBLINGUAL Q5M PRN #25 tab 04/17/22 Prasugrel [Effient] 10 mg PO DAILY #90 tab 04/17/22 Allergies Allergy/AdvReac Type Severity Reaction Status Date / Time Penicillins Allergy Severe Anaphylaxis Verified 04/15/22 19:50 Review of Systems ROS Statement: Those systems with pertinent positive or pertinent negative responses have been documented in the HPI. ROS Other: All systems not noted in ROS Statement are negative. EKG Findings - EKG Comments: EKG Findings:: EKG demonstrates sinus rhythm with a rate of 74. MI interval 162. QRS 109. QTC of 425. ST segment elevation in 23, aVF. Deep depression in V1 through V3. ST elevation in V4 through V6. Past Medical History Past Medical History: Asthma, Coronary Artery Disease (CAD), COPD, Fibromyalgia, Hypertension, Osteoarthritis (OA) Additional Past Medical History / Comment(s): GLAUCOMA History of Any Multi-Drug Resistant Organisms: None Reported Past Surgical History: Appendectomy, Breast Surgery, Tonsillectomy, Tubal Ligation Additional Past Surgical History / Comment(s): Cervix removal Past Anesthesia/Blood Transfusion Reactions: No Reported Reaction Past Psychological History: Anxiety, Depression, Panic Disorder, PTSD, Schizophrenia Smoking Status: Current every day smoker Past Alcohol Use History: Occasional Past Drug Use History: None Reported - Past Family History Brother(s) Family Medical History: Cancer Mother Family Medical History: Cancer Additional Family Medical History / Comment(s): MOTHER HAD BREAST CANCER Father History Unknown: Yes General Exam Limitations: no limitations General appearance: alert, anxious, in distress, other (clutching chest) Head exam: Present: atraumatic, normocephalic, normal inspection Eye exam: Present: normal appearance, PERRL, EOMI. Absent: scleral icterus, conjunctival injection, periorbital swelling ENT exam: Present: normal exam, mucous membranes moist Neck exam: Present: normal inspection. Absent: tenderness, meningismus, lymphadenopathy Respiratory exam: Present: normal lung sounds bilaterally. Absent: respiratory distress, wheezes, rales, rhonchi, stridor Cardiovascular Exam: Present: regular rate, normal rhythm, normal heart sounds. Absent: systolic murmur, diastolic murmur, rubs, gallop, clicks GI/Abdominal exam: Present: soft, normal bowel sounds. Absent: distended, tenderness, guarding, rebound, rigid Extremities exam: Present: normal inspection, full ROM, normal capillary refill. Absent: tenderness, pedal edema, joint swelling, calf tenderness Back exam: Present: normal inspection Neurological exam: Present: alert, oriented X3, CN II-XII intact Psychiatric exam: Present: normal affect, normal mood Skin exam: Present: warm, dry, intact, normal color. Absent: rash Course Vital Signs 04/15/22 04/15/22 04/15/22 19:27 19:35 19:43 Temperature 98.0 F Pulse Rate 84 72 73 Respiratory 16 18 20 Rate Blood Pressure 98/64 97/81 97/81 O2 Sat by Pulse 95 98 Oximetry 04/15/22 04/15/22 19:45 20:05 Temperature Pulse Rate 74 78 Respiratory 18 18 Rate Blood Pressure 101/77 131/88 O2 Sat by Pulse 95 96 Oximetry Chest Pain MDM - MDM Upon arrival patient is placed into room 2. History and physical exam was performed. 12-lead EKG was obtained which demonstrates acute ST segment elevation. STEMI is activated. I spoke with Dr. Lombardo in regards to the patient's EKG. Patient is given a full dose aspirin, heparin and fentanyl for pain. Fluid boluses hung. Patient taken to [facility] in stable condition. Called and spoke with Roger from [facility] who will admit the patient Critical Care Time Critical Care Time: Yes Critical Care Time: 32 minutes Disposition Clinical Impression: STEMI (ST elevation myocardial infarction), Chest pain Disposition: ADMITTED IP TO THIS [facility] Condition: Serious Is patient prescribed a controlled substance at d/c from ED?: No Time of Disposition: 20:01 Decision to Admit Reason: Admit from EC Decision Date: 04/15/22 Decision Time: 20:01
[2022-04-15] MEDS ORDERED: SODIUM CHLORIDE 0.9% 1,000 ML IV ONE ×2 (19:49→20:26)
[2022-04-15 19:58] LABS: Basophils # (A) 0.2 k/uL (0-0.2); Basophils % (A) 1 %; Eosinophils # (A) 0.1 k/uL (0-0.7); Eosinophils % (A) 1 %; HCT 42.8 % (34.0-46.0); HGB 14.5 gm/dL (11.4-16.0); Lymphocytes # (A) 4.9 k/uL (1.0-4.8); Lymphocytes % (A) 25 %; MCH 31.5 pg (25.0-35.0); MCHC 33.8 g/dL (31.0-37.0); MCV 93.4 fL (80.0-100.0); Mean Platelet Volume 7.2; Monocytes % (A) 5 %; Neutrophils % (A) 67 %; Platelet Count 378 k/uL (150-450); RBC 4.59 m/uL (3.80-5.40); RDW 13.3 % (11.5-15.5); WBC 19.4 k/uL (3.8-10.6)
[2022-04-15] MEDS ORDERED: NALOXONE 0.4 MG/ML 1 ML VIAL IV PRN (20:01)
[2022-04-15] MEDS ORDERED: fentaNYL (PF) 50 MCG/ML 2 ML AMP ONE (20:07)
[2022-04-15] MEDS ORDERED: VERAPAMIL 2.5 MG/ML 2 ML AMP ONE (20:07)
[2022-04-15] MEDS ORDERED: HEPARIN SODIUM 1,000 UN/ML (10ML VL) ONE (20:07)
[2022-04-15 20:10] LABS: Albumin 4.4 g/dL (3.5-5.0); Calcium 9.5 mg/dL (8.4-10.2); Magnesium 2.2 mg/dL (1.6-2.3); Potassium 3.7 mmol/L (3.5-5.1); Total Bilirubin 0.4 mg/dL (0.2-1.3); Total Protein 7.4 g/dL (6.3-8.2)
--- NOTE | 2022-04-15 20:12 | XR ---
EXAMINATION TYPE: XR chest 1V portable DATE OF EXAM: 04/15/2022 COMPARISON: 04/11/2022 HISTORY: Chest pain TECHNIQUE: FINDINGS: Heart is normal. Lungs are clear. Diaphragm is normal. Bony thorax is intact. IMPRESSION: Normal chest. No change.
[2022-04-15] MEDS ORDERED: fentaNYL (PF) 50 MCG/ML 2 ML AMP IV ONE (20:18)
[2022-04-15] MEDS ORDERED: LIDOCAINE 1% INJ 10MG/ML (5 ML VIAL-PF) SQ ONE (20:20)
[2022-04-15 20:21] LABS: Partial Thromboplastin Time 20.1 sec (22.0-30.0)
[2022-04-15] MEDS ORDERED: MIDAZOLAM 2 MG/2 ML VIAL IV ONE ×2 (20:26)
[2022-04-15] MEDS ORDERED: LIDOCAINE 1% INJ 10MG/ML (30 ML VIAL-PF) SQ ONE (20:30)
[2022-04-15] MEDS ORDERED: PRASUGREL 10 MG TAB ONE (20:33)
[2022-04-15] MEDS ORDERED: PRASUGREL 10 MG TAB PO ONE (20:33)
[2022-04-15] MEDS ORDERED: ATROPINE SULFATE 0.1 MG/ML 10ML SYRINGE IV ONE (20:40)
[2022-04-15] MEDS ORDERED: NITROGLYCERIN 1000MCG/10ML SYRINGE INTRACORON ONE (20:51)
[2022-04-15] MEDS ORDERED: METOPROLOL TARTRATE 5 MG/5 ML VIAL IVP ONE (21:03)
[2022-04-15] MEDS: METOPROLOL TARTRATE 5 MG/5 ML VIAL IVP ONE ×2 (21:06→21:12)
[2022-04-15] MEDS ORDERED: IOPAMIDOL-370 125ML BTL INJ ONE (21:11)
[2022-04-15] MEDS ORDERED: ZOLPIDEM 5 MG TAB PO PRN (21:14)
[2022-04-15] MEDS ORDERED: RX INFO: IV CONTRAST WAS GIVEN 1 EACH MISC MISCELLANE PRN (21:14)
[2022-04-15] MEDS ORDERED: ATROPINE SULFATE 0.1 MG/ML 10ML SYRINGE IV PRN (21:14)
[2022-04-15] MEDS ORDERED: NITROGLYCERIN SL TABS 0.4 MG TAB SUBLINGUAL PRN (21:14)
[2022-04-15] MEDS ORDERED: MAG HYDROX/AL HYDROX/SIMETH 30 ML CUP PO PRN (21:14)
[2022-04-15] MEDS ORDERED: SODIUM CHLORIDE 0.9% 1,000 ML in EMPTY BAG 1 BAG IV SCH (21:15)
--- NOTE | 2022-04-15 21:26 | P.CRDCN ---
History of Present Illness Consult date: 04/15/22 History of present illness: History of Present Illness: The patient is a 56-year-old female with a known history of CAD status post stenting of the RCA in 2020 with moderate disease in the left circumflex and the LAD who presented to the emergency room with acute chest discomfort and ST segment involving the inferior leads with ST segment depression anteriorly. The discomfort started about 2 hours prior to presentation, at rest. The patient has a known history of chronic tobacco use with significant COPD, followed by Dr. Rajan, history of hypertension. She has a history of noncompliance with her medication, was not taking aspirin dictation. She has chronic dyspnea on exertion, no dizziness or palpitations, no PND orthopnea or peripheral edema. According to her she has been having frequent episodes of chest discomfort and has used nitroglycerin at home although she was seen in the hospital in the past with no evidence of acute coronary syndrome. Her echocardiogram done in October 2020 revealed an ejection fraction of 50-55% with mild to moderate mitral regurgitation. Medications: At home she was supposed to be on fluticasone, lisinopril HCT 20/25 in addition to tapering dose of prednisone. Review of Systems: Respiratory: She has a history of significant COPD with wheezing and dyspnea on exertion as well as cough GI: No nausea or vomiting . No history of peptic ulcer disease. No recent GI bleed. : No hematuria or dysuria. Nervous System: No stroke or seizure. Physical Examination: 56-year-old female, in moderate discomfort evaluated in the cardiac catheterization laboratory having chest pain ,Blood pressure 100/70, Heart rate 70 Head: Normocephalic. Eyes: Sclerae nonicteric. Neck: Good carotid upstroke, no bruit, no jugular venous distention. Lungs: Clear to auscultation anteriorly. Heart: Regular rate and rhythm, S1-S2, no S3, no rub. Systolic ejection murmur. Abdomen: Soft nontender, positive bowel sounds no organomegaly. Extremities: No edema, intact distal pulses. Labs: Hemoglobin 14.5, white blood cell 19.4, BUN 23, creatinine 1.07, troponin 0.784, NT proBNP 2910 EKG: Sinus mechanism with ST segment elevation in the inferior leads and ST depression anteriorly Impression: 1. Acute ST segment elevation myocardial infarction in the inferior wall 2. Chronic tobacco abuse with COPD 3. Hypertension 4. Noncompliance Plan: 1. Proceed with emergency cardiac catheterization, the procedure as well as the risks and the complications were discussed with the patient who was in full understanding and agreement 2. Obtain an echocardiogram with Doppler 3. And follow serial enzymes 4. I discussed with the patient the importance of compliance 5. Thank you for this consult we will follow with you Past Medical History Past Medical History: Asthma, Coronary Artery Disease (CAD), COPD, Fibromyalgia, Hypertension, Osteoarthritis (OA) Additional Past Medical History / Comment(s): GLAUCOMA History of Any Multi-Drug Resistant Organisms: None Reported Past Surgical History: Appendectomy, Breast Surgery, Tonsillectomy, Tubal Ligation Additional Past Surgical History / Comment(s): Cervix removal Past Anesthesia/Blood Transfusion Reactions: No Reported Reaction Past Psychological History: Anxiety, Depression, Panic Disorder, PTSD, Schizophrenia Smoking Status: Current every day smoker Past Alcohol Use History: Occasional Past Drug Use History: None Reported - Past Family History Brother(s) Family Medical History: Cancer Mother Family Medical History: Cancer Additional Family Medical History / Comment(s): MOTHER HAD BREAST CANCER Father History Unknown: Yes Medications and Allergies Home Medications Medication Instructions Recorded Confirmed Type Albuterol Sulfate [Proair Hfa] 2 puff INHALATION RT-Q4H PRN 04/11/22 04/15/22 History Fluticasone/Umeclidin/Vilanter 1 puff INHALATION RT-DAILY 04/11/22 04/15/22 History [Trelegy Ellipta 200-62.5-25] Lisinopril-Hctz 20-12.5 mg 1 tab PO DAILY 04/11/22 04/15/22 History [Zestoretic 20-12.5] Nitroglycerin Sl Tabs [Nitrostat] 0.4 mg SUBLINGUAL Q5M PRN 04/11/22 04/15/22 History Benzonatate [Tessalon Perle] 200 mg PO Q8HR PRN 04/15/22 04/15/22 History predniSONE [Deltasone] See Taper PO DIRECTED 04/15/22 04/15/22 History Allergies Allergy/AdvReac Type Severity Reaction Status Date / Time Penicillins Allergy Severe Anaphylaxis Verified 04/15/22 19:50 Physical Exam Vitals: Vital Signs Temp Pulse Resp BP Pulse Ox 04/15/22 20:05 78 18 131/88 96 04/15/22 19:35 72 18 97/81 98 04/15/22 19:27 98.0 F 84 16 98/64 95 Intake and Output 04/15/22 04/15/22 04/15/22 06:59 14:59 22:59 Intake Total 900 Balance 900 Intake: IV 900 Other: Weight 79.379 kg Results 04/15/22 19:43 04/15/22 19:43 Cardiac Enzymes 04/15/22 04/15/22 Range/Units 19:43 19:43 AST 25 (14-36) U/L Troponin I 0.784 H* (0.000-0.034) ng/mL Coagulation 04/15/22 Range/Units 19:43 PT 11.0 (9.0-12.0) sec APTT 20.1 L (22.0-30.0) sec CBC 04/15/22 Range/Units 19:43 WBC 19.4 H (3.8-10.6) k/uL RBC 4.59 (3.80-5.40) m/uL Hgb 14.5 (11.4-16.0) gm/dL Hct 42.8 (34.0-46.0) % Plt Count 378 (150-450) k/uL Comprehensive Metabolic Panel 04/15/22 Range/Units 19:43 Sodium 138 (137-145) mmol/L Potassium 3.7 (3.5-5.1) mmol/L Chloride 100 (98-107) mmol/L Carbon Dioxide 28 (22-30) mmol/L BUN 23 H (7-17) mg/dL Creatinine 1.07 H (0.52-1.04) mg/dL Glucose 190 H (74-99) mg/dL Calcium 9.5 (8.4-10.2) mg/dL AST 25 (14-36) U/L ALT 23 (4-34) U/L Alkaline Phosphatase 75 (38-126) U/L Total Protein 7.4 (6.3-8.2) g/dL Albumin 4.4 (3.5-5.0) g/dL Current Medications Generic Name Dose Route Start Last Admin Trade Name Freq PRN Reason Stop Dose Admin Al Hydroxide/Mg Hydroxide 30 ml 04/15/22 21:14 Mag Hydrox/Al Hydrox/Simeth 30 Ml Cup PO Q4HR PRN Heartburn Aspirin 81 mg 04/16/22 09:00 Aspirin 81 Mg PO DAILY [facility] Atorvastatin Calcium 80 mg 04/16/22 21:00 Atorvastatin 80 Mg Tab PO HS [facility] Atropine Sulfate 0.5 mg 04/15/22 21:14 Atropine Sulfate 0.1 Mg/Ml 10ml Syringe IV ONCE PRN Symptomatic Bradycardia Sodium Chloride 1,000 ml/ IV 1,000 mls @ 79.379 mls/hr 04/15/22 21:15 Solution IV 04/16/22 01:16 .[id number] [facility] 1 ML/KG/HR Lisinopril 10 mg 04/16/22 09:00 Lisinopril 10 Mg Tab PO DAILY [facility] Metoprolol Tartrate 25 mg 04/15/22 21:15 Metoprolol Tartrate 25 Mg Tab PO BID [facility] Miscellaneous Information 1 each 04/15/22 21:14 Rx Info: Iv Contrast Was Given 1 Each Misc MISCELLANE 04/17/22 21:14 DAILY PRN Per Protocol Naloxone HCl 0.2 mg 04/15/22 20:01 Naloxone 0.4 Mg/Ml 1 Ml Vial IV Q2M PRN Opioid Reversal Nitroglycerin 0.4 mg 04/15/22 21:14 Nitroglycerin Sl Tabs 0.4 Mg Tab SUBLINGUAL Q5M PRN Chest Pain Prasugrel 10 mg 04/16/22 09:00 Prasugrel 10 Mg Tab PO DAILY [facility] Protocol Zolpidem Tartrate 5 mg 04/15/22 21:14 Zolpidem 5 Mg Tab PO HS PRN Insomnia Intake and Output 04/15/22 04/15/22 04/15/22 06:59 14:59 22:59 Intake Total 900 Balance 900 Intake: IV 900 Other: Weight 79.379 kg Patient Weight 04/16/22 06:59 Weight 79.379 kg 04/15/22 19:43 04/15/22 19:43
--- NOTE | 2022-04-15 21:37 | P.CARDCATH ---
Date of Procedure: 04/15/22 Description of Procedure: Cardiac Catheterization: The patient is a 56-year-old female with known history of CAD who presents with an acute inferior wall myocardial infarctions Recommendations were made regarding cardiac catheterization, the risks and the complications were discussed with the patient who is in full understanding and agreement. Procedure Description: Patient was brought to [facility] lab[facility] in fasting semi-sedated state after receiving Fentanyl and Benadryl achieiving moderate conscious sedated state. Using Xylocaine Anesthesia and Seldinger technique, a 6-Haitian sheath was introduced in the right femoral artery, attempt to cannulate the right radial artery was unsuccessful. Subsequently, selective coronary angiography was performed using a 6-Haitian 0.75 AL guide and 4 bend left Roberto catheter. Multiple views of the coronary artery including hemiaxial views were obtained. After obtaining the images of the right first and performing angioplasty and stenting images of the left corner system were performed. The 6-Haitian Pigtail catheter was used to cross the aortic valve and LVEDP was calculated. Following that, catheter and sheath were removed. Hemostasis was obtained with deployment of Angio-Seal . There was no immediate complication. Patient was returned to room in stable condition. Of note, the patient received a total of 5000 units of intravenous heparin as well as Effient. Her ACT was monitored. At the end of procedure her chest discomfort resolved. She was returned to her room in stable condition. Findings: Left main: This is a size vessel, bifurcating LAD and left circumflex, left main has no high-grade stenosis LAD: This is a size vessel giving rise to small diagonal branch, in the midsegment of the LAD there is a 30-40% plaque, the rest of the vessel has no high-grade stenosis. Left circumflex: This is a nondominant vessel giving rise to 2 obtuse marginal branch the second one is large in caliber, the mid left circumflex and proximal second obtuse marginal branch has 40-50% plaque RCA: This is a dominant vessel the stent in the mid segment is patent, at the edge of the stent there is a 99% stenosis with slow flow distally. Fluoroscopy calcification involving the LAD Left Ventriculogram: Was not performed Hemodynamics: There was no gradient across the aortic valve, LVEDP 5-10 mmHg Angioplasty: Using the 6-Haitian 0.75AL guiding catheter and after analyzing the ostium of the right coronary artery 0.014 BMW was introduced across the lesion and positioned distally subsequently a 2.5 X 12 mm Treck was advanced and dilated at 8 meeta. The patient had an episode of asystole, brief requiring atropine. She had atrial fibrillation following that but no ventricular tachycardia. Following that inflation and because of the positioning of the guiding catheter the catheter and the wire were removed and a 6-Haitian right Roberto guiding catheter was introduced into system and after cannulating directly ostium the BMW wire was introduced and a 3.0 by 28 mm Xience Rosaura point stent was advanced, deployed and dilated at 16 meeta, after removing the balloon a 3.25 x 15 mm NC Treck balloon was advanced into inflation at 12 meeta were done. Following the last inflation and after appropriate wait the balloon and the wire were removed, images were obtained and repeated and revealed stable successful stenting. At that time the guiding catheter, the balloon and the guidewire were removed and images of the left coronary system were obtained. Conclusion: 1. Subtotal occlusion of the mid RCA with successful stenting and reduction of stenosis from 99% to 0% 2. Moderate disease in the LAD 3. And moderate disease in the left circumflex Recommendations: I reviewed the results of the testing with the patient and her family, I have recommended dual antiplatelet treatment with aspirin and Effient for 1 year without any interruption in addition to aggressive coronary risks modifications and smoking cessation. Duration of sedation is 48 minutes.
[2022-04-15 21:38] LABS: Glucose,Whole Blood 109 mg/dL (70-110)
[2022-04-15] MEDS: METOPROLOL TARTRATE 25 MG TAB PO SCH (22:55)
[2022-04-16 06:01] LABS: Basophils # (A) 0.1 k/uL (0-0.2); Basophils % (A) 1 %; Eosinophils # (A) 0.1 k/uL (0-0.7); Eosinophils % (A) 0 %; HCT 40.7 % (34.0-46.0); HGB 13.2 gm/dL (11.4-16.0); Lymphocytes # (A) 4.1 k/uL (1.0-4.8); Lymphocytes % (A) 26 %; MCH 31.5 pg (25.0-35.0); MCHC 32.5 g/dL (31.0-37.0); MCV 96.9 fL (80.0-100.0); Mean Platelet Volume 7.4; Monocytes # (A) 0.9 k/uL (0-1.0); Monocytes % (A) 6 %; Neutrophils # (A) 10.2 k/uL (1.3-7.7); Neutrophils % (A) 65 %; Platelet Count 293 k/uL (150-450); RDW 13.4 % (11.5-15.5); WBC 15.6 k/uL (3.8-10.6)
[2022-04-16] MEDS ORDERED: SODIUM CHLORIDE 0.9% 500 ML 500 ML IV ONE (06:13)
[2022-04-16 06:21] LABS: Calcium 8.8 mg/dL (8.4-10.2); Potassium 4.4 mmol/L (3.5-5.1)
--- NOTE | 2022-04-16 07:52 | P.PN ---
Subjective History of Present Illness: The patient is a 56-year-old female with a known history of CAD status post stenting of the RCA in 2020 with moderate disease in the left circumflex and the LAD who presented to the emergency room with acute chest discomfort and ST segment involving the inferior leads with ST segment depression anteriorly. The discomfort started about 2 hours prior to presentation, at rest. The patient has a known history of chronic tobacco use with significant COPD, followed by Dr. Rajan, history of hypertension. She has a history of noncompliance with her medication, was not taking aspirin dictation. She has chronic dyspnea on exertion, no dizziness or palpitations, no PND orthopnea or peripheral edema. According to her she has been having frequent episodes of chest discomfort and has used nitroglycerin at home although she was seen in the hospital in the past with no evidence of acute coronary syndrome. Her echocardiogram done in October 2020 revealed an ejection fraction of 50-55% with mild to moderate mitral regu rgitation. Medications: At home she was supposed to be on fluticasone, lisinopril HCT 20/25 in addition to tapering dose of prednisone. 04/16 Patient seen and examined. She has been noncompliant and ran out of medications and has been having off-and-on chest pain over last month and a half. She has been using nitroglycerin however ran out of much or other medications. She was found to have inferior STEMI and underwent successful PCI of the RCA last night. She did have some mild pain at approximately 3 AM which she felt was different however this resolved shortly after and denies any further chest pain or shortness breath. Blood pressure reading in chart 69/45 however question of care. She did receive 500 mL bolus with improvement in blood pressure. Denies any lightheadedness or dizziness. Physical Examination: Vitals reviewed Head: Normocephalic. Eyes: Sclerae nonicteric. Neck: Good carotid upstroke, no bruit, no jugular venous distention. Lungs: Clear to auscultation anteriorly. Heart: Regular rate and rhythm, S1-S2, no S3, no rub. Systolic ejection murmur. Abdomen: Soft nontender, positive bowel sounds no organomegaly. Extremities: No edema, intact distal pulses. Impression: 1. Acute ST segment elevation myocardial infarction in the inferior wall s/p PCI RCA 04/15 2. Chronic tobacco abuse with COPD 3. Hypertension 4. Noncompliance 5. Borderline blood pressure, s/p 500 mL bolus with improvement Plan: Check 2-D echo. Patient restarted on home medications which she had ran out of. Discussed tobacco cessation. Continue with dual antiplatelets for 12 months. She may be moved from ICU later this afternoon if hemodynamically stable. Hold lisinopril given hypotension. Objective - Vital Signs Vital signs: Vital Signs Temp 98.0 F 04/16/22 04:00 Pulse 59 L 04/16/22 07:00 Resp 19 04/16/22 07:00 BP 89/63 04/16/22 07:00 Pulse Ox 96 04/16/22 07:00 FiO2 Intake & Output 04/15/22 04/16/22 04/16/22 18:59 06:59 18:59 Intake Total 1220 500 Output Total 500 Balance 720 500 Weight 82.9 kg Intake: IV 900 500 Sodium Chloride 0.9% 500 500 ml 500 ml @ 999 mls/hr IV .Q31M ONE Rx#:[id number] Intake, IV Titration 320 Amount Sodium Chloride 0.9% 1, 320 000 ml In Empty Bag 1 bag @ 1 ML/KG/HR 79.379 mls/ hr IV .[id number] [facility] Rx#: [id number] Output: Urine 500 Other: Voiding Method Bedside Commode # Bowel Movements 1 - Labs CBC & Chem 7: 04/16/22 05:05 04/16/22 05:05 Labs: Abnormal Lab Results - Last 24 Hours (Table) 04/15/22 04/15/22 04/15/22 Range/Units 19:43 19:43 19:43 WBC 19.4 H (3.8-10.6) k/uL Neutrophils # 13.0 H (1.3-7.7) k/uL Lymphocytes # 4.9 H (1.0-4.8) k/uL APTT 20.1 L (22.0-30.0) sec BUN 23 H (7-17) mg/dL Creatinine 1.07 H (0.52-1.04) mg/dL Glucose 190 H (74-99) mg/dL Troponin I (0.000-0.034) ng/mL 04/15/22 04/15/22 04/16/22 Range/Units 19:43 23:00 05:05 WBC 15.6 H (3.8-10.6) k/uL Neutrophils # 10.2 H (1.3-7.7) k/uL Lymphocytes # (1.0-4.8) k/uL APTT (22.0-30.0) sec BUN (7-17) mg/dL Creatinine (0.52-1.04) mg/dL Glucose (74-99) mg/dL Troponin I 0.784 H* 7.500 H* (0.000-0.034) ng/mL 04/16/22 04/16/22 Range/Units 05:05 05:05 WBC (3.8-10.6) k/uL Neutrophils # (1.3-7.7) k/uL Lymphocytes # (1.0-4.8) k/uL APTT (22.0-30.0) sec BUN 24 H (7-17) mg/dL Creatinine (0.52-1.04) mg/dL Glucose 161 H (74-99) mg/dL Troponin I 26.700 H* (0.000-0.034) ng/mL
[2022-04-16] MEDS: ASPIRIN 81 MG PO SCH (08:24)
[2022-04-16] MEDS: PRASUGREL 10 MG TAB PO SCH (08:24)
[2022-04-16] MEDS ORDERED: lisinopriL 10 MG TAB PO SCH (09:00)
--- NOTE | 2022-04-16 09:26 | P.HPIM ---
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 Patient is afebrile. She has leukocytosis of 19.4 Address of CBC, BMP, liver enzymes were unremarkable. INR is 1.0 creatinine is 1.0. Troponin is elevated. ProBNP is 2910 Chest x-ray: Normal chest Currently patient is on aspirin and effient Past Medical History Past Medical History: Asthma, Coronary Artery Disease (CAD), COPD, Fibromyalgia, Hypertension, Osteoarthritis (OA) Additional Past Medical History / Comment(s): GLAUCOMA History of Any Multi-Drug Resistant Organisms: None Reported Past Surgical History: Appendectomy, Breast Surgery, Tonsillectomy, Tubal Ligation Additional Past Surgical History / Comment(s): Cervix removal Past Anesthesia/Blood Transfusion Reactions: No Reported Reaction Date of Last Stent Placement:: 04/15/22 Past Psychological History: Anxiety, Depression, Panic Disorder, PTSD, Schizophrenia Smoking Status: Current every day smoker Past Alcohol Use History: Occasional Past Drug Use History: None Reported - Past Family History Brother(s) Family Medical History: Cancer Mother Family Medical History: Cancer Additional Family Medical History / Comment(s): MOTHER HAD BREAST CANCER Father History Unknown: Yes Medications and Allergies Home Medications Medication Instructions Recorded Confirmed Type Albuterol Sulfate [Proair Hfa] 2 puff INHALATION RT-Q4H PRN 04/11/22 04/15/22 History Fluticasone/Umeclidin/Vilanter 1 puff INHALATION RT-DAILY 04/11/22 04/15/22 History [Trelegy Ellipta 200-62.5-25] Lisinopril-Hctz 20-12.5 mg 1 tab PO DAILY 04/11/22 04/15/22 History [Zestoretic 20-12.5] Nitroglycerin Sl Tabs [Nitrostat] 0.4 mg SUBLINGUAL Q5M PRN 04/11/22 04/15/22 History Benzonatate [Tessalon Perle] 200 mg PO Q8HR PRN 04/15/22 04/15/22 History predniSONE [Deltasone] See Taper PO DIRECTED 04/15/22 04/15/22 History Allergies Allergy/AdvReac Type Severity Reaction Status Date / Time Penicillins Allergy Severe Anaphylaxis Verified 04/15/22 19:50 Physical Exam Vitals: Vital Signs Temp Pulse Resp BP Pulse Ox 04/16/22 08:00 98.0 F 61 18 93/59 95 04/16/22 07:00 59 L 19 89/63 96 04/16/22 06:00 62 21 69/45 95 04/16/22 05:00 60 16 89/64 95 04/16/22 04:00 98.0 F 63 24 96/63 94 L 04/16/22 03:00 87 19 103/79 93 L 04/16/22 02:00 88 20 109/70 92 L 04/16/22 01:00 86 20 104/85 94 L 04/16/22 00:00 98.2 F 89 12 118/86 93 L 04/15/22 23:00 85 12 122/88 95 04/15/22 22:00 87 12 111/74 96 04/15/22 21:31 97.8 F 89 16 110/82 96 04/15/22 20:24 97.8 F 04/15/22 20:05 78 18 131/88 96 04/15/22 19:45 74 18 101/77 95 04/15/22 19:43 73 20 97/81 04/15/22 19:35 72 18 97/81 98 04/15/22 19:27 98.0 F 84 16 98/64 95 Intake and Output 04/15/22 04/16/22 04/16/22 22:59 06:59 14:59 Intake Total 980 240 545 Output Total 300 200 Balance 680 40 545 Intake: IV 900 500 Sodium Chloride 0.9% 500 500 ml 500 ml @ 999 mls/hr IV .Q31M ONE Rx#:[id number] Intake, IV Titration 80 240 Amount Sodium Chloride 0.9% 1, 80 240 000 ml In Empty Bag 1 bag @ 1 ML/KG/HR 79.379 mls/ hr IV .[id number] [facility] Rx#: [id number] Oral 45 Output: Urine 300 200 Other: Voiding Method Bedside Commode # Bowel Movements 1 Weight 79.379 kg 82.9 kg Results CBC & Chem 7: 04/16/22 05:05 04/16/22 05:05 Labs: Abnormal Lab Results - Last 24 Hours (Table) 04/15/22 04/15/22 04/15/22 Range/Units 19:43 19:43 19:43 WBC 19.4 H (3.8-10.6) k/uL Neutrophils # 13.0 H (1.3-7.7) k/uL Lymphocytes # 4.9 H (1.0-4.8) k/uL APTT 20.1 L (22.0-30.0) sec BUN 23 H (7-17) mg/dL Creatinine 1.07 H (0.52-1.04) mg/dL Glucose 190 H (74-99) mg/dL Troponin I (0.000-0.034) ng/mL 04/15/22 04/15/22 04/16/22 Range/Units 19:43 23:00 05:05 WBC 15.6 H (3.8-10.6) k/uL Neutrophils # 10.2 H (1.3-7.7) k/uL Lymphocytes # (1.0-4.8) k/uL APTT (22.0-30.0) sec BUN (7-17) mg/dL Creatinine (0.52-1.04) mg/dL Glucose (74-99) mg/dL Troponin I 0.784 H* 7.500 H* (0.000-0.034) ng/mL 04/16/22 04/16/22 Range/Units 05:05 05:05 WBC (3.8-10.6) k/uL Neutrophils # (1.3-7.7) k/uL Lymphocytes # (1.0-4.8) k/uL APTT (22.0-30.0) sec BUN 24 H (7-17) mg/dL Creatinine (0.52-1.04) mg/dL Glucose 161 H (74-99) mg/dL Troponin I 26.700 H* (0.000-0.034) ng/mL Thrombosis Risk Factor Assmnt - Choose All That Apply Any of the Below Risk Factors Present?: Yes Each Factor Represents 1 point: Abnormal pulmonary function (COPD), Acute SD, Age 41-60 years Other Risk Factors: No Other congenital or acquired thrombophilia - If yes, enter type in comment: No Thrombosis Risk Factor Assessment Total Risk Factor Score: 3 Thrombosis Risk Factor Assessment Level: Moderate Risk Assessment and Plan Assessment: STEMI status post ACI to RCA nicotine dependence History of asthma History of coronary artery disease COPD, no acute exacerbation Fibromyalgia Hypertension History of osteoarthritis History of glaucoma History of schizophrenia, depression, anxiety Plan: This is a pleasant 56 years old female status post STEMI and PCI of RCA Continue with dual antiplatelet therapy Continue with metoprolol and lisinopril Continue with statin Cardiology consult Labs and medication were reviewed.. Continue same treatment. Continue with symptomatic treatment. Resume home medication. Monitor lytes and vitals. DVT and GI prophylaxis. Further recommendations as per clinical course of the patient DVT prophylaxis: Subcutaneous heparin GI Prophylaxis: Pepcid
[2022-04-16] MEDS ORDERED: ALBUTEROL NEBULIZED 2.5 MG/3 ML INHALATION PRN (09:48)
[2022-04-16] MEDS ORDERED: SYMBICORT 160-4.5 MCG INHALER INHALATION SCH (10:00)
[2022-04-16] MEDS: IPRATROPIUM 0.5 MG/2.5 ML NEBU INHALATION SCH ×3 (11:08→19:54)
[2022-04-16 11:17] VITALS: BMI 35.6
[2022-04-16] MEDS: METOPROLOL TARTRATE 25 MG TAB PO SCH ×2 (11:46→19:46)
[2022-04-16] MEDS ORDERED: PROAIR PO PRN (12:10)
--- NOTE | 2022-04-16 12:43 | CA ---
Transthoracic Echo Report Name: Chelsea Solo Age: 56 Gender: F : 1965 Exam Date: 04/16/2022 09:12 Exam Location: [place] [facility] Ht (in): 60 Wt (lb): 182 Ordering Physician: Brian Lombardo MD ([id number]) Attending/Referring Phys: Lead Miner Winifred Leslie RDCS Procedure CPT: Indications: VT Cardiac Hx: Technical Quality: Contrast 1: Total Dose (mL): Contrast 2: Total Dose (mL): MEASUREMENTS (Male / Female) Normal Values M-MODE Aortic Root Diameter MM 2.7 cm MV E Point Septal Separation 0.6 cm AV Cusp Separation MM 1.2 cm DOPPLER MV Area PHT 3.7 cm??? Mitral E Point Velocity 66.7 cm/s Mitral A Point Velocity 63.1 cm/s Mitral E to A Ratio 1.1 MV Deceleration Time 206.5 ms MV E' Velocity 7.1 cm/s Mitral E to MV E' Ratio 9.4 FINDINGS Left Ventricle Left ventricular ejection fraction is estimated at 45-50 %. Right Ventricle Normal right ventricular size and function. Right Atrium Normal right atrial size. Left Atrium Normal left atrial size. Mitral Valve Structurally normal mitral valve. Aortic Valve Aortic valve not well visualized. Tricuspid Valve Structurally normal tricuspid valve. Pulmonic Valve Pulmonic valve not well visualized. Pericardium Normal pericardium. Aorta Normal size aortic root and proximal ascending aorta. CONCLUSIONS Technically difficult study for interpretation Mildly impaired LV function was if between 45-50% Poorly visualized intracardiac valves Previewed by: Dr. Rc Serrato MD (Electronically Signed) Final Date: 16 April 2022 12:42
[2022-04-16] MEDS: TRELEGY ELLIPTA INHALATION SCH (14:17)
[2022-04-16 19:33] LABS: LDL Cholesterol,Calculated 55.7 mg/dL (0.0-131.0)
[2022-04-16] MEDS: HEPARIN SODIUM,PORCINE/PF 5,000 UNIT/0.5 ML SYRINGE SQ SCH (19:45)
[2022-04-16] MEDS ORDERED: FAMOTIDINE 20 MG/2 ML VIAL IV SCH (21:00)
[2022-04-16] MEDS ORDERED: ATORVASTATIN 80 MG TAB PO SCH (21:00)
[2022-04-16 23:58] VITALS: RESP 16; TEMP 97.9
[2022-04-17] MEDS: IPRATROPIUM 0.5 MG/2.5 ML NEBU INHALATION SCH ×3 (07:56→15:34)
[2022-04-17] MEDS: TRELEGY ELLIPTA INHALATION SCH (07:56)
[2022-04-17] MEDS ORDERED: NON FORMULARY DRUG (Fluticasone/Umeclidin/Vilanter [Trelegy Ellipta 200-62.5-25] 1 EACH Bl INHALATION SCH (08:00)
[2022-04-17] MEDS: METOPROLOL TARTRATE 25 MG TAB PO SCH (08:24)
[2022-04-17] MEDS: HEPARIN SODIUM,PORCINE/PF 5,000 UNIT/0.5 ML SYRINGE SQ SCH (08:24)
[2022-04-17] MEDS: PRASUGREL 10 MG TAB PO SCH (08:24)
[2022-04-17] MEDS: ASPIRIN 81 MG PO SCH (08:24)
[2022-04-17 08:25] LABS: Basophils # (A) 0.1 k/uL (0-0.2); Basophils % (A) 0 %; Eosinophils # (A) 0.2 k/uL (0-0.7); Eosinophils % (A) 2 %; HCT 38.4 % (34.0-46.0); HGB 12.8 gm/dL (11.4-16.0); Lymphocytes # (A) 3.9 k/uL (1.0-4.8); Lymphocytes % (A) 37 %; MCH 32.3 pg (25.0-35.0); MCHC 33.4 g/dL (31.0-37.0); MCV 96.8 fL (80.0-100.0); Mean Platelet Volume 7.5; Monocytes # (A) 0.6 k/uL (0-1.0); Monocytes % (A) 6 %; Neutrophils # (A) 5.6 k/uL (1.3-7.7); Neutrophils % (A) 54 %; Platelet Count 240 k/uL (150-450); RBC 3.96 m/uL (3.80-5.40); RDW 13.9 % (11.5-15.5); WBC 10.5 k/uL (3.8-10.6)
[2022-04-17 08:38] LABS: African American GFR (CKD) >90 (>60 ml/min/1.73 sqM); Anion Gap 5 mmol/L; Blood Urea Nitrogen 23 mg/dL (7-17); Calcium 8.3 mg/dL (8.4-10.2); Carbon Dioxide 27 mmol/L (22-30); Chloride 104 mmol/L (98-107); Glucose 90 mg/dL (74-99); Non-African American GFR(CKD) >90 (>60 ml/min/1.73 sqM); Potassium 4.3 mmol/L (3.5-5.1); Sodium 136 mmol/L (137-145)
--- NOTE | 2022-04-17 10:47 | P.PN ---
Subjective his is a pleasant 56 years old female with past medical history of Asthma, Coronary Artery Disease (CAD), COPD, Fibromyalgia, Hypertension, Osteoarthritis (OA) This is a pleasant 56 years old female who presents with chest pain found to have STEMI Patient evaluated by densitometrist and underwent emergent cardiac cath This morning she was lying in bed comfortable she has minimal chest pain, no other complaints, no dyspnea, no diarrhea or vomiting, no urinary complaints, no weakness or dizziness Vitas looks stable. Patient is afebrile. She has leukocytosis of 19.4 Address of CBC, BMP, liver enzymes were unremarkable. INR is 1.0 creatinine is 1.0. Troponin is elevated. ProBNP is 2910 Chest x-ray: Normal chest Currently patient is on aspirin and effient 7622 04/17/2022 Patient looks comfortable with no chest pain or dyspnea. Vitals are stable Leukocytosis resolved, WBCs 10,000, creatinine normal 0.7. Patient remains on aspirin and effeint Reducer on the case Objective - Vital Signs Vital signs: Vital Signs Temp 97.9 F 04/17/22 04:00 Pulse 68 04/17/22 08:00 Resp 16 04/17/22 08:00 BP 119/67 04/17/22 08:00 Pulse Ox 99 04/17/22 08:00 FiO2 Intake & Output 04/16/22 04/17/22 04/17/22 18:59 06:59 18:59 Intake Total 1195 240 90 Balance 1195 240 90 Weight 82.9 kg Intake: IV 500 Sodium Chloride 0.9% 500 500 ml 500 ml @ 999 mls/hr IV .Q31M ONE Rx#:[id number] Oral 695 240 90 Other: # Voids 1 2 - Exam GENERAL: The patient is alert and oriented x3, not in any acute distress. Well developed, well nourished. HEENT: Pupils are round and equally reacting to light. EOMI. No scleral icterus. No conjunctival pallor. Normocephalic, atraumatic. No pharyngeal erythema. No thyromegaly. CARDIOVASCULAR: S1 and S2 present. No murmurs, rubs, or gallops. PULMONARY: Chest is clear to auscultation, no wheezing or crackles. ABDOMEN: Soft, nontender, nondistended, normoactive bowel sounds. No palpable organomegaly. MUSCULOSKELETAL: No joint swelling or deformity. EXTREMITIES: No cyanosis, clubbing, or pedal edema. NEUROLOGICAL: Gross neurological examination did not reveal any focal deficits. SKIN: No rashes. no petechiae. - Labs CBC & Chem 7: 04/17/22 07:16 04/17/22 07:16 Labs: Abnormal Lab Results - Last 24 Hours (Table) 04/16/22 04/17/22 Range/Units 05:05 07:16 Sodium 136 L (137-145) mmol/L BUN 23 H (7-17) mg/dL Calcium 8.3 L (8.4-10.2) mg/dL Triglycerides 213.00 H (0.00-149.00) mg/dL VLDL Cholesterol, Calc 42.60 H (5.00-40.00) mg/dL Assessment and Plan Assessment: STEMI status post ACI to RCA nicotine dependence History of asthma History of coronary artery disease COPD, no acute exacerbation Fibromyalgia Hypertension History of osteoarthritis History of glaucoma History of schizophrenia, depression, anxiety Plan: This is a pleasant 56 years old female status post STEMI and PCI of RCA Continue with dual antiplatelet therapy Continue with metoprolol and lisinopril Continue with statin Cardiology consult Labs and medication were reviewed.. Continue same treatment. Continue with symptomatic treatment. Resume home medication. Monitor lytes and vitals. DVT and GI prophylaxis. Further recommendations as per clinical course of the patient DVT prophylaxis: Subcutaneous heparin GI Prophylaxis: Pepcid
--- NOTE | 2022-04-17 12:59 | P.PN ---
Subjective The patient is a 56-year-old female with a known history of CAD status post stenting of the RCA in 2020 with moderate disease in the left circumflex and the LAD who presented to the emergency room with acute chest discomfort and ST segment involving the inferior leads with ST segment depression anteriorly. The discomfort started about 2 hours prior to presentation, at rest. The patient has a known history of chronic tobacco use with significant COPD, followed by Dr. Rajan, history of hypertension. She has a history of noncompliance with her m edication, was not taking aspirin dictation. She has chronic dyspnea on exertion, no dizziness or palpitations, no PND orthopnea or peripheral edema. According to her she has been having frequent episodes of chest discomfort and has used nitroglycerin at home although she was seen in the hospital in the past with no evidence of acute coronary syndrome. Her echocardiogram done in October 2020 revealed an ejection fraction of 50-55% with mild to moderate mitral regurgitation. 04/17/2022 Patient seen and examined. She has been noncompliant and ran out of medications and has been having off-and-on chest pain over last month and a half. She has been using nitroglycerin however ran out of much or other medications. She was found to have inferior STEMI and underwent successful PCI of the RCA on 04/15/2022. She has had no further chest pain. She describes some mild shortness of breath which she relates to her COPD. Also mild cough. Her vital signs are stable. No complaint of lightheadedness dizziness. She is currently maintained on dual antiplatelet therapy with aspirin and Effient. She is also on atorvastatin 80 mg nightly and metoprolol tartrate 25 mg twice a day PHYSICAL EXAMINATION Vitals reviewed Head: Normocephalic. Eyes: Sclerae nonicteric. Neck: Good carotid upstroke, no bruit, no jugular venous distention. Lungs: Clear to auscultation anteriorly. Heart: Regular rate and rhythm, S1-S2, no S3, no rub. Systolic ejection murmur. Abdomen: Soft nontender, positive bowel sounds no organomegaly. Extremities: No edema, intact distal pulses. ASSESSMENT Acute ST segment elevation myocardial infarction in the inferior wall s/p PCI RCA 04/15 Chronic tobacco abuse with COPD Hypertension Noncompliance Borderline blood pressure, s/p 500 mL bolus with improvement Ischemic cardiomyopathy EF 45-50% PLAN Discussed tobacco cessation. Continue with dual antiplatelets for 12 months. Continue metoprolol and statin From cardiology perspective, patient is to be discharged home today. Follow up outpatient with Dr. Hull in one week Nurse practitioner note has been reviewed by physician. Signing provider agrees with the documented findings, assessment, and plan of care. Objective - Vital Signs Vital signs: Vital Signs Temp 97.9 F 04/17/22 04:00 Pulse 73 04/17/22 12:00 Resp 16 04/17/22 12:00 BP 115/62 04/17/22 12:00 Pulse Ox 97 04/17/22 12:00 FiO2 Intake & Output 04/16/22 04/17/22 04/17/22 18:59 06:59 18:59 Intake Total 1195 240 90 Balance 1195 240 90 Weight 82.9 kg Intake: IV 500 Sodium Chloride 0.9% 500 500 ml 500 ml @ 999 mls/hr IV .Q31M ONE Rx#:[id number] Oral 695 240 90 Other: Voiding Method Bedside Commode # Voids 1 2 - Labs CBC & Chem 7: 04/17/22 07:16 04/17/22 07:16 Labs: Abnormal Lab Results - Last 24 Hours (Table) 04/16/22 04/17/22 Range/Units 05:05 07:16 Sodium 136 L (137-145) mmol/L BUN 23 H (7-17) mg/dL Calcium 8.3 L (8.4-10.2) mg/dL Triglycerides 213.00 H (0.00-149.00) mg/dL VLDL Cholesterol, Calc 42.60 H (5.00-40.00) mg/dL
[2022-04-17 16:08] VITALS: BP 135/75; PULSE 72
[2022-04-17] MEDS ORDERED: FAMOTIDINE 20 MG TAB PO SCH (21:00)
== END 2022-04-17 17:28 | disposition home health service (06) | DRG 246 ==
LOC: EC 19:25 → 2SICU 20:01 → 3SCARD 04-16 17:36
PROVIDERS: ADMIT Hospitalist; ATTEND Hospitalist
PROC: B2111ZZ Fluoroscopy of Multiple Coronary Arteries using Low Osmolar Contrast (ICD-10-PCS; 2022-04-15)
PROC: 4A023N7 Measurement of Cardiac Sampling and Pressure, Left Heart, Percutaneous Approach (ICD-10-PCS; principal; 2022-04-15 20:01)
PROC: 027034Z Dilation of Coronary Artery, One Artery with Drug-eluting Intraluminal Device, Percutaneous Approach (ICD-10-PCS; 2022-04-15 20:01)
DX: I21.19 ST elevation (STEMI) myocardial infarction involving other coronary artery of inferior wall (principal); I46.2 Cardiac arrest due to underlying cardiac condition; I48.91 Unspecified atrial fibrillation; J44.9 Chronic obstructive pulmonary disease, unspecified; I10 Essential (primary) hypertension; I34.0 Nonrheumatic mitral (valve) insufficiency; I95.9 Hypotension, unspecified; M19.90 Unspecified osteoarthritis, unspecified site; M79.7 Fibromyalgia; D72.829 Elevated white blood cell count, unspecified; F20.9 Schizophrenia, unspecified; F32.A Depression, unspecified; F41.0 Panic disorder [episodic paroxysmal anxiety]; H40.9 Unspecified glaucoma; I25.119 Atherosclerotic heart disease of native coronary artery with unspecified angina pectoris; I25.5 Ischemic cardiomyopathy; F43.10 Post-traumatic stress disorder, unspecified; F17.210 Nicotine dependence, cigarettes, uncomplicated; Z91.14 Patient's other noncompliance with medication regimen; Z79.899 Other long term (current) drug therapy; Z80.3 Family history of malignant neoplasm of breast; Z88.0 Allergy status to penicillin; Z90.89 Acquired absence of other organs; Z98.51 Tubal ligation status; Z90.712 Acquired absence of cervix with remaining uterus; Z79.51 Long term (current) use of inhaled steroids
CPT/HCPCS: 36415; 71045; 80048; 80053; 80061; 83690; 83735; 83880; 84484; 85025; 85610; 85730; 93005; 93306; 93458

== ENCOUNTER 2023-09-21 21:57 | Inpatient (IN) | payer OTHER ==
[2023-09-21] MEDS ORDERED: SODIUM CHLORIDE 0.9% 500 ML 500 ML IV STA (22:08)
--- NOTE | 2023-09-21 22:13 | ED ---
Arrhythmia/Palpitations HPI - General Chief Complaint: Arrhythmia/Palpitations Stated Complaint: SVT Time Seen by Provider: 09/21/23 22:01 Source: EMS Mode of arrival: EMS - History of Present Illness Initial Comments: Patient is a 57-year-old woman who presents to have evaluation for palpitations and chest pain. The patient states that approximately 9:00 she had arrived home. She states that she felt a fluttering in her chest and then she developed pain and dyspnea. EMS was called, and they found the patient to have a heart rate of 180 that to them appeared to be SVT. They did give a dose of adenosine 6 mg and the patient converted to sinus rhythm in the upper 80s. States that all of her symptoms resolved and she feels very well. She did also receive aspirin from EMS. She had taken nitroglycerin after the onset of symptoms which did not cause any change. MD Complaint: rapid heart beat -: hour(s) Context: occurred during rest Associated Symptoms: chest pain, shortness of breath Treatments Prior to Arrival: adenosine - Related Data Home Medications Medication Instructions Recorded Confirmed Albuterol Sulfate [Proair Hfa] 2 puff INHALATION RT-Q4H PRN 04/11/22 09/22/23 Previous Rx's Medication Instructions Recorded Albuterol Nebulized [Ventolin 2.5 mg INHALATION RT-QID PRN #20 ml 09/23/23 Nebulized] Aspirin 81 mg PO DAILY #30 tab 09/23/23 Atorvastatin [Lipitor] 40 mg PO HS #30 tab 09/23/23 Famotidine [Pepcid] 20 mg PO HS #30 tab 09/23/23 Fluticasone/Umeclidin/Vilanter 1 inhalation INHALATION DAILY #1 09/23/23 [Trelegy Ellipta 100-62.5-25] each Metoprolol Succinate (ER) [Toprol 25 mg PO DAILY #30 tab 09/23/23 XL] Nicotine 14Mg/24Hr Patch [Habitrol] 1 patch TRANSDERM DAILY #0 patch 09/23/23 Nitroglycerin Sl Tabs [Nitrostat] 0.4 mg SUBLINGUAL Q5M PRN #20 tab 09/23/23 Allergies Allergy/AdvReac Type Severity Reaction Status Date / Time Penicillins Allergy Severe Anaphylaxis Verified 09/22/23 06:35 Review of Systems ROS Statement: Those systems with pertinent positive or pertinent negative responses have been documented in the HPI. ROS Other: All systems not noted in ROS Statement are negative. Constitutional: Denies: fever, chills, weakness Respiratory: Reports: dyspnea. Denies: cough, wheezes, hemoptysis Cardiovascular: Reports: chest pain, palpitations. Denies: orthopnea, edema, syncope Gastrointestinal: Denies: abdominal pain, nausea, vomiting, diarrhea Genitourinary: Denies: dysuria, hematuria Musculoskeletal: Denies: back pain Skin: Denies: rash Neurological: Denies: headache, weakness Psychiatric: Reports: anxiety Past Medical History Past Medical History: Asthma, Coronary Artery Disease (CAD), COPD, Fibromyalgia, Hypertension, Osteoarthritis (OA) Additional Past Medical History / Comment(s): GLAUCOMA History of Any Multi-Drug Resistant Organisms: None Reported Past Surgical History: Appendectomy, Breast Surgery, Tonsillectomy, Tubal Ligation Additional Past Surgical History / Comment(s): Cervix removal Past Anesthesia/Blood Transfusion Reactions: No Reported Reaction Date of Last Stent Placement:: 04/15/22 Past Psychological History: Anxiety, Depression, Panic Disorder, PTSD, Schizophrenia Smoking Status: Current every day smoker Past Alcohol Use History: Occasional Past Drug Use History: None Reported - Past Family History Brother(s) Family Medical History: Cancer Mother Family Medical History: Cancer Additional Family Medical History / Comment(s): MOTHER HAD BREAST CANCER Father History Unknown: Yes General Exam General appearance: alert, in no apparent distress Head exam: Present: atraumatic, normocephalic Eye exam: Present: normal appearance. Absent: scleral icterus, conjunctival injection ENT exam: Present: normal oropharynx Neck exam: Present: normal inspection Respiratory exam: Present: wheezes. Absent: respiratory distress, rales, rhonchi, stridor, accessory muscle use Cardiovascular Exam: Present: regular rate, normal rhythm, normal heart sounds. Absent: systolic murmur, diastolic murmur, rubs, gallop GI/Abdominal exam: Present: soft. Absent: distended, tenderness, guarding, rebound, rigid, mass Extremities exam: Present: normal inspection, normal capillary refill. Absent: pedal edema, calf tenderness Back exam: Present: normal inspection. Absent: CVA tenderness (R), CVA tenderness (L) Neurological exam: Present: alert Skin exam: Present: warm, dry, intact, normal color. Absent: rash Course Vital Signs 09/21/23 09/21/23 09/21/23 21:58 22:00 23:00 Temperature 98.2 F Pulse Rate 98 98 94 Pulse Rate [ Seismic Survey Assistant ] Respiratory 18 18 18 Rate Blood Pressure 121/98 137/91 111/90 Blood Pressure [Left Arm Sitting] O2 Sat by Pulse 99 98 98 Oximetry 09/22/23 09/22/23 09/22/23 00:00 01:00 06:04 Temperature Pulse Rate 89 81 79 Pulse Rate [ Seismic Survey Assistant ] Respiratory 18 18 Rate Blood Pressure 150/73 141/93 Blood Pressure [Left Arm Sitting] O2 Sat by Pulse 98 98 Oximetry 09/22/23 09/22/23 09/22/23 06:16 06:34 09:00 Temperature Pulse Rate 82 78 78 Pulse Rate [ Seismic Survey Assistant ] Respiratory 18 18 Rate Blood Pressure 157/86 162/87 Blood Pressure [Left Arm Sitting] O2 Sat by Pulse 98 98 Oximetry 09/22/23 09/22/23 09/22/23 11:02 11:48 14:29 Temperature Pulse Rate 80 73 Pulse Rate [ 69 Seismic Survey Assistant ] Respiratory 18 18 16 Rate Blood Pressure 148/78 160/90 Blood Pressure 151/111 [Left Arm Sitting] O2 Sat by Pulse 100 94 L 98 Oximetry EKG Findings - EKG Results: EKG: interpreted by JESUS PANTOJA, sinus rhythm (96 bpm), normal axis, normal QRS, normal ST/T, no acute changes - [place], Pacemaker, Normal: Normal tracing: normal tracing Medical Decision Making - Medical Decision Making The patient had chest x-ray which I interpreted as negative for acute infiltrate, thorax, congestive heart failure Was pt. sent in by a medical professional or institution (, PA, [employer], urgent care, hospital, or group home...) When possible be specific @ -[No] Did you speak to anyone other than the patient for history (EMS, parent, family, police, friend...)? What history was obtained from this source @ -[No] Did you review nursing and triage notes (agree or disagree)? Why? @ -[I reviewed and agree with nursing and triage notes] Were old charts reviewed (outside hosp., previous admission, EMS record, old EKG, old radiological studies, urgent care reports/EKG's, group home records)? Report findings @ -[No old charts were reviewed] Differential Diagnosis (chest pain, altered mental status, abdominal pain women, abdominal pain men, vaginal bleeding, weakness, fever, dyspnea, syncope, headache, dizziness, GI bleed, back pain, seizure, CVA, palpatations, mental health, musculoskeletal)? @ -[Differential Palpitations Ventricular arrhythmias, atrial arrhythmias, myocardial infarction, anemia, thyrotoxicosis, electrolyte imbalance, hypokalemia, pulmonary embolism, pulmonary disease, drugs, alcohol, anxiety, stress.... This is not meant to be an all-inclusive list.] EKG interpreted by me (3pts min.). @ -[As above] X-rays interpreted by me (1pt min.). @ -[I interpreted as above CT interpreted by me (1pt min.). @ -[None done] U/S interpreted by me (1pt. min.). @ -[None done] What testing was considered but not performed or refused? (CT, X-rays, U/S, labs)? Why? @ -[None] What meds were considered but not given or refused? Why? @ -[None] Did you discuss the management of the patient with other professionals (professionals i.e. , PA, [employer], lab, RT, psych nurse, social services technician, piano accompanist, teacher, parole or probation officer, caser in)? Give summary @ -[Discussed with admitting physician and treatment recommendations are incorporated Was smoking cessation discussed for >3mins.? @ -[Yes Was critical care preformed (if so, how long)? @ -[No] Were there social determinants of health that impacted care today? How? (Homelessness, low income, unemployed, alcoholism, drug addiction, transportation, low edu. Level, literacy, decrease access to med. care, usp, rehab)? @ -[No] Was there de-escalation of care discussed even if they declined (Discuss DNR or withdrawal of care, Hospice)? DNR status @ -[No] What co-morbidities impacted this encounter? (DM, HTN, Smoking, COPD, CAD, Cancer, CVA, ARF, Chemo, Hep., AIDS, mental health diagnosis, sleep apnea, morbid obesity)? @ -[Hypertension, smoking, CAD Was patient admitted / discharged? Hospital course, mention meds given and route , prescriptions, significant lab abnormalities, going to OR and other pertinent info. @ -[Patient is 57-year-old woman with history of previous CAD, who had what sounds like episode of SVT that resolved with adenosine. The patient did have elevation of troponin and given her history of CAD will admit to have cardiology consultation. Her symptoms have improved after reverting to sinus rhythm. Undiagnosed new problem with uncertain prognosis? @ -[No] Drug Therapy requiring intensive monitoring for toxicity (Heparin, Nitro, Insulin, Cardizem)? @ -[No] Were any procedures done? @ -[No] Diagnosis/symptom? @ -[Acute SVT NSTEMI Acute, or Chronic, or Acute on Chronic? @ Acute Uncomplicated (without systemic symptoms) or Complicated (systemic symptoms)? @ -[Uncomplicated Side effects of treatment? @ -[No] Exacerbation, Progression, or Severe Exacerbation? @ -[No] Poses a threat to life or bodily function? How? (Chest pain, [place], [place], pneumonia, PE, COPD, DKA, ARF, appy, cholecystitis, CVA, Diverticulitis, Homicidal, Suicidal, threat to staff... and all critical care pts) @ -[No] - Lab Data Result diagrams: 09/23/23 07:36 09/21/23 22:11 Lab Results 09/21/23 09/21/23 09/21/23 Range/Units 22:11 22:11 22:11 WBC 16.4 H (3.8-10.6) k/uL RBC 4.58 (3.80-5.40) m/uL Hgb 14.2 (11.4-16.0) gm/dL Hct 42.3 (34.0-46.0) % MCV 92.3 (80.0-100.0) fL MCH 30.9 (25.0-35.0) pg MCHC 33.5 (31.0-37.0) g/dL RDW 13.5 (11.5-15.5) % Plt Count 297 (150-450) k/uL MPV 8.7 Neutrophils % 66 % Lymphocytes % 24 % Monocytes % 5 % Eosinophils % 2 % Basophils % 1 % Neutrophils # 10.9 H (1.3-7.7) k/uL Lymphocytes # 3.9 (1.0-4.8) k/uL Monocytes # 0.9 (0-1.0) k/uL Eosinophils # 0.3 (0-0.7) k/uL Basophils # 0.1 (0-0.2) k/uL PT 11.3 (10.0-12.5) sec INR 1.0 (<1.2) APTT 23.9 (22.0-30.0) sec Sodium 136 L (137-145) mmol/L Potassium 4.1 (3.5-5.1) mmol/L Chloride 103 (98-107) mmol/L Carbon Dioxide 21 L (22-30) mmol/L Anion Gap 12 mmol/L BUN 16 (7-17) mg/dL Creatinine 0.57 (0.52-1.04) mg/dL Est GFR (CKD-EPI)AfAm >90 (>60 ml/min/1.73 sqM) Est GFR (CKD-EPI)NonAf >90 (>60 ml/min/1.73 sqM) Glucose 151 H (74-99) mg/dL Calcium 9.5 (8.4-10.2) mg/dL Magnesium 2.1 (1.6-2.3) mg/dL Total Bilirubin 0.6 (0.2-1.3) mg/dL AST 20 (14-36) U/L ALT 20 (4-34) U/L Alkaline Phosphatase 93 (38-126) U/L Troponin I (0.000-0.034) ng/mL Total Protein 7.2 (6.3-8.2) g/dL Albumin 4.0 (3.5-5.0) g/dL TSH 4.450 (0.465-4.680) mIU/L 09/21/23 Range/Units 22:11 WBC (3.8-10.6) k/uL RBC (3.80-5.40) m/uL Hgb (11.4-16.0) gm/dL Hct (34.0-46.0) % MCV (80.0-100.0) fL MCH (25.0-35.0) pg MCHC (31.0-37.0) g/dL RDW (11.5-15.5) % Plt Count (150-450) k/uL MPV Neutrophils % % Lymphocytes % % Monocytes % % Eosinophils % % Basophils % % Neutrophils # (1.3-7.7) k/uL Lymphocytes # (1.0-4.8) k/uL Monocytes # (0-1.0) k/uL Eosinophils # (0-0.7) k/uL Basophils # (0-0.2) k/uL PT (10.0-12.5) sec INR (<1.2) APTT (22.0-30.0) sec Sodium (137-145) mmol/L Potassium (3.5-5.1) mmol/L Chloride (98-107) mmol/L Carbon Dioxide (22-30) mmol/L Anion Gap mmol/L BUN (7-17) mg/dL Creatinine (0.52-1.04) mg/dL Est GFR (CKD-EPI)AfAm (>60 ml/min/1.73 sqM) Est GFR (CKD-EPI)NonAf (>60 ml/min/1.73 sqM) Glucose (74-99) mg/dL Calcium (8.4-10.2) mg/dL Magnesium (1.6-2.3) mg/dL Total Bilirubin (0.2-1.3) mg/dL AST (14-36) U/L ALT (4-34) U/L Alkaline Phosphatase (38-126) U/L Troponin I <0.012 (0.000-0.034) ng/mL Total Protein (6.3-8.2) g/dL Albumin (3.5-5.0) g/dL TSH (0.465-4.680) mIU/L Disposition Clinical Impression: SVT (supraventricular tachycardia), NSTEMI (non-ST elevated myocardial infarction) Disposition: ADMITTED IP TO THIS HOSP Condition: Stable
[2023-09-21 22:26] LABS: Basophils # (A) 0.1 k/uL (0-0.2); Basophils % (A) 1 %; Eosinophils # (A) 0.3 k/uL (0-0.7); Eosinophils % (A) 2 %; HCT 42.3 % (34.0-46.0); HGB 14.2 gm/dL (11.4-16.0); Lymphocytes # (A) 3.9 k/uL (1.0-4.8); Lymphocytes % (A) 24 %; MCH 30.9 pg (25.0-35.0); MCHC 33.5 g/dL (31.0-37.0); MCV 92.3 fL (80.0-100.0); Mean Platelet Volume 8.7; Monocytes # (A) 0.9 k/uL (0-1.0); Monocytes % (A) 5 %; Neutrophils # (A) 10.9 k/uL (1.3-7.7); Neutrophils % (A) 66 %; Platelet Count 297 k/uL (150-450); RBC 4.58 m/uL (3.80-5.40); RDW 13.5 % (11.5-15.5); WBC 16.4 k/uL (3.8-10.6)
[2023-09-21 22:34] LABS: Partial Thromboplastin Time 23.9 sec (22.0-30.0); Prothrombin Time 11.3 sec (10.0-12.5)
[2023-09-21 22:41] LABS: ALT 20 U/L (4-34); AST 20 U/L (14-36); African American GFR (CKD) >90 (>60 ml/min/1.73 sqM); Alkaline Phosphatase 93 U/L (38-126); Anion Gap 12 mmol/L; Blood Urea Nitrogen 16 mg/dL (7-17); Calcium 9.5 mg/dL (8.4-10.2); Carbon Dioxide 21 mmol/L (22-30); Chloride 103 mmol/L (98-107); Glucose 151 mg/dL (74-99); Magnesium 2.1 mg/dL (1.6-2.3); Non-African American GFR(CKD) >90 (>60 ml/min/1.73 sqM); Potassium 4.1 mmol/L (3.5-5.1); Sodium 136 mmol/L (137-145); Total Bilirubin 0.6 mg/dL (0.2-1.3); Total Protein 7.2 g/dL (6.3-8.2)
--- NOTE | 2023-09-21 22:45 | XR ---
EXAM: XR Chest, 2 Views CLINICAL HISTORY: ITS.REASON XR Reason: dysrhythmia TECHNIQUE: Frontal and lateral views of the chest. COMPARISON: No relevant prior studies available. FINDINGS: Lungs: Unremarkable. No consolidation. Pleural space: Unremarkable. No pneumothorax. Heart: Unremarkable. No cardiomegaly. Mediastinum: Unremarkable. Normal mediastinal contour. Bones/joints: Unremarkable. No acute fracture. IMPRESSION: Normal chest x-rays.
[2023-09-21] MEDS ORDERED: NITROGLYCERIN SL TABS 0.4 MG TAB SUBLINGUAL PRN (23:22)
[2023-09-22] MEDS ORDERED: IPRATROPIUM-ALBUTEROL 3 ML NEB INHALATION STA (05:58)
[2023-09-22] MEDS ORDERED: HEPARIN SODIUM,PORCINE 10,000 UNIT in SODIUM CHLORIDE 0.9% 1,000 ML IRRIGATION PRN (07:00)
[2023-09-22] MEDS ORDERED: HEPARIN SODIUM,PORCINE (1 ML) 2,500 UNIT in SODIUM CHLORIDE 0.9% 250 ML IRRIGATION PRN (07:00)
[2023-09-22] MEDS ORDERED: ASPIRIN 325 MG TAB PO SCH (09:00)
[2023-09-22] MEDS ORDERED: METOPROLOL TARTRATE 25 MG TAB PO SCH (09:00)
[2023-09-22] MEDS: ASPIRIN 81 MG PO SCH (09:07)
[2023-09-22 09:20] LABS: Chol/HDL Ratio 3.53 Ratio; LDL Cholesterol,Calculated 111.7 mg/dL (0.0-131.0); VLDL Calculation 18.74 mg/dL (5.00-40.00)
[2023-09-22] MEDS ORDERED: HEPARIN SODIUM 1,000 UN/ML (10ML VL) IV ONE ×2 (10:12→14:09)
[2023-09-22] MEDS ORDERED: HEPARIN SODIUM 1,000 UN/ML (10ML VL) IV PRN (10:12)
[2023-09-22] MEDS ORDERED: ALPRAZolam 0.5 MG TAB PO PRN (10:15)
[2023-09-22] MEDS ORDERED: ASPIRIN 325 MG TAB PO STA (10:15)
[2023-09-22] MEDS ORDERED: ATORVASTATIN 80 MG TAB PO STA (10:15)
[2023-09-22] MEDS ORDERED: HEPARIN SOD,PORK IN 0.45% NACL 25,000 UNIT in 0.45% NACL 1 250ML.BAG IV SCH (10:15)
[2023-09-22] MEDS ORDERED: NITROGLYCERIN SL TABS 0.4 MG TAB SUBLINGUAL PRN (10:15)
[2023-09-22] MEDS ORDERED: ALPRAZolam 0.25 MG TAB PO PRN (10:15)
--- NOTE | 2023-09-22 10:15 | P.CRDCN ---
History of Present Illness History of present illness: HISTORY OF PRESENT ILLNESS: This is a 57-year-old female with a past medical history significant for COPD, hypertension, fibromyalgia, depression, nicotine dependence, and coronary artery disease with previous inferior STEMI in October 2020 as well as most recent PCI on April 2022. Patient follows in the office with Dr. Hull. We have been asked to see the patient in consultation for chest pain and SVT. Patient examined at the bedside. Patient has been having palpitations for the past few weeks. She reports since having Covid she has been having some respiratory issues. She had some shortness of breath. She reports mild chest heaviness. She did take a nitro at home as well. She called EMS and was found to have a heart rate in the 180s. According to ER documentation, she was in SVT. However, there are no telemetry tracings available from EMS for review. She continues to smoke about a half pack per day. Patient has also stopped taking all her medications. * EKG reveals sinus mechanism with no signs of acute ischemia * Chest xray negative for acute process * Laboratory data: WBC 16.4. Troponin 0.012. 0.188. 0.263. TSH 4.450. * Current home cardiac medications include none * Most recent echocardiogram obtained in April 2022 field ejection fraction 45- 50% * Cardiac catheterization history: April 2022 revealing subtotal occlusion of the mid RCA with successful stenting and reduction of stenosis from 99% to 0%, moderate disease in the LAD, and moderate disease in the left circumflex. REVIEW OF SYSTEMS: At the time of my exam: CONSTITUTIONAL: Denies fever or chills. HEENT: Denies blurred vision, vision changes, or eye pain. Denies hemoptysis CARDIOVASCULAR: Denies chest pain. Denies orthopnea. Denies PND. Denies palpitations RESPIRATORY: Denies shortness of breath. GASTROINTESTINAL: Denies abdominal pain. Denies nausea or vomiting. HEMATOLOGIC: Denies bleeding disorders. GENITOURINARY: Denies any blood in urine. SKIN: Denies pruitis. Denies rash. PHYSICAL EXAM: VITAL SIGNS: Reviewed. GENERAL: Well-developed in no acute distress. HEENT: Head is normocephalic. Pupils are equal, round. Sclerae anicteric. Mucous membranes of the mouth are moist. Neck supple. No JVD or thyromegaly LUNGS: Respirations even and unlabored. Lungs essentially clear to auscultation bilaterally. HEART: Regular rate and rhythm. S1 and S2 heard. ABDOMEN: Soft. Nondistended. Nontender. EXTREMITIES: Normal range of motion. No clubbing or cyanosis. Peripheral pulses intact. No lower extremity edema NEUROLOGIC: Awake and alert. Oriented x 3. ASSESSMENT: Palpitations Paroxysmal SVT, converted to sinus mechanism with 6 mg of adenosine, no telemetry tracings available from EMS Non-STEMI Coronary artery disease with previous stenting to the RCA Hypertension Hyperlipidemia Fibromyalgia Depression COPD Nicotine dependence Medication noncompliance PLAN: Obtain 2-D echo to assess cardiac structure and function Continue aspirin 81 mg daily Add atorvastatin 40 mg at night Add metoprolol succinate 25mg daily Continue telemetry monitoring Smoking cessation encouraged Patient to undergo cardiac cath today with Dr. Hull Further recommendations pending patient's course Nurse practitioner note has been reviewed by physician. Signing provider agrees with the documented findings, assessment, and plan of care. Past Medical History Past Medical History: Asthma, Coronary Artery Disease (CAD), COPD, Fibromyalgia, Hypertension, Osteoarthritis (OA) Additional Past Medical History / Comment(s): GLAUCOMA History of Any Multi-Drug Resistant Organisms: None Reported Past Surgical History: Appendectomy, Breast Surgery, Tonsillectomy, Tubal Ligation Additional Past Surgical History / Comment(s): Cervix removal Past Anesthesia/Blood Transfusion Reactions: No Reported Reaction Date of Last Stent Placement:: 04/15/22 Past Psychological History: Anxiety, Depression, Panic Disorder, PTSD, Schizophrenia Smoking Status: Current every day smoker Past Alcohol Use History: Occasional Past Drug Use History: None Reported - Past Family History Brother(s) Family Medical History: Cancer Mother Family Medical History: Cancer Additional Family Medical History / Comment(s): MOTHER HAD BREAST CANCER Father History Unknown: Yes Medications and Allergies Home Medications Medication Instructions Recorded Confirmed Type Albuterol Sulfate [Proair Hfa] 2 puff INHALATION RT-Q4H PRN 04/11/22 09/22/23 History Albuterol Nebulized [Ventolin 2.5 mg INHALATION RT-QID PRN 09/22/23 09/22/23 History Nebulized] Allergies Allergy/AdvReac Type Severity Reaction Status Date / Time Penicillins Allergy Severe Anaphylaxis Verified 09/22/23 06:35 Physical Exam Vitals: Vital Signs Temp Pulse Resp BP Pulse Ox 09/22/23 06:34 78 18 157/86 98 09/22/23 06:16 82 09/22/23 06:04 79 09/22/23 01:00 81 18 141/93 98 09/22/23 00:00 89 18 150/73 98 09/21/23 23:00 94 18 111/90 98 09/21/23 22:00 98 18 137/91 98 09/21/23 21:58 98.2 F 98 18 121/98 99 Intake and Output 09/21/23 09/22/23 09/22/23 22:59 06:59 14:59 Other: Weight 80.739 kg Results 09/21/23 22:11 09/21/23 22:11 Cardiac Enzymes 09/21/23 09/21/23 09/21/23 Range/Units 22:11 22:11 23:58 AST 20 (14-36) U/L Troponin I <0.012 0.188 H* (0.000-0.034) ng/mL 09/22/23 Range/Units 02:58 AST (14-36) U/L Troponin I 0.263 H* (0.000-0.034) ng/mL Coagulation 09/21/23 Range/Units 22:11 PT 11.3 (10.0-12.5) sec APTT 23.9 (22.0-30.0) sec CBC 09/21/23 Range/Units 22:11 WBC 16.4 H (3.8-10.6) k/uL RBC 4.58 (3.80-5.40) m/uL Hgb 14.2 (11.4-16.0) gm/dL Hct 42.3 (34.0-46.0) % Plt Count 297 (150-450) k/uL Comprehensive Metabolic Panel 09/21/23 Range/Units 22:11 Sodium 136 L (137-145) mmol/L Potassium 4.1 (3.5-5.1) mmol/L Chloride 103 (98-107) mmol/L Carbon Dioxide 21 L (22-30) mmol/L BUN 16 (7-17) mg/dL Creatinine 0.57 (0.52-1.04) mg/dL Glucose 151 H (74-99) mg/dL Calcium 9.5 (8.4-10.2) mg/dL AST 20 (14-36) U/L ALT 20 (4-34) U/L Alkaline Phosphatase 93 (38-126) U/L Total Protein 7.2 (6.3-8.2) g/dL Albumin 4.0 (3.5-5.0) g/dL Current Medications Generic Name Dose Route Start Last Admin Trade Name Freq PRN Reason Stop Dose Admin Aspirin 81 mg 09/22/23 09:00 Aspirin 81 Mg PO DAILY JUAN Famotidine 20 mg 09/22/23 21:00 Famotidine 20 Mg Tab PO HS JUAN Nitroglycerin 0.4 mg 09/21/23 23:22 Nitroglycerin Sl Tabs 0.4 Mg Tab SUBLINGUAL Q5M PRN Chest Pain Intake and Output 09/21/23 09/22/23 09/22/23 22:59 06:59 14:59 Other: Weight 80.739 kg 09/21/23 22:11 09/21/23 22:11
[2023-09-22] MEDS ORDERED: ASPIRIN 81 MG PO STA (10:18)
[2023-09-22] MEDS: NICOTINE 14MG/24HR PATCH TRANSDERM SCH (10:51)
[2023-09-22 11:09] LABS: Basophils # (A) 0.1 k/uL (0-0.2); Basophils % (A) 1 %; Eosinophils # (A) 0.3 k/uL (0-0.7); Eosinophils % (A) 3 %; HCT 41.7 % (34.0-46.0); HGB 13.9 gm/dL (11.4-16.0); Lymphocytes # (A) 3.4 k/uL (1.0-4.8); Lymphocytes % (A) 30 %; MCH 31.5 pg (25.0-35.0); MCHC 33.4 g/dL (31.0-37.0); MCV 94.2 fL (80.0-100.0); Mean Platelet Volume 7.4; Monocytes # (A) 0.7 k/uL (0-1.0); Monocytes % (A) 6 %; Neutrophils # (A) 6.9 k/uL (1.3-7.7); Neutrophils % (A) 60 %; Platelet Count 297 k/uL (150-450); RBC 4.43 m/uL (3.80-5.40); RDW 13.4 % (11.5-15.5); WBC 11.5 k/uL (3.8-10.6)
[2023-09-22 11:19] LABS: Partial Thromboplastin Time 24.2 sec (22.0-30.0); Prothrombin Time 11.3 sec (10.0-12.5)
--- NOTE | 2023-09-22 13:28 | P.HPIM ---
History of Present Illness 57-year-old the female came in with complaints of chest pressure like sensation found to be in SVT. Patient was given adenosine, presently sinus rhythm with controlled heart rate. Patient was comparing of shortness of breath does have history of smoking smokes about half a pack of cigarettes a day. Patient also complaining of chest pressure-like sensation with first of troponin being normal second one elevated to 0.25) 1-0.125. Patient had history of cardiac catheterization in April 2022 which showed RCA occlusion which was subsequently stented. There was moderate disease in LAD and left circumflex as well causing all these patient will undergo cardiac catheterization today patient had mild ischemic cardiomyopathy with EF of around 45% presently not in acute exacerbation of CHF at this time although patient does have cough without any significant productive sputum production was diagnosed with COPD. Patient had pulmonary nodule which is being followed as an outpatient chest x-ray didn't show any significant abnormality. REVIEW OF SYSTEMS: CONSTITUTIONAL: No fever, no malaise, no fatigue. HEENT: No recent visual problems or hearing problems. Denied any sore throat. CARDIOVASCULAR: No orthopnea, PND, no palpitations, no syncope. PULMONARY: No shortness of breath, no cough, no hemoptysis. GASTROINTESTINAL: No diarrhea, no nausea, no vomiting, no abdominal pain. NEUROLOGICAL: No headaches, no weakness, no numbness. HEMATOLOGICAL: Denies any bleeding or petechiae. GENITOURINARY: Denies any burning micturition, frequency, or urgency. MUSCULOSKELETAL/RHEUMATOLOGICAL: Denies any joint pain, swelling, or any muscle pain. ENDOCRINE: Denies any polyuria or polydipsia. The rest of the 14-point review of systems is negative. PHYSICAL EXAMINATION: GENERAL: The patient is alert and oriented x3, not in any acute distress. Well developed, well nourished. HEENT: Pupils are round and equally reacting to light. EOMI. No scleral icterus. No conjunctival pallor. Normocephalic, atraumatic. No pharyngeal erythema. No thyromegaly. CARDIOVASCULAR: S1 and S2 present. No murmurs, rubs, or gallops. PULMONARY: Chest is clear to auscultation, no wheezing or crackles. ABDOMEN: Soft, nontender, nondistended, normoactive bowel sounds. No palpable organomegaly. MUSCULOSKELETAL: No joint swelling or deformity. EXTREMITIES: No cyanosis, clubbing, or pedal edema. NEUROLOGICAL: Gross neurological examination did not reveal any focal deficits. SKIN: No rashes. Assessment and plan -Possible acute non-ST elevation myocardial infarction patient undergo cardiac physician presently on IV heparin -SVT probably secondary to myocardial infarction resolved at this time patient will be on beta erasmo -COPD without any acute exacerbation neck and have him continue smoking history: Counseling was provided -Ischemic cardiomyopathy EF of around 45 to 50% presently not in acute exacerbation patient has chronic systolic dysfunction -Pulmonary nodule which is being followed as an outpatient -Hyperlipidemia DVT prophylaxis: IV heparin Past Medical History Past Medical History: Asthma, Coronary Artery Disease (CAD), COPD, Fibromyalgia, Hypertension, Osteoarthritis (OA) Additional Past Medical History / Comment(s): GLAUCOMA History of Any Multi-Drug Resistant Organisms: None Reported Past Surgical History: Appendectomy, Breast Surgery, Tonsillectomy, Tubal Ligation Additional Past Surgical History / Comment(s): Cervix removal Past Anesthesia/Blood Transfusion Reactions: No Reported Reaction Date of Last Stent Placement:: 04/15/22 Past Psychological History: Anxiety, Depression, Panic Disorder, PTSD, Schizophrenia Smoking Status: Current every day smoker Past Alcohol Use History: Occasional Past Drug Use History: None Reported - Past Family History Brother(s) Family Medical History: Cancer Mother Family Medical History: Cancer Additional Family Medical History / Comment(s): MOTHER HAD BREAST CANCER Father History Unknown: Yes Medications and Allergies Home Medications Medication Instructions Recorded Confirmed Type Albuterol Sulfate [Proair Hfa] 2 puff INHALATION RT-Q4H PRN 04/11/22 09/22/23 History Albuterol Nebulized [Ventolin 2.5 mg INHALATION RT-QID PRN 09/22/23 09/22/23 History Nebulized] Allergies Allergy/AdvReac Type Severity Reaction Status Date / Time Penicillins Allergy Severe Anaphylaxis Verified 09/22/23 06:35 Physical Exam Vitals: Vital Signs Temp Pulse Resp BP Pulse Ox 09/22/23 11:48 73 18 160/90 94 L 09/22/23 11:02 80 18 148/78 100 09/22/23 09:00 78 18 162/87 98 09/22/23 06:34 78 18 157/86 98 09/22/23 06:16 82 09/22/23 06:04 79 09/22/23 01:00 81 18 141/93 98 09/22/23 00:00 89 18 150/73 98 09/21/23 23:00 94 18 111/90 98 09/21/23 22:00 98 18 137/91 98 09/21/23 21:58 98.2 F 98 18 121/98 99 Intake and Output 09/21/23 09/22/23 09/22/23 22:59 06:59 14:59 Other: Weight 80.739 kg 80.739 kg Results CBC & Chem 7: 09/22/23 10:52 09/21/23 22:11 Labs: Abnormal Lab Results - Last 24 Hours (Table) 09/21/23 09/21/23 09/21/23 Range/Units 22:11 22:11 23:58 WBC 16.4 H (3.8-10.6) k/uL Neutrophils # 10.9 H (1.3-7.7) k/uL Sodium 136 L (137-145) mmol/L Carbon Dioxide 21 L (22-30) mmol/L Glucose 151 H (74-99) mg/dL Troponin I 0.188 H* (0.000-0.034) ng/mL 09/22/23 09/22/23 09/22/23 Range/Units 02:58 10:52 10:52 WBC 11.5 H (3.8-10.6) k/uL Neutrophils # (1.3-7.7) k/uL Sodium (137-145) mmol/L Carbon Dioxide (22-30) mmol/L Glucose (74-99) mg/dL Troponin I 0.263 H* 0.149 H* (0.000-0.034) ng/mL Thrombosis Risk Factor Assmnt - Choose All That Apply Each Factor Represents 1 point: Abnormal pulmonary function (COPD), Age 41-60 years, Obesity (BMI >25) Thrombosis Risk Factor Assessment Total Risk Factor Score: 3 Thrombosis Risk Factor Assessment Level: Moderate Risk
[2023-09-22] MEDS ORDERED: fentaNYL (PF) 50 MCG/ML 2 ML AMP ONE (13:46)
[2023-09-22] MEDS ORDERED: MIDAZOLAM 2 MG/2 ML VIAL IVP ONE ×2 (13:53→14:01)
[2023-09-22] MEDS: fentaNYL (PF) 50 MCG/ML 2 ML AMP IVP ONE ×2 (13:53→14:01)
[2023-09-22] MEDS ORDERED: SODIUM CHLORIDE 0.9% 500 ML 500 ML IV ONE (13:56)
[2023-09-22] MEDS ORDERED: LIDOCAINE 1% INJ 10MG/ML (20 ML MDV) SQ ONE (13:58)
[2023-09-22] MEDS ORDERED: VERAPAMIL SYRINGE (5 MG/10 ML) INTRAARTER ONE (13:59)
[2023-09-22] MEDS ORDERED: IOPAMIDOL-370 100ML BTL INJ ONE (14:14)
[2023-09-22] MEDS: SODIUM CHLORIDE 0.9% 1,000 ML in EMPTY BAG 1 BAG IV SCH (16:07)
[2023-09-22] MEDS ORDERED: ATORVASTATIN 40 MG TAB PO SCH (21:00)
[2023-09-22] MEDS ORDERED: FAMOTIDINE 20 MG TAB PO SCH (21:00)
[2023-09-22] MEDS: IPRATROPIUM-ALBUTEROL 3 ML NEB INHALATION PRN (22:10)
--- NOTE | 2023-09-22 22:19 | P.CARDCATH ---
Description of Procedure: PROCEDURES PERFORMED: Left heart catheterization, bilateral coronary angiography, ultrasound guided arterial access INDICATION: NSTEMI CONSENT:I have discussed the risks, benefits and alternative therapies for the above-mentioned procedure and for both sedation/analgesia as well as necessary blood product administration, if indicated, as they pertain to this patient. The patient has indicated understanding and acceptance of the risks and procedures discussed. PROCEDURE: After the risks, benefits and alternatives of the above mentioned procedure explained in detail with the patient, informed consent was obtained. Patient was taken to the catheterization lab and prepped and draped in usual fashion. Ultrasound guidance was used to assess for arterial access. 1% lidocaine was used to anesthetize the right radial artery. A 6-B[place]wanan sheath was placed in the right radial artery using modified Seldinger technique and ultrasound guidance. Left coronary angiography was performed with a 5-[place] JL 3.5 catheter and right coronary angiography was performed with a 5-[place] FR5 catheter in various views. A 5-[place] FR5 catheter was inserted into the left ventricle and pressure measurements were obtained. The right radial sheath was removed and a TR band was placed with hemostasis achieved. The patient tolerated the procedure well. Patient was transported back to the post catheterization holding area in stable condition. Conscious Sedation: Patient was monitored under the direct supervision of myself for conscious sedation using Versed and fentanyl for a total duration of 16 minutes HEMODYNAMICS: Aorta: 137/82 LV: 141/16, LVEDP 23 SELECTIVE CORONARY ARTERIOGRAPHY: LEFT MAIN: The left main is a large caliber vessel which bifurcates into the LAD and circumflex. There is no significant stenosis. LEFT ANTERIOR DESCENDING CORONARY ARTERY: LAD is a large caliber vessel which wraps around to the apex. There is a proximal 30-40% LAD stenosis and a mid LAD 50% stenosis. LEFT CIRCUMFLEX CORONARY ARTERY: Left circumflex is a moderate caliber vessel with mild diffuse disease. There is proximal 40% stenosis and mid to distal 30- 40% stenosis. RIGHT CORONARY ARTERY: The right coronary artery is a moderate to large caliber vessel which gives off a PDA and PLV branch and is the dominant vessel. There is a patent mid RCA stent with 10-20% in stent stenosis. There is otherwise 20- 30% proximal RCA stenosis FINAL IMPRESSION: 1. CAD as described above with proximal LAD 30-40% LAD, mid LAD 50% stenosis, 40% proximal circumflex, 20-30% RCA stenosis 2. Elevated left sided filling pressures PLAN: 1. Aggressive risk factor modification per most recent ACC/AHA guidelines. 2. Follow-up in the office in 1-2 weeks.
[2023-09-23] MEDS: SODIUM CHLORIDE 0.9% 1,000 ML in EMPTY BAG 1 BAG IV SCH (01:29)
[2023-09-23] MEDS: IPRATROPIUM-ALBUTEROL 3 ML NEB INHALATION PRN (06:25)
[2023-09-23 08:33] LABS: Basophils # (A) 0.1 k/uL (0-0.2); Basophils % (A) 0 %; Eosinophils # (A) 0.3 k/uL (0-0.7); Eosinophils % (A) 3 %; HGB 13.4 gm/dL (11.4-16.0); Lymphocytes % (A) 23 %; MCH 31.5 pg (25.0-35.0); MCHC 33.5 g/dL (31.0-37.0); MCV 93.8 fL (80.0-100.0); Mean Platelet Volume 9.3; Monocytes # (A) 0.9 k/uL (0-1.0); Monocytes % (A) 7 %; Neutrophils # (A) 8.3 k/uL (1.3-7.7); Neutrophils % (A) 66 %; Platelet Count 286 k/uL (150-450); RBC 4.26 m/uL (3.80-5.40); RDW 13.5 % (11.5-15.5); WBC 12.7 k/uL (3.8-10.6)
[2023-09-23 08:39] LABS: INR 1.1 (<1.2); Prothrombin Time 11.6 sec (10.0-12.5)
[2023-09-23 08:59] VITALS: RESP 16
[2023-09-23] MEDS ORDERED: METOPROLOL SUCCINATE (ER) 25 MG TAB.ER.24H PO SCH (09:00)
[2023-09-23] MEDS: NICOTINE 14MG/24HR PATCH TRANSDERM SCH (09:03)
[2023-09-23] MEDS: ASPIRIN 81 MG PO SCH (09:05)
--- NOTE | 2023-09-23 11:47 | P.PN ---
Subjective HISTORY OF PRESENT ILLNESS: This is a 57-year-old female with a past medical history significant for COPD, hypertension, fibromyalgia, depression, nicotine dependence, and coronary artery disease with previous inferior STEMI in October 2020 as well as most recent PCI on April 2022. Patient follows in the office with Dr. Hull. We have been asked to see the patient in consultation for chest pain and SVT. Patient examine d at the bedside. Patient has been having palpitations for the past few weeks. She reports since having Covid she has been having some respiratory issues. She had some shortness of breath. She reports mild chest heaviness. She did take a nitro at home as well. She called EMS and was found to have a heart rate in the 180s. According to ER documentation, she was in SVT. However, there are no telemetry tracings available from EMS for review. She continues to smoke about a half pack per day. Patient has also stopped taking all her medications. * EKG reveals sinus mechanism with no signs of acute ischemia * Chest xray negative for acute process * Laboratory data: WBC 16.4. Troponin 0.012. 0.188. 0.263. TSH 4.450. * Current home cardiac medications include none * Most recent echocardiogram obtained in April 2022 field ejection fraction 45- 50% * Cardiac catheterization history: April 2022 revealing subtotal occlusion of the mid RCA with successful stenting and reduction of stenosis from 99% to 0%, moderate disease in the LAD, and moderate disease in the left circumflex. 09/23/2023 Patient examined this morning at the bedside. Patient is status post cardiac catheterization with Dr. Hull revealing 30-40% proximal LAD stenosis, mid LAD 50% stenosis, 40% proximal circumflex, and 20-30% RCA stenosis. Patient denies any chest pain or pressure. She denies shortness of breath. Vital signs are stable. PHYSICAL EXAM: VITAL SIGNS: Reviewed. GENERAL: Well-developed in no acute distress. HEENT: Head is normocephalic. Pupils are equal, round. Sclerae anicteric. Mucous membranes of the mouth are moist. Neck supple. No JVD or thyromegaly LUNGS: Respirations even and unlabored. Lungs essentially clear to auscultation bilaterally. HEART: Regular rate and rhythm. S1 and S2 heard. ABDOMEN: Soft. Nondistended. Nontender. EXTREMITIES: Normal range of motion. No clubbing or cyanosis. Peripheral pulses intact. No lower extremity edema NEUROLOGIC: Awake and alert. Oriented x 3. ASSESSMENT: Palpitations Paroxysmal SVT, converted to sinus mechanism with 6 mg of adenosine, no telemetry tracings available from EMS Non-STEMI status post cardiac catheterization as above Coronary artery disease with previous stenting to the RCA Hypertension Hyperlipidemia Fibromyalgia Depression COPD Nicotine dependence Medication noncompliance PLAN: Continue current cardiac medications Smoking cessation encouraged Medication compliance encouraged Patient may be discharged home today from a cardiac standpoint and follow up in the office on an outpatient basis Nurse practitioner note has been reviewed by physician. Signing provider agrees with the documented findings, assessment, and plan of care. Objective - Vital Signs Vital signs: Vital Signs Temp 98.2 F 09/22/23 20:00 Pulse 82 09/23/23 06:25 Resp 18 09/23/23 04:00 BP 118/76 09/23/23 04:00 Pulse Ox 95 09/23/23 04:00 FiO2 Intake & Output 09/22/23 09/23/23 09/23/23 18:59 06:59 18:59 Intake Total 640 Balance 640 Weight 80.739 kg Intake: IV 100 Oral 540 Other: # Voids 1 - Labs CBC & Chem 7: 09/23/23 07:36 09/21/23 22:11 Labs: Abnormal Lab Results - Last 24 Hours (Table) 09/22/23 09/22/23 Range/Units 10:52 10:52 WBC 11.5 H (3.8-10.6) k/uL Troponin I 0.149 H* (0.000-0.034) ng/mL
[2023-09-23 11:56] VITALS: BP 150/82; PULSE 76; TEMP 98.1
--- NOTE | 2023-09-23 12:03 | CA ---
Transthoracic Echo Report Name: Chelsea Solo Age: 57 Gender: F : 1965 Exam Date: 09/23/2023 08:03 Exam Location: [facility] Ht (in): 60 Wt (lb): 178 Ordering Physician: Yumiko Moreno Attending/Referring Phys: [id number], Josh Distance Learning Coordinator Jennifer Lawson RDCS Procedure CPT: Indications: LV function, SVT, abnormal troponins Cardiac Hx: Technical Quality: Fair Contrast 1: Total Dose (mL): Contrast 2: Total Dose (mL): MEASUREMENTS (Male / Female) Normal Values 2D ECHO LV Diastolic Diameter PLAX 4.0 cm 4.2 - 5.9 / 3.9 - 5.3 cm LV Systolic Diameter PLAX 2.9 cm IVS Diastolic Thickness 1.3 cm 0.6 - 1.0 / 0.6 - 0.9 cm LVPW Diastolic Thickness 1.2 cm 0.6 - 1.0 / 0.6 - 0.9 cm LV Relative Wall Thickness 0.6 RV Internal Dim ED PLAX 3.1 cm LA Systolic Diameter LX 3.8 cm 3.0 - 4.0 / 2.7 - 3.8 cm LV Diastolic Volume MOD 4C 137.6 cm??? LV Systolic Volume MOD 4C 70.7 cm??? LV Ejection Fraction MOD 4C 48.6 % LV Cardiac Index MOD 4C 3012.2 cm???/min???m??? LV Diastolic Length 4C 8.4 cm LV Systolic Length 4C 7.2 cm LV Diastolic Volume MOD 2C 113.9 cm??? LV Systolic Volume MOD 2C 54.5 cm??? LV Ejection Fraction MOD 2C 52.1 % LV Cardiac Index MOD 2C 2671.1 cm???/min???m??? LV Diastolic Length 2C 8.2 cm LV Systolic Length 2C 6.8 cm LA Volume 51.9 cm??? 18 - 58 / 22 - 52 cm??? LA Volume Index 27.5 cm???/m??? 16 - 28 cm???/m??? M-MODE Aortic Root Diameter MM 2.9 cm MV E Point Septal Separation 0.6 cm AV Cusp Separation MM 1.9 cm DOPPLER AV Peak Velocity 189.8 cm/s AV Peak Gradient 14.4 mmHg MV Area PHT 3.4 cm??? Mitral E Point Velocity 109.4 cm/s Mitral A Point Velocity 95.4 cm/s Mitral E to A Ratio 1.1 MV Deceleration Time 221.7 ms MV E' Velocity 8.4 cm/s Mitral E to MV E' Ratio 13.1 TR Peak Velocity 250.0 cm/s TR Peak Gradient 25.0 mmHg Right Ventricular Systolic Press 30.0 mmHg FINDINGS Left Ventricle Left ventricular ejection fraction is estimated at 55-60 %. Left ventricular cavity size normal. Mild concentric LVH. No obvious regional wall motion abnormality Right Ventricle Normal right ventricular size. Right ventricular systolic pressure within normal limits. Right Atrium Normal right atrial size. Left Atrium Normal left atrial size. Mitral Valve Mitral annular calcification. Trace mitral regurgitation. Aortic Valve Aortic valve not well visualized. No aortic valve stenosis or regurgitation. Tricuspid Valve Structurally normal tricuspid valve. Mild tricuspid regurgitation. Pulmonic Valve Pulmonic valve not well visualized. Pericardium No pericardial effusion. Aorta Normal size aortic root and proximal ascending aorta. CONCLUSIONS Left ventricular ejection fraction is estimated at 55-60 %. No obvious regional wall motion abnormality. Mild concentric LVH. No significant chamber size abnormality next and no significant valvular dysfunction x-ray no pericardial effusion RVSP estimated around 30 mmHg Previewed by: Dr Amos Ortiz (Electronically Signed) Final Date: 23 September 2023 12:02
--- NOTE | 2023-09-24 21:40 | P.DS ---
Providers Date of admission: 09/21/23 23:22 Attending physician: Anna Lopez MD Consults: 09/21/23 23:22 Consult Physician Routine Consulting Provider: Alfredo Hull Consult Reason/Comments: SVT. Chest pain Do you want consulting provider notified?: Yes Primary care physician: Stepan Domingo [facility] Hospital Course: Final Diagnosis Paroxysmal SVT, converted to sinus mechanism with adenosine Non-STEMI status post cardiac catheterization with findings of coronary artery disease did not receive any cardiac stent this admission Coronary artery disease with previous stenting to the RCA Hypertension Hyperlipidemia Fibromyalgia Depression COPD with no acute exacerbation, does have cough without sputum production Nicotine dependence chronic and ongoing counseled on cessation Medication noncompliance Discharge Disposition Patient is stable for discharge home. Has been cleared by cardiology. Recommending to continue on aspirin 81 mg daily and high intensity statin therapy. Patient to follow up with cardiology in 1 to 2 weeks. Has an appointment with PCP Dr. Stepan Domingo on 09/26/23. Recommend to repeat BMP in 2 to 3 days. Patient states she had followed up with pulmonary outpatient was told she does not have COPD and diagnosed as chronic bronchial asthma which she states she had as a child. She is requesting trelegy inhaler to be refilled this was sent in for her. Hospital Course This is a 57-year-old the female came in with complaints of chest pressure like sensation found to be in SVT. Patient was given adenosine, presently sinus rhythm with controlled heart rate. Patient was complaining of shortness of breath does have history of smoking smokes about half a pack of cigarettes a day. Patient also complaining of chest pressure-like sensation with first of troponin being normal second one elevated to 0.188, 0.263 and 0.149. Patient had history of cardiac catheterization in April 2022 which showed RCA occlusion which was subsequently stented. There was moderate disease in LAD and left circumflex as well causing all these patient will undergo cardiac catheterization today. Patient had mild ischemic cardiomyopathy with EF of around 45% presently not in acute exacerbation of CHF. Patient had pulmonary nodule which is being followed as an outpatient chest x-ray didn't show any significant abnormality. Pt underwent Cardiac catheterization with Dr. Hull revealing 30-40% proximal LAD stenosis, mid LAD 50% stenosis, 40% proximal circumflex, and 20-30% RCA stenosis. Patient did not undergo any cardiac stenting this admission. Had lipid panel done showing triglyceride levels 93.70, cholesterol 182, LDL 111.7, HDl 51.60. Patient encouraged to quit smoking. Patient is continued on optimized medical therapy including aspirin 81 mg daily, lipitor 40 mg HS, Toprol XL daily. Cleared from cardiology for discharge. Patient has no chest pain, no shortness of breath. Alert x3 and no focal neurological deficits noted. Cleared for discharge. Please see medication reconciliation for a list of current medications. Thank you for allowing us to participate in the care of this patient. The impression and plan of care has been dictated by Jaycee Thomson, Nurse Practitioner as directed. Dr. Graciela MD I have performed a history and physical examination and medical decision making of this patient, discussed the same with the dictator, and agree with the dictators assessment and plan as written, documented as a scribe. Based on total visit time, I have performed more than 50% of this visit. Patient Condition at Discharge: Stable Plan - Discharge Summary New Discharge Prescriptions: New Aspirin 81 mg PO DAILY #30 tab Nicotine 14Mg/24Hr Patch [Habitrol] 1 patch TRANSDERM DAILY #0 patch Atorvastatin [Lipitor] 40 mg PO HS #30 tab Nitroglycerin Sl Tabs [Nitrostat] 0.4 mg SUBLINGUAL Q5M PRN #20 tab PRN Reason: Chest Pain Famotidine [Pepcid] 20 mg PO HS #30 tab Metoprolol Succinate (ER) [Toprol XL] 25 mg PO DAILY #30 tab Fluticasone/Umeclidin/Vilanter [Trelegy Ellipta 100-62.5-25] 1 inhalation INHALATION DAILY #1 each Continue Albuterol Sulfate [Proair Hfa] 2 puff INHALATION RT-Q4H PRN PRN Reason: Shortness Of Breath Albuterol Nebulized [Ventolin Nebulized] 2.5 mg INHALATION RT-QID PRN #20 ml PRN Reason: Shortness Of Breath Discharge Medication List Albuterol Sulfate [Proair Hfa] 2 puff INHALATION RT-Q4H PRN 04/11/22 [History] Albuterol Nebulized [Ventolin Nebulized] 2.5 mg INHALATION RT-QID PRN #20 ml 09/23/23 [Rx] Aspirin 81 mg PO DAILY #30 tab 09/23/23 [Rx] Atorvastatin [Lipitor] 40 mg PO HS #30 tab 09/23/23 [Rx] Famotidine [Pepcid] 20 mg PO HS #30 tab 09/23/23 [Rx] Fluticasone/Umeclidin/Vilanter [Trelegy Ellipta 100-62.5-25] 1 inhalation INHALATION DAILY #1 each 09/23/23 [Rx] Metoprolol Succinate (ER) [Toprol XL] 25 mg PO DAILY #30 tab 09/23/23 [Rx] Nicotine 14Mg/24Hr Patch [Habitrol] 1 patch TRANSDERM DAILY #0 patch 09/23/23 [Rx] Nitroglycerin Sl Tabs [Nitrostat] 0.4 mg SUBLINGUAL Q5M PRN #20 tab 09/23/23 [Rx] Follow up Appointment(s)/Referral(s): Alfredo Hull DO [STAFF PHYSICIAN] - 10/02/23 8:45 am Stepan Domingo DO [Primary Care Provider] - 09/26/23 3:00 pm Ambulatory/Diagnostic Orders: Basic Metabolic Panel [LAB.AMB] Time Frame: 3 Days, Location: None Selected Patient Instructions/Handouts: Supraventricular Tachycardia (DC), Heart Catheterization (DC) Activity/Diet/Wound Care/Special Instructions: Follow up with pulmonary, cardiology and PCP Discharge Disposition: HOME SELF-CARE
--- NOTE | 2023-09-30 11:03 | CDI ---
Documentation Clarification Form Date: 09/30/2023 10:52:54 AM From: Radha Vega Phone: Admit Date: 09/21/2023 11:22:00 PM Patient Name: Chelsea Solo Visit Number: [id number] Discharge Date: 09/23/2023 01:37:00 PM ATTENTION: The Clinical Documentation Specialists (CDI) and [facility] Coding Staff appreciate your assistance in clarifying documentation. Please respond to the clarification below the line at the bottom and electronically sign. The CDI & [facility] Coding staff will review the response and follow-up if needed. Please note: Queries are made part of the Legal Health Record. If you have any questions, please contact the author of this message via ITS. Dr. Chante Owens Your patient has the documented diagnosis of CHF presently not in acute exacerbation per H&P and DC Summary. Additional information regarding the type of CHF is requested. History/Risk Factors: 57yo F, ParoxysmalSVT,Non-STEMI, CAD w in-stent stenosis, HTN, HLD, Fibromyalgia, depression, COPD/Asthma, active smoker, Rx noncompliance Clinical Indicators: VS/Pulse OX: 94-100 Echocardiogram Results: LV EF is estimated at 55-60 %. No obviousregional wall motionabnormality. Mild concentric LVH. No significantchamber sizeabnormalitynext andno significantvalvular dysfunctionx- raynopericardial effusion. RVSP estimated around 30 mmHg. Chest X Ray: Heart: Unremarkable. Nocardiomegaly. Treatment: monitored In your professional opinion, can you please clarify the type of CHF if known? [ ] Chronic Systolic Heart Failure (reduced EF) [x ] Chronic Diastolic Heart Failure (preserved EF) [ ] Chronic Systolic & Diastolic Heart Failure [ ] Other, please specify [ ] Unable to determine (Template Last Revised: November 2020) MTDD
== END 2023-09-23 13:37 | disposition home or self-care (01) | DRG 190 ==
LOC: EC 21:57 → 3SCARD 23:22
PROVIDERS: ADMIT Internal Medicine; ATTEND Internal Medicine
PROC: 4A023N7 Measurement of Cardiac Sampling and Pressure, Left Heart, Percutaneous Approach (ICD-10-PCS; principal; 2023-09-22 11:00)
PROC: B2111ZZ Fluoroscopy of Multiple Coronary Arteries using Low Osmolar Contrast (ICD-10-PCS; 2023-09-22 11:00)
DX: I21.4 Non-ST elevation (NSTEMI) myocardial infarction (principal); I11.0 Hypertensive heart disease with heart failure; I50.32 Chronic diastolic (congestive) heart failure; T82.855A Stenosis of coronary artery stent, initial encounter; I47.19 Other supraventricular tachycardia; F32.A Depression, unspecified; I25.10 Atherosclerotic heart disease of native coronary artery without angina pectoris; E78.5 Hyperlipidemia, unspecified; M79.7 Fibromyalgia; F17.210 Nicotine dependence, cigarettes, uncomplicated; J44.89 Other specified chronic obstructive pulmonary disease; T39.016A Underdosing of aspirin, initial encounter; T46.6X6A Underdosing of antihyperlipidemic and antiarteriosclerotic drugs, initial encounter; T38.0X6A Underdosing of glucocorticoids and synthetic analogues, initial encounter; T44.7X6A Underdosing of beta-adrenoreceptor antagonists, initial encounter; I25.5 Ischemic cardiomyopathy; R91.1 Solitary pulmonary nodule; Y71.1 Therapeutic (nonsurgical) and rehabilitative cardiovascular devices associated with adverse incidents; I25.2 Old myocardial infarction; Z95.5 Presence of coronary angioplasty implant and graft; Z91.128 Patient's intentional underdosing of medication regimen for other reason; Z86.16 Personal history of COVID-19; Z79.899 Other long term (current) drug therapy; Z79.82 Long term (current) use of aspirin; Z79.51 Long term (current) use of inhaled steroids; Z88.0 Allergy status to penicillin
CPT/HCPCS: 36415; 71046; 76937; 80053; 80061; 83735; 84443; 84484; 85025; 85610; 85730; 93005; 93306; 93458; 94640; 96361; 96365; 96366; 96375; 99285

== ENCOUNTER 2023-10-12 08:06 | Emergency (ER) | payer OTHER ==
[2023-10-12] MEDS ORDERED: ACETAMINOPHEN TAB 325 MG TAB PO STA (08:39)
[2023-10-12] MEDS ORDERED: ONDANSETRON ODT 4 MG TAB PO STA (08:39)
[2023-10-12] MEDS ORDERED: IPRATROPIUM-ALBUTEROL 3 ML NEB INHALATION STA (08:39)
[2023-10-12 08:42] VITALS: TEMP 100.1
--- NOTE | 2023-10-12 09:18 | XR ---
EXAMINATION TYPE: XR chest 2V DATE OF EXAM: 10/12/2023 9:10 AM CLINICAL INDICATION:Female, 57 years old with history of sob; [facility] COMPARISON: 09/21/2023 TECHNIQUE: XR chest 2V. Frontal PA and lateral views of the chest. FINDINGS: Lines/Tubes: None. Heart/mediastinum: Heart size is normal. Mediastinal silhouette is unremarkable. Pulmonary vascularity: Not increased, Lungs/Pleura: There is no evidence of pleural effusion, focal consolidation, or pneumothorax. Possible mild hyperinflation. Musculoskeletal: No acute osseous abnormality demonstrated in the limits of the exam. Other findings: None. IMPRESSION: No acute cardiopulmonary abnormality.
--- NOTE | 2023-10-12 09:25 | ED ---
URI HPI - General Chief Complaint: Upper Respiratory Infection Stated Complaint: SOB, Weakness Time Seen by Provider: 10/12/23 08:23 Source: patient, RN notes reviewed Mode of arrival: ambulatory Limitations: no limitations - History of Present Illness Initial Comments: 57-year-old female presents emergency Department with chief complaint of cough and cold-like symptoms. Patient has been sick for last 4 days. Patient states that she has cough, nasal congestion, body aches, chills, fever. Patient states that she has had some shortness of breath but she has COPD. Patient denies any localized abdominal pain but she does have associated nausea, diarrhea. - Related Data Home Medications Medication Instructions Recorded Confirmed Albuterol Sulfate [Proair Hfa] 2 puff INHALATION RT-Q4H PRN 04/11/22 09/22/23 Previous Rx's Medication Instructions Recorded Albuterol Nebulized [Ventolin 2.5 mg INHALATION RT-QID PRN #20 ml 09/23/23 Nebulized] Aspirin 81 mg PO DAILY #30 tab 09/23/23 Atorvastatin [Lipitor] 40 mg PO HS #30 tab 09/23/23 Famotidine [Pepcid] 20 mg PO HS #30 tab 09/23/23 Fluticasone/Umeclidin/Vilanter 1 inhalation INHALATION DAILY #1 09/23/23 [Trelegy Ellipta 100-62.5-25] each Metoprolol Succinate (ER) [Toprol 25 mg PO DAILY #30 tab 09/23/23 XL] Nicotine 14Mg/24Hr Patch [Habitrol] 1 patch TRANSDERM DAILY #0 patch 09/23/23 Nitroglycerin Sl Tabs [Nitrostat] 0.4 mg SUBLINGUAL Q5M PRN #20 tab 09/23/23 predniSONE 50 mg PO DAILY #5 tab 10/12/23 Allergies Allergy/AdvReac Type Severity Reaction Status Date / Time Penicillins Allergy Severe Anaphylaxis Verified 10/12/23 08:22 Review of Systems ROS Statement: Those systems with pertinent positive or pertinent negative responses have been documented in the HPI. ROS Other: All systems not noted in ROS Statement are negative. Past Medical History Past Medical History: Asthma, Coronary Artery Disease (CAD), COPD, Fibromyalgia, Hypertension, Osteoarthritis (OA) Additional Past Medical History / Comment(s): GLAUCOMA History of Any Multi-Drug Resistant Organisms: None Reported Past Surgical History: Appendectomy, Breast Surgery, Tonsillectomy, Tubal Ligation Additional Past Surgical History / Comment(s): Cervix removal Past Anesthesia/Blood Transfusion Reactions: No Reported Reaction Date of Last Stent Placement:: 04/15/22 Past Psychological History: Anxiety, Depression, Panic Disorder, PTSD, Schizophrenia Smoking Status: Current every day smoker Past Alcohol Use History: Occasional Past Drug Use History: None Reported - Past Family History Brother(s) Family Medical History: Cancer Mother Family Medical History: Cancer Additional Family Medical History / Comment(s): MOTHER HAD BREAST CANCER Father History Unknown: Yes General Exam Limitations: no limitations General appearance: alert, in no apparent distress Head exam: Present: atraumatic, normocephalic, normal inspection Eye exam: Present: normal appearance, PERRL, EOMI. Absent: scleral icterus, conjunctival injection, periorbital swelling ENT exam: Present: normal exam, mucous membranes moist Neck exam: Present: normal inspection, full ROM. Absent: tenderness, meningismus, lymphadenopathy Respiratory exam: Present: wheezes. Absent: normal lung sounds bilaterally, respiratory distress, rales, rhonchi, stridor Cardiovascular Exam: Present: regular rate, normal rhythm, normal heart sounds. Absent: systolic murmur, diastolic murmur, rubs, gallop, clicks Neurological exam: Present: alert, oriented X3 Skin exam: Present: warm, dry, intact, normal color. Absent: rash Course Vital Signs 10/12/23 10/12/23 10/12/23 08:18 09:49 10:26 Temperature 100.1 F H Pulse Rate 82 80 Respiratory 18 20 Rate Blood Pressure 120/71 O2 Sat by Pulse 93 L Oximetry 10/12/23 10/12/23 10:37 10:56 Temperature Pulse Rate 80 75 Respiratory 20 Rate Blood Pressure 135/68 O2 Sat by Pulse 95 Oximetry Medical Decision Making - Medical Decision Making Was pt. sent in by a medical professional or institution (, PA, SE[employer] OFFICER, urgent care, hospital, or retirement...) When possible be specific @ -No Did you speak to anyone other than the patient for history (EMS, parent, family, police, friend...)? What history was obtained from this source @ -No Did you review nursing and triage notes (agree or disagree)? Why? @ -I reviewed and agree with nursing and triage notes Were old charts reviewed (outside hosp., previous admission, EMS record, old EKG, old radiological studies, urgent care reports/EKG's, retirement records)? Report findings @ -No old charts were reviewed Differential Diagnosis (chest pain, altered mental status, abdominal pain women, abdominal pain men, vaginal bleeding, weakness, fever, dyspnea, syncope, headache, dizziness, GI bleed, back pain, seizure, CVA, palpatations, mental health, musculoskeletal)? @ -nCOVID 19, RSV, influenza, pneumonia, acute bronchitis, URI, this list is not all inclusive EKG interpreted by me (3pts min.). @ -[None X-rays interpreted by me (1pt min.). @ -[Chest x-ray 2 view shows no evidence of pneumothorax, lobar pneumonia or acute changes CT interpreted by me (1pt min.). @ -None done U/S interpreted by me (1pt. min.). @ -None done What testing was considered but not performed or refused? (CT, X-rays, U/S, labs)? Why? @ -None What meds were considered but not given or refused? Why? @ -None Did you discuss the management of the patient with other professionals (professionals i.e. , PA, [employer] OFFICER, lab, RT, psych nurse, oncology social worker, funeral home director, teacher, jailer/training officer, director of casework department)? Give summary @ -No Was smoking cessation discussed for >3mins.? @ -No Was critical care preformed (if so, how long)? @ -No Were there social determinants of health that impacted care today? How? (Homelessness, low income, unemployed, alcoholism, drug addiction, transportation, low edu. Level, literacy, decrease access to med. care, prison, rehab)? @ -No Was there de-escalation of care discussed even if they declined (Discuss DNR or withdrawal of care, Hospice)? DNR status @ -No What co-morbidities impacted this encounter? (DM, HTN, Smoking, COPD, CAD, Cancer, CVA, ARF, Chemo, Hep., AIDS, mental health diagnosis, sleep apnea, morbid obesity)? @ -COPD Was patient admitted / discharged? Hospital course, mention meds given and route, prescriptions, significant lab abnormalities, going to OR and other pertinent info. @ -Discharge patient is positive for influenza A symptoms have been present for greater than 3 days. Tamiflu is not recommended. Patient was given steroids for her COPD. Patient was given breathing treatment in emergency room which she felt greatly improved. Undiagnosed new problem with uncertain prognosis? @ -No Drug Therapy requiring intensive monitoring for toxicity (Heparin, Nitro, Insulin, Cardizem)? @ -No Were any procedures done? @ -No Diagnosis/symptom? @ -Influenza A Acute, or Chronic, or Acute on Chronic? @ -[Acute Uncomplicated (without systemic symptoms) or Complicated (systemic symptoms)? @ -Uncomplicated Side effects of treatment? @ -No Exacerbation, Progression, or Severe Exacerbation? @ -No Poses a threat to life or bodily function? How? (Chest pain, USA, NV, pneumonia, PE, COPD, DKA, ARF, appy, cholecystitis, CVA, Diverticulitis, Homicidal, Suicidal, threat to staff... and all critical care pts) @ -No - Lab Data Lab Results 10/12/23 Range/Units 08:23 Influenza Type A (PCR) Detected A (Not Detectd) Influenza Type B (PCR) Not Detected (Not Detectd) RSV (PCR) Not Detected (Not Detectd) SARS-CoV-2 (PCR) Not Detected (Not Detectd) Disposition Clinical Impression: Influenza A, COPD (chronic obstructive pulmonary disease) Disposition: HOME SELF-CARE Condition: Stable Instructions (If sedation given, give patient instructions): Influenza (ED) Additional Instructions: Please return to the Emergency Department if symptoms worsen or any other concerns. Prescriptions: predniSONE 50 mg PO DAILY #5 tab Is patient prescribed a controlled substance at d/c from ED?: No Referrals: Stepan Domingo DO [Primary Care Provider] - 1-2 days Time of Disposition: 10:25
[2023-10-12 10:12] VITALS: RESP 20
[2023-10-12 10:57] VITALS: BP 135/68; PULSE 75
== END 2023-10-12 10:56 | disposition home or self-care (01) ==
LOC: EC 08:06
DX: J10.1 Influenza due to other identified influenza virus with other respiratory manifestations (principal); J44.89 Other specified chronic obstructive pulmonary disease; I10 Essential (primary) hypertension; I25.10 Atherosclerotic heart disease of native coronary artery without angina pectoris; Z20.822 Contact with and (suspected) exposure to COVID-19; Z79.899 Other long term (current) drug therapy; Z88.0 Allergy status to penicillin; Z90.49 Acquired absence of other specified parts of digestive tract
CPT/HCPCS: 71046; 87636; 94640; 99285

== ENCOUNTER → 2023-12-08 | Outpatient (CLI) | payer OTHER ==
--- NOTE | 2023-12-08 20:32 | CT ---
EXAMINATION TYPE: CT chest w con DATE OF EXAM: 12/08/2023 COMPARISON: 03/01/2022 HISTORY: f/u on enlarged lymphnodes x [address] DLP: 491 mGycm Automated exposure control for dose reduction was used. TECHNIQUE: CT scan of the chest is performed with IV Contrast, patient injected with 100 mL of Isovue 300. MIP Images are created on CT scanner and reviewed. 3D reconstructed images are created on an independent workstation and reviewed. FINDINGS: Tiny 2 mm pulmonary nodule in the left upper lobe. No suspicious lung mass seen. There are mild emphysematous changes. There is no pleural effusion, pleural thickening. There is no abnormal airspace/consolidative opacity or abnormal interstitial opacity. There is a stable 18 mm right hilar lymph node and a stable 10 mm left hilar lymph node. There is no axillary adenopathy. The osseous structures are intact. IMPRESSION: 1. Mild emphysematous changes. 2. No acute lung parenchymal disease. 3. Stable bilateral hilar enlarged lymph nodes.
== END | disposition home or self-care (01) ==
LOC: RADCTMAIN 16:18
PROVIDERS: ATTEND Internal Medicine
DX: R59.0 Localized enlarged lymph nodes (principal); J43.9 Emphysema, unspecified
CPT/HCPCS: 71260; Q9967

== ENCOUNTER → 2024-03-19 | Outpatient (CLI) | payer OTHER ==
--- NOTE | 2024-03-19 16:54 | US ---
EXAMINATION TYPE: US pelvis complete transvag DATE OF EXAM: 03/19/2024 COMPARISON: NONE CLINICAL INDICATION: Female, 58 years old with history of N93.9 ABNORMAL UTERINE BLEEDING; One day of spotting 6 weeks ago. LMP 6 yrs ago. . TECHNIQUE: . Transabdominal sonographic images of the pelvis were acquired. Transvaginal sonographi c images were medically necessary to better assess the following anatomy: Uterus Date of LMP: 6 years ago EXAM MEASUREMENTS: Uterus: 4.2 x 2.9 x 2.5 cm Endometrial Stripe: 0.6 cm Right Ovary: 1.6 x 1.5 x 0.7 cm Left Ovary: 1.8 x 1.5 x 0.9 cm 1. Uterus: Anteverted appears wnl 2. Endometrium: calcifications seen inside 3. Right Ovary: appears wnl 4. Left Ovary: appears wnl 5. Bilateral Adnexa: wnl 6. Posterior cul-de-sac: wnl IMPRESSION: 1. No evidence for acute process. 2. Endometrium within normal limits for thickness.
== END | disposition home or self-care (01) ==
LOC: RADUSWWP 15:02
PROVIDERS: ATTEND Family Medicine
DX: N93.9 Abnormal uterine and vaginal bleeding, unspecified (principal)
CPT/HCPCS: 76830; 76856

== ENCOUNTER → 2024-03-25 | Outpatient (CLI) | payer OTHER ==
--- NOTE | 2024-03-29 09:41 | MM ---
Reason for Exam: Screening (asymptomatic). Last mammogram was performed 4 year(s) and 5 month(s) ago. Patient History: Menarche at age 10. First Full-Term at age 27. Postmenopausal. 1998, Bilateral Benign Excisional Biopsy. 05/31/2011, Benign Cyst Aspiration on the left side. Mother had breast cancer, age 50. Risk Values: Rosangela 5 year model risk: 3.1%. NCI Lifetime model risk: 19.2%. Prior Study Comparison: 05/09/2011 Bilateral Diagnostic Mammogram, [facility]. 10/11/2015 Bilateral Diagnostic Mammogram, [facility]. 10/26/2019 Bilateral Screening Mammogram, [facility]. Tissue Density: The breasts are almost entirely fatty. Findings: Analyzed By CAD. Right breast: There is no suspicious group of microcalcifications or new suspicious mass. Left breast: There is no suspicious group of microcalcifications or new suspicious mass. Overall Assessment: Negative, BI-RAD 1 Management: Screening Mammogram of both breasts in [address] [facility] will attempt to contact patient to return for supplemental views and ultrasound if indicated. Patient should continue monthly self-breast exams. A clinical breast exam by your physician is recommended on an annual basis. This exam should not preclude additional follow-up of suspicious palpable abnormalities. Note on Rosangela scores and lifetime risk: 1. A Rosangela score greater than 3% is considered moderate risk. If this is the case, consider specialist referral to assess eligibility for a risk reducing agent. 2. If overall lifetime risk for the development of breast cancer is 20% or higher, the patient may qualify for future screening with alternating mammogram and breast MRI. Electronically signed and approved by: Montana Meehan DO
== END | disposition home or self-care (01) ==
LOC: RADMAMWWP 16:12
PROVIDERS: ATTEND Family Medicine
DX: Z12.31 Encounter for screening mammogram for malignant neoplasm of breast (principal); Z78.0 Asymptomatic menopausal state; Z80.3 Family history of malignant neoplasm of breast
CPT/HCPCS: 77067

== ENCOUNTER 2024-03-28 16:54 | Emergency (ER) | payer OTHER ==
[2024-03-28] MEDS: SODIUM CHLORIDE 0.9% 1,000 ML IV STA (17:11)
--- NOTE | 2024-03-28 17:24 | XR ---
EXAMINATION TYPE: XR chest 2V DATE OF EXAM: 03/28/2024 5:20 PM CLINICAL INDICATION:Female, 58 years old with history of syncope; [facility] COMPARISON: Chest radiographs from 11/18/2023 TECHNIQUE: XR chest 2V Frontal and lateral views of the chest. FINDINGS: Lungs/Pleura: Subsegmental atelectasis is present in the lung bases. No pleural effusions or pneumoth orax. Pulmonary vascularity: Unremarkable. Heart/mediastinum: Cardiomediastinal silhouette is unremarkable. Musculoskeletal: No acute osseous pathology. IMPRESSION: No acute cardiopulmonary disease/process.
[2024-03-28 17:28] LABS: ALT 12 U/L (4-34); AST 14 U/L (14-36); African American GFR (CKD) >90 (>60 ml/min/1.73 sqM); Alkaline Phosphatase 38 U/L (38-126); Anion Gap 3 mmol/L; Blood Urea Nitrogen 18 mg/dL (7-17); Carbon Dioxide 18 mmol/L (22-30); Chloride 122 mmol/L (98-107); Glucose 128 mg/dL (74-99); Magnesium 1.4 mg/dL (1.6-2.3); Non-African American GFR(CKD) >90 (>60 ml/min/1.73 sqM); Sodium 143 mmol/L (137-145); Total Bilirubin 0.3 mg/dL (0.2-1.3); Total Protein 4.1 g/dL (6.3-8.2)
--- NOTE | 2024-03-28 17:28 | ED ---
General Adult HPI - General Chief complaint: Syncope Stated complaint: Dizziness, Near syncope Time Seen by Provider: 03/28/24 16:57 Source: patient, EMS, RN notes reviewed, old records reviewed Mode of arrival: EMS Limitations: no limitations - History of Present Illness Initial comments: 58 female presenting with lightheadedness, diaphoresis, near syncope. Patient was outside at the local [facility]. She began to feel lightheaded. Paramedics were called. She was noted to have a blood pressure of 70 systolic and was diaphoretic. She had no dyspnea, no chest pain or abdominal pain. No vomiting. Medics were concerned that there was a subtle ST segment elevation on EKG and the patient does have history of ACS. She was given aspirin during transport as well as IV fluids and at the time of arrival after initial IV fluids she is feeling significantly better. - Related Data Home Medications Medication Instructions Recorded Confirmed Acetaminophen Tab [Tylenol Tab] 1,500 mg PO DAILY 03/28/24 03/28/24 Albuterol Sulfate [Ventolin HFA] 2 puff INHALATION RT-Q6H PRN 03/28/24 03/28/24 Atorvastatin [Lipitor] 40 mg PO DAILY 03/28/24 03/28/24 Fluticasone/Umeclidin/Vilanter 1 puff INHALATION RT-DAILY 03/28/24 03/28/24 [Trelegy Ellipta 200-62.5-25] Isosorbide Mononitrate ER [Imdur] 30 mg PO DAILY 03/28/24 03/28/24 lisinopriL [Zestril] 20 mg PO DAILY 03/28/24 03/28/24 Previous Rx's Medication Instructions Recorded Aspirin 81 mg PO DAILY #30 tab 09/23/23 Metoprolol Succinate (ER) [Toprol 25 mg PO DAILY #30 tab 09/23/23 XL] Nitroglycerin Sl Tabs [Nitrostat] 0.4 mg SUBLINGUAL Q5M PRN #20 tab 09/23/23 Allergies Allergy/AdvReac Type Severity Reaction Status Date / Time Penicillins Allergy Severe Anaphylaxis Verified 03/28/24 17:57 Review of Systems ROS Statement: Those systems with pertinent positive or pertinent negative responses have been documented in the HPI. ROS Other: All systems not noted in ROS Statement are negative. Past Medical History Past Medical History: Asthma, Coronary Artery Disease (CAD), COPD, Fibromyalgia, Hypertension, Myocardial Infarction (SC), Osteoarthritis (OA) Additional Past Medical History / Comment(s): GLAUCOMA History of Any Multi-Drug Resistant Organisms: None Reported Past Surgical History: Appendectomy, Breast Surgery, Heart Catheterization, Heart Catheterization With Stent, Tonsillectomy, Tubal Ligation Additional Past Surgical History / Comment(s): Cervix removal Past Anesthesia/Blood Transfusion Reactions: No Reported Reaction Date of Last Stent Placement:: 04/15/22 Past Psychological History: Anxiety, Depression, Panic Disorder, PTSD, Schizophrenia Smoking Status: Current every day smoker Past Alcohol Use History: Occasional Past Drug Use History: Marijuana - Past Family History Brother(s) Family Medical History: Cancer Mother Family Medical History: Cancer Additional Family Medical History / Comment(s): MOTHER HAD BREAST CANCER Father History Unknown: Yes General Exam General appearance: alert, in no apparent distress Head exam: Present: atraumatic, normocephalic Eye exam: Present: normal appearance, PERRL ENT exam: Present: normal exam, mucous membranes dry Respiratory exam: Present: normal lung sounds bilaterally. Absent: respiratory distress, wheezes Cardiovascular Exam: Present: regular rate, normal rhythm GI/Abdominal exam: Present: soft. Absent: distended, tenderness, guarding Extremities exam: Present: normal inspection, normal capillary refill. Absent: pedal edema, calf tenderness Neurological exam: Present: alert, oriented X3, CN II-XII intact. Absent: motor sensory deficit Psychiatric exam: Present: normal affect, normal mood Skin exam: Present: warm, dry, intact. Absent: cyanosis, diaphoretic Course Vital Signs 03/28/24 03/28/24 03/28/24 16:55 17:11 18:44 Temperature 98.6 F Pulse Rate 73 72 69 Respiratory 18 18 18 Rate Blood Pressure 108/71 103/56 104/60 O2 Sat by Pulse 96 97 96 Oximetry - Reevaluation(s) Reevaluation #1: 03/28/24 19:00 PT Feels completely normal after IV fluids, she is eager for discharge. Medical Decision Making - Medical Decision Making Was pt. sent in by a medical professional or institution (, PA, STRAIGHT EDGER, urgent care, hospital, or assisted...) When possible be specific @ -No Did you speak to anyone other than the patient for history (EMS, parent, family, police, friend...)? What history was obtained from this source @ -No Did you review nursing and triage notes (agree or disagree)? Why? @ -I reviewed and agree with nursing and triage notes Were old charts reviewed (outside hosp., previous admission, EMS record, old E KG, old radiological studies, urgent care reports/EKG's, assisted records)? Report findings @ -No old charts were reviewed Differential Syncope: Valvular disease, hypertrophic cardiomyopathy, pulmonary embolism, tamponade, tachycardia, bradycardia, SC, hypovolemia, hemorrhage, dissection, anemia, intracranial hemorrhage, seizure, hypoglycemia, carbon monoxide poisoning, this is not meant to be an all-inclusive list. EKG interpreted by me (3pts min.). @ -Sinus rhythm rate of 73, [place] interval 165, QRS duration 92, QTc [address] segment elevation or depression T waves are upright. X-rays interpreted by me (1pt min.). @ Chest x-ray negative for acute cardiopulmonary findings CT interpreted by me (1pt min.). @ -None done U/S interpreted by me (1pt. min.). @ -None done What testing was considered but not performed or refused? (CT, X-rays, U/S, labs)? Why? @ -None What meds were considered but not given or refused? Why? @ -None Did you discuss the management of the patient with other professionals (professionals i.e. , PA, STRAIGHT EDGER, lab, RT, psych nurse, social welfare administrator, manager strategy & account, teacher, senior major gifts officer, director case management)? Give summary @ -No Was smoking cessation discussed for >3mins.? @ -No Was critical care preformed (if so, how long)? @ -No Were there social determinants of health that impacted care today? How? (Homelessness, low income, unemployed, alcoholism, drug addiction, transportation, low edu. Level, literacy, decrease access to med. care, [facility], rehab)? @ -No Was there de-escalation of care discussed even if they declined (Discuss DNR or withdrawal of care, Hospice)? DNR status @ -No What co-morbidities impacted this encounter? (DM, HTN, Smoking, COPD, CAD, Canc er, CVA, ARF, Chemo, Hep., AIDS, mental health diagnosis, sleep apnea, morbid obesity)? @ -[Asthma, hypertension Was patient admitted / discharged? Hospital course, mention meds given and route, prescriptions, significant lab abnormalities, going to OR and other pertinent info. @ 58 female presenting with near syncope likely related to dehydration. Patient was out in the heat, had not had significant amount of fluid. She was initially hypotensive and diaphoretic. She had tunnel vision. After IV fluids her symptoms have improved. She has normal CBC, normal CMP, negative troponin. EKG is sinus rhythm. She has no active chest pain or dyspnea. Patient is eager for discharge at the time of my reevaluation. She is instructed on oral hydration and return parameters. Undiagnosed new problem with uncertain prognosis? @ -No Drug Therapy requiring intensive monitoring for toxicity (Heparin, Nitro, Insulin, Cardizem)? @ -No Were any procedures done? @ -No Diagnosis/symptom? @ -Near syncope, dehydration Acute, or Chronic, or Acute on Chronic? @ -[acute Uncomplicated (without systemic symptoms) or Complicated (systemic symptoms)? @ -Default Side effects of treatment? @ -No Exacerbation, Progression, or Severe Exacerbation? @ -No Poses a threat to life or bodily function? How? (Chest pain, USA, SC, pneumonia, PE, COPD, DKA, ARF, appy, cholecystitis, CVA, Diverticulitis, Homicidal, Suicidal, threat to staff... and all critical care pts) @ -[low risk at this time. - Lab Data Result diagrams: 03/28/24 17:04 03/28/24 18:11 Lab Results 03/28/24 03/28/24 03/28/24 Range/Units 17:04 17:04 17:04 WBC 12.2 H (3.8-10.6) k/uL RBC 4.02 (3.80-5.40) m/uL Hgb 13.4 (11.4-16.0) gm/dL Hct 38.4 (34.0-46.0) % MCV 95.4 (80.0-100.0) fL MCH 33.2 (25.0-35.0) pg MCHC 34.8 (31.0-37.0) g/dL RDW 13.2 (11.5-15.5) % Plt Count 207 (150-450) k/uL MPV 8.3 Neutrophils % 76 % Lymphocytes % 17 % Monocytes % 4 % Eosinophils % 1 % Basophils % 0 % Neutrophils # 9.2 H (1.3-7.7) k/uL Lymphocytes # 2.1 (1.0-4.8) k/uL Monocytes # 0.5 (0-1.0) k/uL Eosinophils # 0.2 (0-0.7) k/uL Basophils # 0.0 (0-0.2) k/uL PT 11.3 (10.0-12.5) sec INR 1.0 (<1.2) APTT 18.8 L (22.0-30.0) sec Sodium 143 (137-145) mmol/L Potassium 2.5 L* (3.5-5.1) mmol/L Chloride 122 H (98-107) mmol/L Carbon Dioxide 18 L (22-30) mmol/L Anion Gap 3 mmol/L BUN 18 H (7-17) mg/dL Creatinine 0.47 L (0.52-1.04) mg/dL Est GFR (CKD-EPI)AfAm >90 (>60 ml/min/1.73 sqM) Est GFR (CKD-EPI)NonAf >90 (>60 ml/min/1.73 sqM) Glucose 128 H (74-99) mg/dL Calcium 5.5 L* (8.4-10.2) mg/dL Magnesium 1.4 L (1.6-2.3) mg/dL Total Bilirubin 0.3 (0.2-1.3) mg/dL AST 14 (14-36) U/L ALT 12 (4-34) U/L Alkaline Phosphatase 38 (38-126) U/L Troponin I (0.000-0.034) ng/mL Total Protein 4.1 L (6.3-8.2) g/dL Albumin 2.0 L (3.5-5.0) g/dL 03/28/24 03/28/24 Range/Units 17:04 18:11 WBC (3.8-10.6) k/uL RBC (3.80-5.40) m/uL Hgb (11.4-16.0) gm/dL Hct (34.0-46.0) % MCV (80.0-100.0) fL MCH (25.0-35.0) pg MCHC (31.0-37.0) g/dL RDW (11.5-15.5) % Plt Count (150-450) k/uL MPV Neutrophils % % Lymphocytes % % Monocytes % % Eosinophils % % Basophils % % Neutrophils # (1.3-7.7) k/uL Lymphocytes # (1.0-4.8) k/uL Monocytes # (0-1.0) k/uL Eosinophils # (0-0.7) k/uL Basophils # (0-0.2) k/uL PT (10.0-12.5) sec INR (<1.2) APTT (22.0-30.0) sec Sodium 141 (137-145) mmol/L Potassium 4.0 (3.5-5.1) mmol/L Chloride 109 H (98-107) mmol/L Carbon Dioxide 29 (22-30) mmol/L Anion Gap 3 mmol/L BUN 26 H (7-17) mg/dL Creatinine 0.89 (0.52-1.04) mg/dL Est GFR (CKD-EPI)AfAm 84 (>60 ml/min/1.73 sqM) Est GFR (CKD-EPI)NonAf 73 (>60 ml/min/1.73 sqM) Glucose 93 (74-99) mg/dL Calcium 9.1 (8.4-10.2) mg/dL Magnesium (1.6-2.3) mg/dL Total Bilirubin 0.3 (0.2-1.3) mg/dL AST 16 (14-36) U/L ALT 18 (4-34) U/L Alkaline Phosphatase 74 (38-126) U/L Troponin I <0.012 (0.000-0.034) ng/mL Total Protein 6.4 (6.3-8.2) g/dL Albumin 3.8 (3.5-5.0) g/dL Disposition Clinical Impression: Near syncope, Dehydration Disposition: HOME SELF-CARE Condition: Fair Instructions (If sedation given, give patient instructions): Dehydration (ED), Near Syncope (ED) Is patient prescribed a controlled substance at d/c from ED?: No Referrals: Stepan Domingo DO [Primary Care Provider] - 1-2 days Time of Disposition: 18:58
[2024-03-28 17:34] LABS: Prothrombin Time 11.3 sec (10.0-12.5)
[2024-03-28 17:55] LABS: Basophils % (A) 0 %; Eosinophils # (A) 0.2 k/uL (0-0.7); Eosinophils % (A) 1 %; HCT 38.4 % (34.0-46.0); HGB 13.4 gm/dL (11.4-16.0); Lymphocytes # (A) 2.1 k/uL (1.0-4.8); Lymphocytes % (A) 17 %; MCH 33.2 pg (25.0-35.0); MCHC 34.8 g/dL (31.0-37.0); MCV 95.4 fL (80.0-100.0); Mean Platelet Volume 8.3; Monocytes # (A) 0.5 k/uL (0-1.0); Monocytes % (A) 4 %; Neutrophils # (A) 9.2 k/uL (1.3-7.7); Neutrophils % (A) 76 %; Partial Thromboplastin Time 18.8 sec (22.0-30.0); Platelet Count 207 k/uL (150-450); RBC 4.02 m/uL (3.80-5.40); RDW 13.2 % (11.5-15.5); WBC 12.2 k/uL (3.8-10.6)
[2024-03-28 17:56] LABS: Potassium 2.5 mmol/L (3.5-5.1)
[2024-03-28 17:57] LABS: Calcium 5.5 mg/dL (8.4-10.2)
[2024-03-28 18:33] LABS: ALT 18 U/L (4-34); AST 16 U/L (14-36); African American GFR (CKD) 84 (>60 ml/min/1.73 sqM); Albumin 3.8 g/dL (3.5-5.0); Alkaline Phosphatase 74 U/L (38-126); Anion Gap 3 mmol/L; Blood Urea Nitrogen 26 mg/dL (7-17); Calcium 9.1 mg/dL (8.4-10.2); Carbon Dioxide 29 mmol/L (22-30); Chloride 109 mmol/L (98-107); Glucose 93 mg/dL (74-99); Non-African American GFR(CKD) 73 (>60 ml/min/1.73 sqM); Sodium 141 mmol/L (137-145); Total Bilirubin 0.3 mg/dL (0.2-1.3); Total Protein 6.4 g/dL (6.3-8.2)
[2024-03-28 19:24] VITALS: BP 109/78; PULSE 89; RESP 20; TEMP 97.9
== END 2024-03-28 19:24 | disposition home or self-care (01) ==
LOC: EC 16:54
DX: E86.0 Dehydration (principal); F17.200 Nicotine dependence, unspecified, uncomplicated; F12.90 Cannabis use, unspecified, uncomplicated; Z88.0 Allergy status to penicillin
CPT/HCPCS: 36415; 71046; 80053; 83735; 84484; 85025; 85610; 85730; 93005; 96360; 99284

== ENCOUNTER → 2024-06-07 | Outpatient (CLI) | payer OTHER ==
[2024-06-08 02:10] LABS: Basophils # (A) 0.07 X 10*3/uL (0.00-0.10); Basophils % (A) 0.6 %; Eosinophils % (A) 3.6 %; HCT 43.3 % (37.2-46.3); HGB 14.4 g/dL (12.0-15.0); Lymphocytes # (A) 4.08 X 10*3/uL (0.90-5.00); Lymphocytes % (A) 36.2 %; MCH 32.1 pg (27.0-32.0); MCHC 33.3 g/dL (32.0-37.0); MCV 96.7 FL (80.0-97.0); Mean Platelet Volume 11.5 FL (9.5-12.2); Monocytes % (A) 6.2 %; NRBC Per 100 WBC 0 X 10*3/uL (0.00-0.01); Neutrophils # (A) 5.97 X 10*3/uL (1.80-7.70); Platelet Count 305 X 10*3/uL (140-440); RBC 4.48 X 10*6/uL (4.10-5.20); WBC 11.26 X 10*3/uL (4.50-10.00)
== END | disposition home or self-care (01) ==
LOC: LABPAT 15:20
PROVIDERS: ATTEND Obstetrics & Gynecology
DX: Z01.818 Encounter for other preprocedural examination
CPT/HCPCS: 85025; 93005

== ENCOUNTER 2024-06-11 06:06 | Day surgery (SDC) | payer OTHER ==
[~2024-06-11 06:06] MED LIST changes: +Pre Op ABX Message 1 EACH MISC MISCELLANE ONE; -fentaNYL (PF) 50 MCG/ML 2 ML AMP IV ONE
[2024-06-11] MEDS: IV FLUID CONTINUATION 1,000 ML IV ONE (06:45)
[2024-06-11] MEDS ORDERED: MIDAZOLAM 2 MG/2 ML VIAL IV PRN (07:00)
[2024-06-11] MEDS ORDERED: HYDROmorphone 0.5 MG/0.5 ML SYRINGE IVP PRN (07:00)
--- NOTE | 2024-06-11 07:00 | P.HPOB ---
History of Present Illness H&P Date: 06/11/24 Chief Complaint: postmenopausal bleeding 58 year old presents for D&C hysteroscopy for postmenopausal bleeding. US showed maybe some calcifications in the endometrium Review of Systems All systems: negative Constitutional: Denies chills, Denies fever Eyes: denies blurred vision, denies pain Ears, nose, mouth and throat: Denies headache, Denies sore throat Cardiovascular: Denies chest pain, Denies shortness of breath Respiratory: Denies cough Gastrointestinal: Denies abdominal pain, Denies diarrhea, Denies nausea, Denies vomiting Genitourinary: Denies dysuria, Denies hematuria Musculoskeletal: Denies myalgias Integumentary: Denies pruritus, Denies rash Neurological: Denies numbness, Denies weakness Psychiatric: Denies anxiety, Denies depression Endocrine: Denies fatigue, Denies weight change Past Medical History Past Medical History: Asthma, Coronary Artery Disease (CAD), Chest Pain / Angina, COPD, Eye Disorder, Fibromyalgia, Hearing Disorder / Deafness, Hyperlipidemia, Hypertension, Myocardial Infarction ([place]), Osteoarthritis (OA), Supraventricular Tachycardia (SVT) Additional Past Medical History / Comment(s): GLAUCOMA, cataracts, pre-cervical cancer, pre diabetic, near syncope/dizziness [email or web address] March 2024, [facility] left ear, no hearing aids Last Myocardial Infarction Date:: 2021 History of Any Multi-Drug Resistant Organisms: None Reported Past Surgical History: Appendectomy, Breast Surgery, Heart Catheterization, Heart Catheterization With Stent, Orthopedic Surgery, Tonsillectomy, Tubal Ligation Additional Past Surgical History / Comment(s): Cervix removal, benign marisela breast excisional biopsies, marisela bunion surg Past Anesthesia/Blood Transfusion Reactions: No Reported Reaction Date of Last Stent Placement:: 04/15/22 Smoking Status: Current every day smoker - Past Family History Brother(s) Family Medical History: Cancer Mother Family Medical History: Cancer Additional Family Medical History / Comment(s): MOTHER HAD BREAST CANCER Father History Unknown: Yes Medications and Allergies Home Medications Medication Instructions Recorded Confirmed Type Aspirin 81 mg PO DAILY #30 tab 09/23/23 06/11/24 Rx Metoprolol Succinate (ER) [Toprol 25 mg PO DAILY #30 tab 09/23/23 06/11/24 Rx XL] Nitroglycerin Sl Tabs [Nitrostat] 0.4 mg SUBLINGUAL Q5M PRN #20 tab 09/23/23 06/11/24 Rx Acetaminophen Tab [Tylenol Tab] 1,500 mg PO DAILY 03/28/24 06/11/24 History Albuterol Sulfate [Ventolin HFA] 2 puff INHALATION RT-Q6H PRN 03/28/24 06/11/24 History Atorvastatin [Lipitor] 40 mg PO DAILY 03/28/24 06/11/24 History Fluticasone/Umeclidin/Vilanter 1 puff INHALATION RT-DAILY 03/28/24 06/11/24 History [Trelegy Ellipta 200-62.5-25] Isosorbide Mononitrate ER [Imdur] 30 mg PO DAILY 03/28/24 06/11/24 History lisinopriL [Zestril] 20 mg PO DAILY 03/28/24 06/11/24 History Allergies Allergy/AdvReac Type Severity Reaction Status Date / Time Penicillins Allergy Severe Anaphylaxis Verified 06/11/24 06:45 Exam Osteopathic Statement: *. No significant issues noted on an osteopathic structural exam other than those noted in the History and Physical/Consult. Vital Signs Temp Pulse Resp BP Pulse Ox 06/11/24 06:45 97.9 F 66 16 189/81 98 Intake and Output 06/10/24 06/10/24 06/11/24 14:59 22:59 06:59 Other: Weight 83.1 kg Heart: Regular rate and rhythm Lungs: Clear to auscultation bilaterally Abdomen: Soft, nontender Extremities: Negative Homans sign Assessment and Plan (1) Postmenopausal bleeding Current Visit: Yes Status: Acute Code(s): N95.0 - POSTMENOPAUSAL BLEEDING SNOMED Code(s): 85348391 Plan: 1. D&C hysteroscopy. Medical clearance received from Dr. Hull.
[2024-06-11] MEDS: ONDANSETRON 4 MG/2 ML VIAL IVP ONE (07:13)
[2024-06-11] MEDS: DEXAMETHASONE SOD PHOSPHATE 4 MG/ML 1 ML VIAL IV ONE (07:13)
[2024-06-11] MEDS: LACTATED RINGERS 1,000 ML IV SCH (07:13)
[2024-06-11] MEDS: SCOPOLAMINE 1 MG/72 HR PATCH TRANSDERM ONE (07:13)
[2024-06-11] MEDS ORDERED: PROPOFOL 10 MG/ML 20 ML VIAL IV ONE (07:23)
[2024-06-11] MEDS ORDERED: fentaNYL (PF) 50 MCG/ML 2 ML AMP ONE (07:23)
[2024-06-11] MEDS ORDERED: MIDAZOLAM 2 MG/2 ML VIAL ONE (07:23)
[2024-06-11] MEDS ORDERED: LIDOCAINE 1% INJ 10MG/ML (20 ML MDV) ONE (07:23)
[2024-06-11 08:05] VITALS: TEMP 98.1
--- NOTE | 2024-06-11 08:29 | P.OP ---
Date of Procedure: 06/11/24 Preoperative Diagnosis: 1. postmenopausal bleeding Postoperative Diagnosis: same Procedure(s) Performed: D&C hysteroscopy Anesthesia: BEAR Surgeon: Rachel Foster Estimated Blood Loss (ml): 1 Pathology: other (endometrial currettings) Condition: stable Disposition: PACU Operative Findings: atrophic endometrium, uterus sounded to 6cm Description of Procedure: Patient was taken to the operating room where general anesthesia was obtained without difficulty. she is prepped and draped in normal sterile fashion dorsal lithotomy position, legs placed in the Mazin stirrups. Weighted speculum placed in vagina the anterior lip the cervix was grasped with single-tooth tenaculum. The uterus sounded to 6 cm. Cervix was then dilated with Scherer dilators. Hysteroscopy was performed. There was a smooth contour of the uterus and very thin pale endometrium. Sharp curet was then gently used to obtain endometrial curettings. All instruments were removed from the vagina. Patient to our procedure well. Sponge management counts correct 2. She was taken to recovery in stable condition.
[2024-06-11 08:44] VITALS: BP 161/93; PULSE 65; RESP 18
== END 2024-06-11 09:17 | disposition home or self-care (01) ==
LOC: OR 06:06
PROVIDERS: ATTEND Obstetrics & Gynecology
DX: N95.0 Postmenopausal bleeding (principal); E78.5 Hyperlipidemia, unspecified; I10 Essential (primary) hypertension; J44.9 Chronic obstructive pulmonary disease, unspecified; F32.A Depression, unspecified; I25.10 Atherosclerotic heart disease of native coronary artery without angina pectoris; F41.9 Anxiety disorder, unspecified; I25.2 Old myocardial infarction; M19.90 Unspecified osteoarthritis, unspecified site; M79.7 Fibromyalgia; F17.200 Nicotine dependence, unspecified, uncomplicated; Z85.41 Personal history of malignant neoplasm of cervix uteri; Z80.3 Family history of malignant neoplasm of breast; Z88.0 Allergy status to penicillin; Z90.49 Acquired absence of other specified parts of digestive tract; Z90.89 Acquired absence of other organs; Z98.51 Tubal ligation status; Z79.899 Other long term (current) drug therapy; Z79.02 Long term (current) use of antithrombotics/antiplatelets; Z79.811 Long term (current) use of aromatase inhibitors; Z79.51 Long term (current) use of inhaled steroids
CPT/HCPCS: 88305

== ENCOUNTER → 2024-12-27 | Outpatient (CLI) | payer OTHER ==
--- NOTE | 2024-12-27 13:20 | CT ---
EXAMINATION TYPE: CT chest w con CT DLP: 544 mGycm, Automated exposure control for dose reduction was used. DATE OF EXAM: 12/27/2024 1:12 PM COMPARISON: CT chest 12/08/2023, 02/11/2022, CTA chest 10/27/2021 CLINICAL INDICATION:Female, 58 years old with history of R59.0 LOCALIZED ENLARGED LYMPH NODES; PHH, e nlarged lymph nodes TECHNIQUE: Multiple axial images were obtained through the chest following the administration of 100 cc of Isovue 300. . Coronal and sagittal reformats reviewed. FINDINGS: LUNGS/ PLEURA: No pleural effusion or pneumothorax. Bilateral lower lobe minimal linear atelectasis. Mild centrilobular paraseptal emphysematous changes. No suspicious pulmonary nodule or mass. AIRWAY: Patent and unremarkable.. HEART: Size within normal limits.No pericardial effusion. Mild coronary artery calcifications present . Most pronounced within the LAD. MEDIASTINUM: No pathologically enlarged mediastinal lymph nodes. Decreased size of left hilar lymph n ode measuring 0.8 cm, previously 1.1 cm (series 3, image 27). Marginal decrease in size of right marily r lymph node measuring 1.6 cm, previously 1.8 cm (series 3, image 25). No new adenopathy. VASCULATURE: No aortic aneurysm. Mild atherosclerotic calcification of the aorta and its branches. MUSCULOSKELETAL: No acute osseous abnormalities SOFT TISSUES/LYMPH NODES: Unremarkable. LOWER NECK: No significant findings. UPPER ABDOMEN: No significant findings. IMPRESSION: 1. No acute thoracic process. 2. Mildly decreased size of bilateral hilar lymph nodes from prior exam. 3. Mild emphysematous changes. [facility], , 12/27/2024 1:18 PM
== END | disposition home or self-care (01) ==
LOC: RADCTMAIN 12:45
PROVIDERS: ATTEND Internal Medicine
DX: J43.9 Emphysema, unspecified (principal); R59.0 Localized enlarged lymph nodes
CPT/HCPCS: 71260; Q9967